=== PATIENT | male | born 1945 | race Caucasian/White ===

== ENCOUNTER → 2017-01-13 19:14 | Outpatient (CLI) | payer MEDICARE, OTHER ==
[2015-12-18 10:08] VITALS: BMI 43.0
[~2017-01-13 19:14] MED LIST: ASPIRIN81 MG PO; BACLOFEN10 MG PO; BIOTIN5 MG PO; BOTOX200 UNIT INTRADERM; CALAN120 MG PO; COUMADIN5 MG PO; DEPAKOTE500 MG PO; ELIQUIS2.5 MG PO; GABAPENTIN100 MG PO; HCTZ25 MG PO; HYDROCODONE-APA1 TAB PO; IMITREX6 MG/0.51 SQ; K-DUR20 MEQ PO; LASIX40 MG PO; LOVENOX120 MG/0.8 SC; MAGNESIUM OXID250 MG PO; OMEGA 3 FISH OI1 CAP PO; OMEPRAZOLE20 M1 PO; PLAVIX75 MG PO; SYNTHROID175 MCG PO; VITAMIN B COMPL1 TAB PO; VITAMIN D250000 UNIT PO; ZOLOFT100 MG PO
== END | disposition home or self-care (01) ==
LOC: D.LABREF 19:14
DX: M25.562 Pain in left knee (principal); Z11.8 Encounter for screening for other infectious and parasitic diseases

== ENCOUNTER 2017-01-22 10:51 | Emergency (ER) | payer MEDICARE, OTHER ==
[2015-12-18 10:08] VITALS: BMI 43.0
[~2017-01-22 10:51] MED LIST changes: -BACLOFEN10 MG PO; -BIOTIN5 MG PO; -COUMADIN5 MG PO; -ELIQUIS2.5 MG PO; -LASIX40 MG PO; -LOVENOX120 MG/0.8 SC; -OMEGA 3 FISH OI1 CAP PO; -OMEPRAZOLE20 M1 PO; -VITAMIN B COMPL1 TAB PO
[2017-01-22 12:12] LABS: BASOPHILS 0.3 % (0-2); EOSINOPHILS 2.8 % (0-7); HEMATOCRIT 40.5 % (42.0-54.0); HEMOGLOBIN 13.1 g/dL (13.5-17.5); IMMATURE GRANULOCYTES 0.8 % (0-5); LYMPHOCYTES 26.6 % (15-50); MCH 28.8 pg (26.0-34.0); MCHC 32.3 g/dL (31.0-37.0); MEAN PLATELET VOLUME 9.9 fL (7.4-10.4); MONOCYTES 10.1 % (2-11); NEUTROPHILS 59.4 % (40-80); PLATELET COUNT 151 10x3/uL (130-400); RBC 4.55 10x6/uL (4.20-6.10); RDW 13.5 % (11.5-14.5); WBC 7.5 10x3/uL (4.8-10.8)
[2017-01-22 12:26] LABS: ALBUMIN 3.5 g/dL (3.4-5.0); ALKALINE PHOSPHATASE 108 U/L (46-116); ALT (SGPT) 27 U/L (10-68); BILIRUBIN - TOTAL 0.31 mg/dL (0.2-1.3); CALC OSMOLALITY 279 mosm/kg (275-300); CHLORIDE - SERUM 100 mmol/L (98-107); CREATININE - SERUM 0.8 mg/dL (0.6-1.3); GLUCOSE 107 mg/dL (74-106); POTASSIUM - SERUM 4.1 mmol/L (3.5-5.1); PROTEIN - SERUM 7.3 g/dL (6.4-8.2); SODIUM 139 mmol/L (136-145); UREA NITROGEN 19 mg/dL (7-18); VALPROIC ACID (DEPAKOTE) 64.6 ug/mL (50.0-100.0); eGFR NON AFRICAN AMERICAN > 90 mL/min (90-120)
[2017-02-23] MEDS ORDERED: OMEGA 3 FISH OI1 CAP PO (09:02)
[2017-02-23] MEDS ORDERED: OMEPRAZOLE20 M1 PO (09:03)
[2017-02-23] MEDS ORDERED: BACLOFEN10 MG PO (09:03)
[2017-02-23] MEDS ORDERED: LASIX40 MG PO (09:04)
[2017-02-23] MEDS ORDERED: BIOTIN5 MG PO (09:06)
[2017-02-23] MEDS ORDERED: VITAMIN B COMPL1 TAB PO (09:07)
== END 2017-01-22 14:44 | disposition home or self-care (01) ==
LOC: D.ER 10:51
PROVIDERS: Emergency Medicine
DX: T65.91XA Toxic effect of unspecified substance, accidental (unintentional), initial encounter (principal); Y92.029 Unspecified place in mobile home as the place of occurrence of the external cause; G24.9 Dystonia, unspecified

== ENCOUNTER → 2017-02-16 19:38 | Outpatient (CLI) | payer MEDICARE, OTHER ==
[2015-12-18 10:08] VITALS: BMI 43.0
[~2017-02-16 19:38] MED LIST changes: +BACLOFEN10 MG PO; +BIOTIN5 MG PO; +COUMADIN5 MG PO; +ELIQUIS2.5 MG PO; +LASIX40 MG PO; +LOVENOX120 MG/0.8 SC; +OMEGA 3 FISH OI1 CAP PO; +OMEPRAZOLE20 M1 PO; +VITAMIN B COMPL1 TAB PO
== END | disposition home or self-care (01) ==
LOC: D.SLEEP 19:38
DX: G47.33 Obstructive sleep apnea (adult) (pediatric) (principal)

== ENCOUNTER 2017-02-24 10:00 | Inpatient (IN) | payer MEDICARE, OTHER ==
[~2017-02-24] VITALS: Ht 177.8 cm; Wt 135.9 kg
[~2017-02-24 10:00] MED LIST changes: -COUMADIN5 MG PO; -ELIQUIS2.5 MG PO; -LOVENOX120 MG/0.8 SC
[2017-02-24 11:41] LABS: BASOPHILS 0.3 % (0-2); EOSINOPHILS 5.9 % (0-7); HEMATOCRIT 40.9 % (42.0-54.0); HEMOGLOBIN 13.3 g/dL (13.5-17.5); IMMATURE GRANULOCYTES 0.4 % (0-5); LYMPHOCYTES 31.5 % (15-50); MCH 28.7 pg (26.0-34.0); MCHC 32.5 g/dL (31.0-37.0); MCV 88.3 fL (80.0-100.0); MEAN PLATELET VOLUME 9.7 fL (7.4-10.4); MONOCYTES 10.9 % (2-11); PLATELET COUNT 145 10x3/uL (130-400); RBC 4.63 10x6/uL (4.20-6.10); RDW 14.1 % (11.5-14.5)
[2017-02-24 11:42] LABS: APPEARANCE CLEAR (CLEAR); BILIRUBIN NEGATIVE (NEGATIVE); COLOR YELLOW (YELLOW); GLUCOSE NEGATIVE (NEGATIVE); KETONE NEGATIVE (NEGATIVE); NITRITE NEGATIVE (NEGATIVE); PROTEIN NEGATIVE (NEGATIVE); SPECIFIC GRAVITY 1.015 (1.005-1.020); UROBILINOGEN NORMAL (NORMAL)
[2017-02-24 11:52] LABS: CALC OSMOLALITY 288 mosm/kg (275-300); CALCIUM 9.2 mg/dL (8.5-10.1); CARBON DIOXIDE 33.2 mmol/L (21.0-32.0); CHLORIDE - SERUM 102 mmol/L (98-107); POTASSIUM - SERUM 4.1 mmol/L (3.5-5.1); SODIUM 142 mmol/L (136-145); UREA NITROGEN 21 mg/dL (7-18); eGFR NON AFRICAN AMERICAN 79 mL/min (90-120)
[2017-02-24 11:54] LABS: GLUCOSE 157 mg/dL (74-106)
[2017-02-24 12:05] LABS: APTT 28.3 SECONDS (22.8-39.4); INR 1.05 (0.85-1.17); PROTIME 13.6 SECONDS (11.6-15.0)
[2017-03-01 12:23] VITALS: BMI 42.4
--- NOTE | 2017-03-01 20:01 | NUR ---
CONSULTED ANETHESIA REGARDING DECREASED O2 SAT AND UNABLE TO MAINTAIN O2 SAT ABOVE 92% ON OXYMIZER. VERBAL ORDERS GIVEN TO ADMINISTER LEVALBUTEROL INHALATION 0.63 MG/3ML UPDRAFT X1 IN PACU.
[2017-03-01 20:40] VITALS: BP 158/73
--- NOTE | 2017-03-01 20:40 | NUR ---
PT ARRIVED ON UNIT VIA STRETCHER, HOOKED TO MONITORS, PT IS ALERT AND ORIENTED, FAMILY AT BEDSIDE, UPDATE GIVEN
[2017-03-01 20:50] VITALS: BP 158/73; Ht 177.8 cm; Wt 135.9 kg
[2017-03-01 21:00] VITALS: BP 153/79
--- NOTE | 2017-03-01 21:58 | NUR ---
CONSULTED ANETHESIA REGARDING UNABLE TO MAINTAIN OXYGEN SATURATION OVER 94% ON OXYMIZER. VERBAL ORDERS GIVEN BY DR THOMAS AND DR BUNN TO ADMIT PATIENT TO ICU.
[2017-03-01 22:00] VITALS: BP 175/70
[2017-03-01 23:00] VITALS: BP 161/78
--- NOTE | 2017-03-01 23:00 | NUR ---
REASSESSMENT COMPLETE, NO CHANGES NOTED, VSS, CALL LIGHT IN REACH
[2017-03-01 23:42] VITALS: BP 161/78
[2017-03-02] VITALS (13 sets, daily range): BP systolic 121–161; BP diastolic 9–97
--- NOTE | 2017-03-02 01:15 | NUR ---
PT RESTING COMFORTABLY AT THIS TIME, NO NEEDS NOTED, WILL CON'T TO MONITOR
--- NOTE | 2017-03-02 03:20 | NUR ---
PT AWAKE AT THIS TIME, DENIES ANY NEEDS, VSS, CALL LIGHT REACH, WILL CON'T TO MONITOR
[2017-03-02 03:57] LABS: HEMATOCRIT 37.4 % (42.0-54.0); HEMOGLOBIN 11.6 g/dL (13.5-17.5); MCH 28.2 pg (26.0-34.0); MCV 90.8 fL (80.0-100.0); MEAN PLATELET VOLUME 9.5 fL (7.4-10.4); RBC 4.12 10x6/uL (4.20-6.10); WBC 9.8 10x3/uL (4.8-10.8)
--- NOTE | 2017-03-02 05:15 | NUR ---
PT RESTING AT THIS TIME, WILL CON'T TO MONITOR
--- NOTE | 2017-03-02 10:49 | NUR ---
0800 AM ASSESMENT IS COMPLETE.. SEE FLOW SHEET FOR FINDINGGS.. PT IS C/O MIGRAIN HEADACHE,,, So CAO APN FOR WILLIAM CALLED AND INFORMED ORDER RECIEVED FOR IMTREX.. PT TAKES A HOME MED.. PT IS VOMITING BILE SECONDARY TO HEADACHE STATES THIS HAPPENS ALL THE TIME.. 0830 IMTREX GIVEN .. PER ORDER.. 0845 PT STATES HE FEELS ALOT BETTTER.. 0850 BREAKFAST SERVED AND PT ASSIST WITH REPOSITIONING .. FEEDING SELF... WITHOUT VISITORS..
--- NOTE | 2017-03-02 10:59 | NUR ---
1000 TRANSFER ORDER RECIEVVED 1045 ROOM OBTAINED ON FLOOR...
--- NOTE | 2017-03-02 12:37 | NUR ---
1130 PAIN MED GIVEN.. 1200 LUNCH SERVED.. REPORT CALLED TO FLOOR
--- NOTE | 2017-03-02 13:09 | OP ---
PATIENT NAME: DAVON MONGE MEDICAL RECORD: [id number] :49 LOCATION:[facility] D.[id number] ADMISSION DATE:03/01/17 SURGEON: BRYAN THOMAS MD DATE OF OPERATION: 03/01/2017 PREOPERATIVE DIAGNOSIS: Painful left total knee arthroplasty. POSTOPERATIVE DIAGNOSIS: Painful left total knee arthroplasty. PROCEDURE: Revision left total knee arthroplasty. SURGEON: Bryan Thomas MD ANESTHESIA: General. INTRAOPERATIVE COMPLICATIONS: None. SUMMARY OF PATHOLOGIC FINDINGS: There was absolutely no bonding of the cement to the posterior aspect of the tibial baseplate of this Biomet knee, Palacos cement was used. It was removed quite easily from the tibia. IMPLANTS USED: Vicki Triathlon total stabilizing revision total knee, size #6 tibial baseplate, universal size #7 femoral stem, universal 150 x 18 femoral fluted stem, 160 x 100 fluted tibial stem, 4 mm offset on the tibia, 5 mm medial and lateral wedges under the tibial baseplate, 5 mm distal augmentations on the femur, no offset on the femur, polyethylene total stabilizer tibial insert, size 19 x 6. OPERATIVE SUMMARY IN DETAIL: After obtaining the appropriate preoperative orthopedic surgery consent as well as anesthetic consultation, evaluation and clearance, the patient was brought to the operating room and placed on the operating table in the supine position. After general laryngeal mask was administered, tourniquet was placed about the proximal aspect of the left lower extremity. Left lower extremity was then prepped and draped in routine sterile fashion. The leg was elevated and exsanguinated, tourniquet inflated to 350 mmHg. Routine midline incision was taken down for paramedian arthrotomy. Patella was swept laterally. The femoral and tibial components were exposed. Attention was first turned to removal of the tibial component. The tibial component did seem to be well seated; however, as the patient needed total stabilizer insert, the femur had to be removed. Serial and sequential removal of the femur was done with very minimal bone loss. Having completed this, attention was turned to the tibia. The closed pin locking device of the Biomet total knee system was removed. Polyethylene was removed. At this point, an osteotome was placed between the tibial baseplate and the Palacos cement and a tibial baseplate was removed with very little difficulty and the Palacos cement was removed using a saw. At this point, attention was turned to the femoral component and serial and sequential reaming was done to a size 18. The distal cleanup cuts were made followed by measuring, followed by chamfer cuts using the Triathlon total stabilizing guide. In turn the notch was cut and the trial was put into place with a good fit. OPERATIVE REPORT [id number] DAVON MONGE Attention was then turned to the tibia. All cement was removed from the tibial canal. Serial and sequential reamings were done for a 100-mm stem size #16. The baseplate was then appropriately positioned and it was felt that 4 mm offset set at the 10 o'clock position was the most appropriate. Having completed this, final distal tibial preparations were made. Trials were undertaken with the polyethylene. At this point, all trials were taken out. The knee was irrigated in a pulsatile lavage fashion. The components were then assembled on the backtable. All components were cemented into place. All excess cement was removed. After the cement was allowed to harden, trial was undertaken and it was felt that the #19 polyethylene insert was more stable. #19 final polyethylene insert was put into place. The knee was again taken through range of motion and found to be stable in all planes. Copious irrigation was then followed by lateral release. This was then followed by closure of the paramedian arthrotomy with #2 Ethibond. This was then followed by #1 Vicryl, 2-0 Vicryl, and skin angie. Sterile dressings were applied. Tourniquet was deflated. The patient was awakened, taken to the recovery in stable condition. All final needle and sponge counts were correct. TRANSINT:[id number] Voice Confirmation ID: [id number] DOCUMENT ID: [id number] WILLIAM FOOTE, BRYAN KERN at 1309 CC: [id number] DICTATION DATE: 03/01/171903 DIVE MASTER: 03/02/17 0042 [facility] [address] [id number]
--- NOTE | 2017-03-02 13:20 | NUR ---
PT RECEIVED TO ROOM FROM ICU. RR EVEN AND UNLABORED, VSS. PT DENIES NEEDS AT THIS TIME. ORIENTED PT TO UNIT. WILL CTM.
--- NOTE | 2017-03-02 16:30 | NUR ---
PT C/O SEVERE PAIN 10/10 IN KNEE AREA. WILL GIVE PRN PAIN MEDS AND CTM.
--- NOTE | 2017-03-02 17:50 | NUR ---
PT STILL C/O PAIN AT 08/19. REQUESTED PERCOCET. WILL GIVE AND CTM.
--- NOTE | 2017-03-02 18:40 | NUR ---
PT RESTING QUIETLY, RR EVEN AND UNLABORED. PTS PAIN HAS DECREASED TO 3/10. PT DENIES FURTHER NEEDS AT THIS TIME, WILL GIVE REPORT ON PT CONDTION FOR THE DAY.
--- NOTE | 2017-03-02 19:15 | NUR ---
RECIEVED SHIFT REPORT. PT IS LYING IN BED. ALERT AND ORIENTED AND ABLE TO VERBALIZE NEEDS. IV IS PATENT AND SALINE LOC AT THIS TIME. SCD'S ON. PT IS AMBULATORY WITH ASSISTANCE. DRESSING TO RIGHT KNEE C/D/I. PT STATES PAIN IS 5/10. O2 @ 2 PER NASAL CANNULA. NO NEEDS ARE VERBALIZED AT THIS TIME. WILL CONTINUE TO MONITOR. SIDE RAILS ARE UP X 2. BED IS IN LOWEST POSITION. CALL LIGHT IS WITHIN REACH.
--- NOTE | 2017-03-02 20:22 | NUR ---
SHIFT ASSESSMENT COMPLETED. NIGHT MEDS GIVEN WITH NO PROBLEMS. PT C/O PAIN 09/19. ADMINISTERED PRESCRIBED PRN NORCO PER ORDER. DENIES FURTHER NEEDS. WILL MONITOR. SIDE RAILS X 2. BED LOW. CALL LIGHT IN REACH.
[2017-03-03 03:30] VITALS: BP 131/60
[2017-03-03 05:35] LABS: HEMATOCRIT 32.3 % (42.0-54.0); MCH 28.8 pg (26.0-34.0); MEAN PLATELET VOLUME 9.7 fL (7.4-10.4); RBC 3.47 10x6/uL (4.20-6.10); RDW 14.6 % (11.5-14.5); WBC 8.3 10x3/uL (4.8-10.8)
[2017-03-03 05:42] LABS: MCV 93.1 fL (80.0-100.0)
--- NOTE | 2017-03-03 07:40 | NUR ---
ASSESSMENT COMPLETE. SL TO L FA. DRESSING TO L KNEE C/D/I. O2 2L NC IN USE. DENIES ANY NEEDS AT THIS TIME.
[2017-03-03 07:52] VITALS: BP 145/55
--- NOTE | 2017-03-03 08:19 | NUR ---
Patient Name: DAVON MONGE Admission Status: Elective Accout number: [id number] Admission Date: 03-01-2017 : 1945 Admission Diagnosis: Attending: BRYAN THOMAS Current LOS: 2 Anticipated DC Date: Planned Disposition: Home with Home Health Primary Insurance: MEDICARE A & B Discharge Planning Comments: CM met with patient to assess discharge planning needs. Patient lives independently at home with his where he plans to return on discharge. He has 3 steps in his home. He has a walker, CPAP, Crutches & bedside commode at his home. Patient would like to do home health with PT, this is what he had before b/c of transportation issues to and from PT. CM will set this up prior to discharge. CM will continue to follow and assist with discharge planning needs. PCP: Maia Vasquez () Valve Repairer: Zelda Villarreal * Is the patient Alert and Oriented? Yes 0 * How many steps to enter\exit or inside your home? 3 0 * PCP Maia 0 * Pharmacy [facility] 0 * Preadmission Environment Home with Family 0 * ADLs Independent 0 * Equipment Bedside Commode CPAP Crutch Walker 0 * List name and contact numbers for known caregivers / representatives who currently or will assist patient after discharge: Christina () 0 * Additional services required to return to the preadmission environment? Yes 0 * Can the patient safely return to the preadmission environment? Yes 0 * Has this patient been hospitalized within the prior 30 days at any hospital? No 0 Grand Total: 0
--- NOTE | 2017-03-03 09:27 | NUR ---
Patient set up with OP PT at [facility] for WednesdayMar 08 at 9:15 CM verified with [facility] on the CPM machine and they will deliver today. CM will continue to follow and assist with discharge planning needs.
--- NOTE | 2017-03-03 10:43 | NUR ---
HOME PT SET UP FOR WEDNESDAY WITH [facility] ([facility]) SIGNED AND PLACED IN CHART. REFERRAL FAXED TO [phone] PHONE # FOR [facility] IN [place] [phone]
--- NOTE | 2017-03-03 12:00 | NUR ---
NO CHANGES NOTED AT THIS TIME.
[2017-03-03] MEDS ORDERED: ELIQUIS2.5 MG PO (12:22)
--- NOTE | 2017-03-03 15:25 | NUR ---
DISCHARGE TEACHING GIVEN TO PATIENT AND FAMILY. SL REMOVED.CATHETER TIP INTACT. DRESSING TO L KNEE CHANGED. SANTY INTACT TO INCISION. INCISION CLEANED AND COVERED WITH AQUA LYNDSAY DRESSING APPLIED. SCRIPT FOR ELIQUIS SENT WITH PATIENT.
--- NOTE | 2017-03-03 15:36 | NUR ---
DC'D HOME WITH FAMILY. ESCORTED TO VEHICLE BY VOLUNTEER VIA WC WITH BELONGINGS.
--- NOTE | 2017-03-16 16:49 | NUR ---
Patient Name: DAVON MONGE Admission Status: ER Accout number: [id number] Admission Date: 03-14-2017 : 1945 Admission Diagnosis:ACUTE EMBOLISM AND THROMBOSIS OF LEFT POPLITEAL VEIN Attending: SARAH Current LOS: 2 Anticipated DC Date: 03-20-2017 Planned Disposition: Home Primary Insurance: MEDICARE A & B Discharge Planning Comments: CM MET WITH PATIENT AND (HEATHER) REGARDING D/C NEEDS AND PLANS. PATIENT LIVES WITH HIS AND SHE WILL DRIVE HIM HOME AT DISCHARGE. PATIENT STATED THERE ARE 3 STEPS W/RAILS TO ENTER HOME AND 1 STAIRCASE W/RAILS TO BASEMENT. PATIENT STATED HE IS INDEPENDENT WITH HIS CARE AND HAS A SHOWER CHAIR, WALKER, WHEELCHAIR, WALKER, BS COMMODE, CANE, CRUTCHES, AND SCOOTER AT HOME. PATIENTS PCP IS DR. RODRIGUEZ AND PHARMACY IS [facility] IN [place]. PATIENT REFUSING HOME HEALTH AND WANTS TO CONTINUE OUTPATIENT PT AT [place]. CM WILL CONTINUE TO FOLLOW PATIENT WITH D/C NEEDS AND PLANS. PCP DR[phone] HEATHER () [phone] Rf Microwave Engineer: Wendy Silverman Is the patient Alert and Oriented? Yes 0 * How many steps to enter\exit or inside your home? 3 W/RAILS 0 * PCP DR. RODRIGUEZ 0 * Pharmacy [facility] 0 * Preadmission Environment Home with Family 0 * ADLs Partial Dependent 0 * Partial ADLs (Assistance needed) Medication Management 0 * Equipment Bedside Commode Cane Crutch Shower Chair Walker Wheelchair 0 * List name and contact numbers for known caregivers / representatives who currently or will assist patient after discharge: HEATHER () [phone] 0 * Community resources currently utilized None 0 * Additional services required to return to the preadmission environment? Yes 0 * Can the patient safely return to the preadmission environment? Yes 0 * Has this patient been hospitalized within the prior 30 days at any hospital? Yes 0 Grand Total: 0
== END 2017-03-03 15:36 | disposition home health service (06) | DRG 468 ==
LOC: D.SDCHOLD 10:00 → D.MS 03-01 10:45 → D.ICU 03-01 10:45 → D.SDCHOLD 03-01 10:45 → D.ICU 03-01 20:26 → D.MS 03-02 13:19
PROVIDERS: ADMIT Orthopaedic Surgery
PROC: 0SRD0JZ Replacement of Left Knee Joint with Synthetic Substitute, Open Approach (ICD-10-PCS; 2017-03-01)
PROC: 0SPD0JZ Removal of Synthetic Substitute from Left Knee Joint, Open Approach (ICD-10-PCS; principal; 2017-03-01 12:45)
DX: T84.84XA Pain due to internal orthopedic prosthetic devices, implants and grafts, initial encounter (principal); Y79.2 Prosthetic and other implants, materials and accessory orthopedic devices associated with adverse incidents; I25.10 Atherosclerotic heart disease of native coronary artery without angina pectoris; I10 Essential (primary) hypertension; K21.9 Gastro-esophageal reflux disease without esophagitis; E03.9 Hypothyroidism, unspecified; I48.91 Unspecified atrial fibrillation; G43.909 Migraine, unspecified, not intractable, without status migrainosus

== ENCOUNTER 2017-03-14 12:41 | Inpatient (IN) | payer MEDICARE, OTHER ==
[~2017-03-14] VITALS: Ht 177.8 cm; Wt 136.4 kg
[~2017-03-14 12:41] MED LIST changes: +ELIQUIS2.5 MG PO
[2017-03-14 13:14] LABS: BASOPHILS 0.1 % (0-2); EOSINOPHILS 0.3 % (0-7); HEMATOCRIT 33.4 % (42.0-54.0); HEMOGLOBIN 10.5 g/dL (13.5-17.5); IMMATURE GRANULOCYTES 0.6 % (0-5); LYMPHOCYTES 5.1 % (15-50); MCHC 31.4 g/dL (31.0-37.0); MCV 92.3 fL (80.0-100.0); MEAN PLATELET VOLUME 8.8 fL (7.4-10.4); MONOCYTES 7.2 % (2-11); NEUTROPHILS 86.7 % (40-80); RBC 3.62 10x6/uL (4.20-6.10); RDW 15.5 % (11.5-14.5); WBC 16.3 10x3/uL (4.8-10.8)
[2017-03-14 13:15] LABS: PLATELET COUNT 226 10x3/uL (130-400)
[2017-03-14 14:15] LABS: APTT 31.4 SECONDS (22.8-39.4); INR 1.21 (0.85-1.17); PROTIME 14.9 SECONDS (11.6-15.0)
[2017-03-14 14:16] LABS: ALBUMIN 3.3 g/dL (3.4-5.0); ALKALINE PHOSPHATASE 107 U/L (46-116); ALT (SGPT) 15 U/L (10-68); BILIRUBIN - TOTAL 1.02 mg/dL (0.2-1.3); CALC OSMOLALITY 275 mosm/kg (275-300); CALCIUM 8.7 mg/dL (8.5-10.1); CARBON DIOXIDE 30.2 mmol/L (21.0-32.0); CHLORIDE - SERUM 98 mmol/L (98-107); CREATININE - SERUM 0.8 mg/dL (0.6-1.3); GLUCOSE 153 mg/dL (74-106); POTASSIUM - SERUM 3.9 mmol/L (3.5-5.1); PROTEIN - SERUM 7.2 g/dL (6.4-8.2); SODIUM 136 mmol/L (136-145); UREA NITROGEN 14 mg/dL (7-18); eGFR NON AFRICAN AMERICAN > 90 mL/min (90-120)
[2017-03-14 15:19] LABS: APPEARANCE HAZY (CLEAR); BILIRUBIN NEGATIVE (NEGATIVE); COLOR DK YELLOW (YELLOW); GLUCOSE NEGATIVE (NEGATIVE); KETONE NEGATIVE (NEGATIVE); NITRITE POSITIVE (NEGATIVE); PROTEIN TRACE mg/dL (NEGATIVE)
[2017-03-14 15:27] LABS: RED CELLS - URINE 0-5 /hpf (0-5)
[2017-03-14 15:28] LABS: BACTERIA MANY /hpf (NONE SEEN); EPITHELIAL CELLS RARE /hpf (0-5)
--- NOTE | 2017-03-14 19:20 | NUR ---
PT ARRIVED ON UNIT VIA STRETCHER ESCORTED BY ER STAFF. TRANSFERRED TO BED AND ORIENTED TO ROOM AND CALL LIGHT. IV FLUIDS RE-STARTED.
[2017-03-14 20:00] VITALS: BP 163/99
--- NOTE | 2017-03-14 20:52 | NUR ---
GAVE MORPHINE 4 MG IVP PER PRN ORDER FOR PAIN AT LEVEL 8/10. WILL MONITOR FOR EFFECTIVENESS.
--- NOTE | 2017-03-14 21:30 | NUR ---
PT EATING FOOD BROUGHT BY SPOUSE.
[2017-03-14 21:47] VITALS: BP 163/99; BMI 43.1
--- NOTE | 2017-03-14 22:42 | NUR ---
ADMISSION ASSESSMENT AND HISTORY COMPLETE. HOME MEDICATION RECONCILIATION COMPLETE.
[2017-03-15 04:00] VITALS: BP 157/64
--- NOTE | 2017-03-15 07:50 | NUR ---
PT HERE FOR UTI AND DVT FOR THIS VISIT IV TO LEFT AC PATENT AND INTACT AT THIS TIME SRX2 BED AT LOWEST SETTING CALL LIGHT WITHIN REACH WILL CONTINUE TO MONITOR
--- NOTE | 2017-03-15 08:00 | NUR ---
PT ASSESSMENT COMPLETE NO DISTRESS NTOED VOICES ALL NEEDS OT STAFF CALL LIGHT IREACH SANTY NOTED TO LEFT KNEE DR WILLIAM TROTTER HERE WILL AWAIT ORDERS
[2017-03-15 08:02] VITALS: BP 157/69
[2017-03-15 08:33] VITALS: Ht 177.8 cm; Wt 136.4 kg
--- NOTE | 2017-03-15 09:30 | NUR ---
REMOVED 38 SANTY PER ORDER APPLIED 16 STERI STRIPS TO KNEE
[2017-03-15 09:33] LABS: BASOPHILS 0.1 % (0-2); EOSINOPHILS 1.1 % (0-7); HEMATOCRIT 30.3 % (42.0-54.0); HEMOGLOBIN 9.5 g/dL (13.5-17.5); IMMATURE GRANULOCYTES 0.6 % (0-5); LYMPHOCYTES 11.7 % (15-50); MCH 28.7 pg (26.0-34.0); MCHC 31.4 g/dL (31.0-37.0); MCV 91.5 fL (80.0-100.0); MEAN PLATELET VOLUME 8.7 fL (7.4-10.4); MONOCYTES 8.2 % (2-11); NEUTROPHILS 78.3 % (40-80); PLATELET COUNT 205 10x3/uL (130-400); RBC 3.31 10x6/uL (4.20-6.10); RDW 15.3 % (11.5-14.5)
[2017-03-15 10:01] LABS: WBC 11.7 10x3/uL (4.8-10.8)
[2017-03-15 10:09] LABS: ALBUMIN 2.8 g/dL (3.4-5.0); ALKALINE PHOSPHATASE 96 U/L (46-116); ALT (SGPT) 15 U/L (10-68); BILIRUBIN - TOTAL 0.78 mg/dL (0.2-1.3); CALC OSMOLALITY 276 mosm/kg (275-300); CALCIUM 8.5 mg/dL (8.5-10.1); CARBON DIOXIDE 34.3 mmol/L (21.0-32.0); CHLORIDE - SERUM 101 mmol/L (98-107); CREATININE - SERUM 0.7 mg/dL (0.6-1.3); GLUCOSE 121 mg/dL (74-106); POTASSIUM - SERUM 3.8 mmol/L (3.5-5.1); PROTEIN - SERUM 6.5 g/dL (6.4-8.2); SODIUM 138 mmol/L (136-145); UREA NITROGEN 13 mg/dL (7-18); eGFR NON AFRICAN AMERICAN > 90 mL/min (90-120)
[2017-03-15 12:20] VITALS: BP 149/61
--- NOTE | 2017-03-15 13:00 | NUR ---
PT RESTING IN BED NO DISTRESS NOTED VOICES ALL NEEDS OT STAFF
[2017-03-15 16:21] VITALS: BP 168/66
[2017-03-15 20:00] VITALS: BP 164/62
--- NOTE | 2017-03-15 20:07 | NUR ---
PT UP TO BATHROOM, AT BEDSIDE, STATES PT NEEDS HIS MORPHINE. NO OTHER NEEDS. CONTINUE TO MONITOR CLOSELY.
[2017-03-16 04:00] VITALS: BP 129/72
--- NOTE | 2017-03-16 04:22 | NUR ---
PT CALLING FOR PRN MORPHINE, STATES HIS LT LEG PAIN IS AN 8 OUT 10 ON NUMERIC PAIN SCALE, DENIES ANY OTHER NEEDS. CONTINUE TO MONITOR CLOSELY.
[2017-03-16 05:32] LABS: BASOPHILS 0.1 % (0-2); HEMATOCRIT 28.2 % (42.0-54.0); HEMOGLOBIN 8.9 g/dL (13.5-17.5); IMMATURE GRANULOCYTES 0.9 % (0-5); LYMPHOCYTES 16.3 % (15-50); MCH 28.8 pg (26.0-34.0); MCHC 31.6 g/dL (31.0-37.0); MCV 91.3 fL (80.0-100.0); MEAN PLATELET VOLUME 9.1 fL (7.4-10.4); MONOCYTES 10.2 % (2-11); NEUTROPHILS 70.5 % (40-80); PLATELET COUNT 213 10x3/uL (130-400); RBC 3.09 10x6/uL (4.20-6.10); RDW 15.1 % (11.5-14.5)
[2017-03-16 05:55] LABS: WBC 7.6 10x3/uL (4.8-10.8)
[2017-03-16 05:56] LABS: ALBUMIN 2.7 g/dL (3.4-5.0); ALKALINE PHOSPHATASE 90 U/L (46-116); ALT (SGPT) 12 U/L (10-68); BILIRUBIN - TOTAL 0.75 mg/dL (0.2-1.3); CALC OSMOLALITY 276 mosm/kg (275-300); CALCIUM 8.1 mg/dL (8.5-10.1); CARBON DIOXIDE 30.7 mmol/L (21.0-32.0); CHLORIDE - SERUM 102 mmol/L (98-107); CREATININE - SERUM 0.7 mg/dL (0.6-1.3); GLUCOSE 99 mg/dL (74-106); PROTEIN - SERUM 5.6 g/dL (6.4-8.2); SODIUM 138 mmol/L (136-145); UREA NITROGEN 14 mg/dL (7-18); eGFR NON AFRICAN AMERICAN > 90 mL/min (90-120)
[2017-03-16 08:41] VITALS: BP 123/44
--- NOTE | 2017-03-16 08:45 | NUR ---
PT IS SITTING ON SIDE OF BED WITH SPOUSE ASSISTING PT GET UP TO RESTROOM, STATED PAIN IS AT A 6, NO OTHER NEEDS AT THIS TIME. NO SIGNS OF DISTRESS, CONTINUE WITH PLAN OF CARE
--- NOTE | 2017-03-16 10:34 | NUR ---
REMIANS WITHOUT NEEDS.CALL LIGHT IN REACH
--- NOTE | 2017-03-16 11:03 | NUR ---
NUTRITION F/U CHART REVIEWED. SPOKE WITH PT, NURSING. NO HX OF DM, OR DM MEDS. PT DENIES HX OF DM. DIET CHANGED TO REG, PROVIDED PT WITH NEW MENU FOR REG DIET. RD FOLLOWING
[2017-03-16 11:55] VITALS: BP 137/59
[2017-03-16 15:34] VITALS: BP 133/52
--- NOTE | 2017-03-16 19:30 | NUR ---
PT UP IN BATHROOM WITH ASSIST OF NO DISTRESS NOTED VOICES ALL NEEDS OT STAFF CALL LIGHT INREACH.
[2017-03-16 20:00] VITALS: BP 126/62
--- NOTE | 2017-03-16 20:15 | NUR ---
PATIENT IS AWAKE, ALERT AND ORIENTED X'S 4. NO SIGNS OF DISTRESS NOTED. RESPIRATIONS ARE EVEN AND UNLABORED. PATIENT'S FAMILY IS AT BEDSIDE, ALL DENY NEEDS AT THIS TIME. BED IN LOWEST POSITION, CALL LIGHT IN REACH. BED RIALS UP X'S 2.
[2017-03-17] VITALS: BP 145/64
[2017-03-17 04:00] VITALS: BP 132/66
[2017-03-17 06:08] LABS: BASOPHILS 0.4 % (0-2); EOSINOPHILS 5.2 % (0-7); HEMATOCRIT 28.1 % (42.0-54.0); HEMOGLOBIN 8.7 g/dL (13.5-17.5); LYMPHOCYTES 25.4 % (15-50); MCH 28.5 pg (26.0-34.0); MCV 92.1 fL (80.0-100.0); MEAN PLATELET VOLUME 9.3 fL (7.4-10.4); MONOCYTES 15.4 % (2-11); NEUTROPHILS 52.6 % (40-80); PLATELET COUNT 218 10x3/uL (130-400); RBC 3.05 10x6/uL (4.20-6.10); RDW 15.1 % (11.5-14.5)
[2017-03-17 06:24] LABS: WBC 4.8 10x3/uL (4.8-10.8)
[2017-03-17 06:44] LABS: INR 1.19 (0.85-1.17); PROTIME 14.7 SECONDS (11.6-15.0)
[2017-03-17 06:47] LABS: ALBUMIN 2.6 g/dL (3.4-5.0); ALKALINE PHOSPHATASE 116 U/L (46-116); ALT (SGPT) 16 U/L (10-68); CALC OSMOLALITY 278 mosm/kg (275-300); CALCIUM 8.3 mg/dL (8.5-10.1); CARBON DIOXIDE 31.6 mmol/L (21.0-32.0); CHLORIDE - SERUM 103 mmol/L (98-107); CREATININE - SERUM 0.8 mg/dL (0.6-1.3); GLUCOSE 107 mg/dL (74-106); POTASSIUM - SERUM 4.6 mmol/L (3.5-5.1); PROTEIN - SERUM 5.6 g/dL (6.4-8.2); SODIUM 140 mmol/L (136-145); UREA NITROGEN 12 mg/dL (7-18); eGFR NON AFRICAN AMERICAN > 90 mL/min (90-120)
--- NOTE | 2017-03-17 07:02 | NUR ---
PT HAS BEEN TREATED FOR PAIN SEVERAL TIMES THIS SHIFT. STERI STRIPS NOTED TO LEFT KNEE
--- NOTE | 2017-03-17 07:57 | NUR ---
PT IS LYING FLAT IN BED ON BACK, STATED HEADACHE IS AT A 7 AND KNEE PAIN IS AT A 5. SPOUSE AT BEDSIDE ASLEEP, PT JUST HAD MORHINE AT 0645 WILL BRING IN MEDS AT 0830 TO RELIEVE FARIAS. BED IN LOW POSITION, CALL LIGHT IN REACH
--- NOTE | 2017-03-17 09:03 | NUR ---
PATIENT SITTING UP IN BED WITH IV INTACT. EATING BREAKFAST AT THIS TIME. FAMILY AT BEDSIDE. CALL LIGHT WITHIN REACH.
[2017-03-17 09:31] VITALS: BP 106/53
--- NOTE | 2017-03-17 10:15 | NUR ---
Patient Name: DAVON MONGE Admission Status: ER Accout number: [id number] Admission Date: 03-14-2017 : 1945 Admission Diagnosis:ACUTE EMBOLISM AND THROMBOSIS OF LEFT POPLITEAL VEIN Attending: SARAH Current LOS: 3 Anticipated DC Date: 03-20-2017 Planned Disposition: Home Primary Insurance: MEDICARE A & B Discharge Planning Comments: CM MET WITH PATIENT AND (HEATHER) REGARDING D/C NEEDS AND PLANS. PATIENT STATED HE LIVES WITH HIS AND SHE WILL DRIVE HIM HOME AT DISCHARGE. PATIENT IS INDEPENDENT WITH HIS CARE EXCEPT FOR MEDICATION AND HIS HELPS. PATIENT HAS A WHEELCHAIR, BS COMMODE, CRUTCH, AND SHOWER CHAIR. PATIENTS PCP IS DR. RODRIGUEZ AND USES [facility]. PATIENT IS REFUSING HH AT THIS TIME. BEFORE ADMIT HE HAD OUTPATIENT PHYSICAL THERAPY. CM WILL CONTINUE TO FOLLOW PATIENT WITH D/C NEEDS AND PLANS. PCP DR. RODRIGUEZ [facility]- [facility] () [phone] Director Translation: Wendy Silverman Is the patient Alert and Oriented? Yes 0 * How many steps to enter\exit or inside your home? 3 W/RAILS 0 * PCP DR. RODRIGUEZ 0 * Pharmacy [facility] 0 * Preadmission Environment Home with Family 0 * ADLs Partial Dependent 0 * Partial ADLs (Assistance needed) Medication Management 0 * Equipment Bedside Commode Cane Crutch Shower Chair Walker Wheelchair 0 * List name and contact numbers for known caregivers / representatives who currently or will assist patient after discharge: HEATHER () [phone] 0 * Community resources currently utilized None 0 * Additional services required to return to the preadmission environment? Yes 0 * Can the patient safely return to the preadmission environment? Yes 0 * Has this patient been hospitalized within the prior 30 days at any hospital? Yes 0 Grand Total: 0
[2017-03-17 11:33] VITALS: BP 142/61
--- NOTE | 2017-03-17 13:45 | NUR ---
IV RESITED TO LEFT FORQRM X1 STICK 22G ASEPTIC TECH USED
[2017-03-17 16:34] VITALS: BP 140/62
[2017-03-17 20:00] VITALS: BP 115/80
--- NOTE | 2017-03-17 20:00 | NUR ---
ASSESSMENT PER FLOWSHEET. IV PATENT LEFT FOREARM OF NS AT 50CC'S/HR SITE CLEAR AT BEDSIDE. LEFT KNEE INCISION C/D/I WITH SANTY IN PLACE.
--- NOTE | 2017-03-17 20:22 | NUR ---
C/O PAIN IN LEFT LEG AREA. RATES PAIN LEVEL #6. MORPHINE 4 MG IVP GIVEN FOR PAIN CONTROL.
--- NOTE | 2017-03-17 21:00 | NUR ---
ROUTINE HS MEDS GIVEN PER JUN.
--- NOTE | 2017-03-17 23:56 | NUR ---
EYES CLOSED RESPIRATIONS WITH EASE AND UNLABORED.
[2017-03-18] VITALS: BP 115/83
--- NOTE | 2017-03-18 03:00 | NUR ---
RESTING QUIETLY DENIES NEEDS. AT BEDSIDE. NEW IV FLUID BAG HUNG TO PRESENT IV SITE.
[2017-03-18 04:00] VITALS: BP 124/85
--- NOTE | 2017-03-18 04:45 | NUR ---
C/O PAIN LEFT LEG RATES PAIN LEVEL #8 MORPHINE 4 MG IVP GIVEN FOR PAIN CONTROL.
[2017-03-18 06:08] LABS: BASOPHILS 0.4 % (0-2); EOSINOPHILS 5.8 % (0-7); HEMATOCRIT 31.2 % (42.0-54.0); HEMOGLOBIN 9.6 g/dL (13.5-17.5); IMMATURE GRANULOCYTES 2.3 % (0-5); LYMPHOCYTES 32.7 % (15-50); MCH 28.3 pg (26.0-34.0); MCHC 30.8 g/dL (31.0-37.0); MEAN PLATELET VOLUME 9.2 fL (7.4-10.4); MONOCYTES 12.5 % (2-11); NEUTROPHILS 46.3 % (40-80); PLATELET COUNT 261 10x3/uL (130-400); RBC 3.39 10x6/uL (4.20-6.10); WBC 5.2 10x3/uL (4.8-10.8)
[2017-03-18 06:21] LABS: INR 1.09 (0.85-1.17); PROTIME 13.7 SECONDS (11.6-15.0)
[2017-03-18 07:04] LABS: ALBUMIN 2.9 g/dL (3.4-5.0); ALKALINE PHOSPHATASE 128 U/L (46-116); ALT (SGPT) 16 U/L (10-68); BILIRUBIN - TOTAL 0.46 mg/dL (0.2-1.3); CALC OSMOLALITY 283 mosm/kg (275-300); CALCIUM 8.5 mg/dL (8.5-10.1); CARBON DIOXIDE 29.7 mmol/L (21.0-32.0); CHLORIDE - SERUM 103 mmol/L (98-107); CREATININE - SERUM 0.7 mg/dL (0.6-1.3); GLUCOSE 89 mg/dL (74-106); POTASSIUM - SERUM 4.3 mmol/L (3.5-5.1); PROTEIN - SERUM 6.8 g/dL (6.4-8.2); SODIUM 143 mmol/L (136-145); UREA NITROGEN 12 mg/dL (7-18); eGFR NON AFRICAN AMERICAN > 90 mL/min (90-120)
[2017-03-18 07:58] VITALS: BP 158/57
[2017-03-18 12:11] VITALS: BP 139/51
--- NOTE | 2017-03-18 14:23 | NUR ---
PT RESTING WITH FAMILY AT BEDSIDE, EASILY AROUSED. NO NEEDS VOICED AT THIS TIME. BED IN LOWEST POSITION, SIDE RAILS UP X 2, CALL LIGHT WITHIN REACH.
[2017-03-18 15:42] VITALS: BP 153/63
--- NOTE | 2017-03-18 17:49 | NUR ---
PT REQUESTED ICE PACK, HAD WALKED AROUND NURSES STATION EARLIER TODAY AND KNEE IS NOW SLIGHTLY SWOLLEN, GAVE PT ICE PACK
--- NOTE | 2017-03-18 19:00 | NUR ---
REPORT RECEIVED AND CARE OF PT ASSUMED. PT LYING IN SEMI WHITTAKER'S POSITION WATCHING TV. IV IN LEFT FA PATENT WITH NS INFUSING AT 50 ML / HR. TELEMETRY IN PLACE AND READING 75 SR AT THIS ASSESSMENT. LEFT LOWER LEG AND KNEE EDEMATOUS, WITH HEALING INCISION ON LEFT KNEE, WITH STERI STRIPS IN PLACE. WILL MONITOR CLOSELY FOR NEEDS.
--- NOTE | 2017-03-18 21:20 | NUR ---
HS MEDICATIONS GIVEN TO INCLUDE MORPHINE 4 MG IVP PER REQUEST FOR PAIN AT LEVEL 8/10. WILL MONITOR FOR EFFECTIVENESS.
--- NOTE | 2017-03-18 21:25 | NUR ---
HS SNACK OF CHOCOLATE PUDDING X2 PROVIDED TO PT. WILL CONTINUE TO MONITOR FOR NEEDS. IS AT BEDSIDE.
[2017-03-18 21:49] VITALS: BP 143/69
[2017-03-19 01:03] VITALS: BP 169/70
[2017-03-19 05:24] VITALS: BP 133/73
[2017-03-19 05:43] LABS: BASOPHILS 0.4 % (0-2); EOSINOPHILS 7.1 % (0-7); HEMATOCRIT 29.2 % (42.0-54.0); IMMATURE GRANULOCYTES 1.9 % (0-5); MCH 28.2 pg (26.0-34.0); MCHC 30.8 g/dL (31.0-37.0); MCV 91.5 fL (80.0-100.0); MEAN PLATELET VOLUME 9.2 fL (7.4-10.4); MONOCYTES 13.3 % (2-11); NEUTROPHILS 43.3 % (40-80); PLATELET COUNT 222 10x3/uL (130-400); RBC 3.19 10x6/uL (4.20-6.10); RDW 15.2 % (11.5-14.5); WBC 4.8 10x3/uL (4.8-10.8)
[2017-03-19 05:47] LABS: PROTIME 16.1 SECONDS (11.6-15.0)
[2017-03-19 05:51] LABS: INR 1.33 (0.85-1.17)
[2017-03-19 06:08] LABS: ALBUMIN 2.7 g/dL (3.4-5.0); ALKALINE PHOSPHATASE 112 U/L (46-116); ALT (SGPT) 13 U/L (10-68); BILIRUBIN - TOTAL 0.35 mg/dL (0.2-1.3); CALC OSMOLALITY 282 mosm/kg (275-300); CALCIUM 8.3 mg/dL (8.5-10.1); CARBON DIOXIDE 33.9 mmol/L (21.0-32.0); CHLORIDE - SERUM 103 mmol/L (98-107); CREATININE - SERUM 0.8 mg/dL (0.6-1.3); GLUCOSE 89 mg/dL (74-106); POTASSIUM - SERUM 4.7 mmol/L (3.5-5.1); PROTEIN - SERUM 6.3 g/dL (6.4-8.2); SODIUM 143 mmol/L (136-145); UREA NITROGEN 10 mg/dL (7-18); eGFR NON AFRICAN AMERICAN > 90 mL/min (90-120)
--- NOTE | 2017-03-19 08:00 | NUR ---
ASSESSMENT PER FLOW SHEET.PT WITHOUT DISTRESS.DENIES NEEDS AT PRESENT.CALL LIGHT IN REACH.MONITOR FOR NEEDS
[2017-03-19 08:26] VITALS: BP 145/66
--- NOTE | 2017-03-19 11:58 | NUR ---
AT SIDE.MEDS PER MAR ORDERED FOR HEADACHE.
[2017-03-19 13:03] VITALS: BP 162/61
[2017-03-19] MEDS ORDERED: LOVENOX120 MG/0.8 SC (13:31)
[2017-03-19] MEDS ORDERED: COUMADIN5 MG PO (13:33)
--- NOTE | 2017-03-19 14:54 | NUR ---
AT SIDE.PT WITHOUT NEEDS
[2017-03-19 16:10] VITALS: BP 155/75
--- NOTE | 2017-03-19 16:39 | NUR ---
LOVENOX E-SCRIBED TO [facility] IN [place]. [facility] STATED THAT THEY ONLY HAVE 1 DOSE AND CANNOT GET THE REST UNTIL WEDNESDAY. PATIENT ASKED THAT SCRIPT BE TRANSFERRED TO [facility] ON [address]. SPOKE WITH PHARMACIST @ [facility] TO CONFIRM. PRESCRIPTION CALLED TO [facility] ON [facility].
--- NOTE | 2017-03-19 17:31 | NUR ---
DISCHARGE INSTRUCTIONS,STATES UNDERSTANDING.IV DCD WITH CATH INTACT.
--- NOTE | 2017-03-19 18:30 | NUR ---
LEFT UNIT VIA WHEELCHAIR FOR TRANSPORT HOME
[2017-03-23 18:09] LABS: FACTOR II DNA ANALYSIS Negative (())
--- NOTE | 2017-05-05 11:58 | DS ---
PATIENT:DAVON MONGE :[birth year] MEDICAL RECORD: [id number] DISCHARGE SUMMARY ADMISSION DATE: 03/14/17 DISCHARGE DATE: 03/19/17 ADMIT DATE: 03/14/2017. DATE OF DISCHARGE: 03/19/2017. DISCHARGE DIAGNOSES: 1. Urinary tract infection. 2. Deep venous thrombosis. 3. Leukocytosis. 4. Chronic atrial fibrillation. 5. Hypothyroid, chronic. 6. Coronary artery disease, stable. 7. Sleep apnea. CONSULTS: 1. Dr. Gaytan. 2. Dr. Mcginnis IMAGES AND STUDIES: 1. Left lower extremity venous Doppler, which shows near occlusive DVT of the left popliteal vein. 2. Left knee x-ray, which shows postoperative changes from a left knee arthroplasty and a small residual knee joint effusion. HOSPITAL COURSE: The full H&P is listed elsewhere in the chart for this 71-year-old male who was admitted with the UTI and a DVT. He had undergone a total knee revision on 03/01/2017 and had had an uneventful clinical course, was sent home on Eliquis for DVT prophylaxis. He reported pain behind the knee and in the calf 1 week prior to admit. The venous Doppler did confirm popliteal deep vein thrombosis. He was admitted to the inpatient setting, started on subq Lovenox and also had a noted UTI, for which he was treated with antibiotic therapy. His cultures did not show any growth. He was on levofloxacin for the UTI. Dr. Mcginnis was consulted due to his DVT. It was recommended that he continue the Lovenox bridge and be converted over to Coumadin since he did develop a DVT while on Eliquis. A hypercoagulable workup was initiated. The patient's INR became therapeutic. His antibiotic therapy was deescalated. He was thought to be stable to discharge to home to follow up in the outpatient setting to see Dr. Carvalho on 03/23/2017 at 11 a.m. See med rec. TRANSINT:[id number] Voice Confirmation ID: [id number] DOCUMENT ID: [id number] Dictated By: BLUE CONNOR I have interviewed/examined the above patient and agree with these documented findings. at 1114 at 1158 CC: [id number] DICTATION DATE: 04/30/17 0852 [employer]REATMENT PLANT OPERATOR: 05/01/17 0140 DIS IN 03/19/17 [id number] [place] [address]
== END 2017-03-19 18:30 | disposition home or self-care (01) | DRG 300 ==
LOC: D.ER 12:41 → D.MS 17:12 → D.SDCHOLD 03-15 13:06 → D.MS 03-19 18:30
PROVIDERS: Emergency Medicine; Family Medicine; Internal Medicine Hematology & Oncology; ADMIT Family Medicine
DX: I82.432 Acute embolism and thrombosis of left popliteal vein (principal); N39.0 Urinary tract infection, site not specified; I10 Essential (primary) hypertension; E03.9 Hypothyroidism, unspecified; I48.91 Unspecified atrial fibrillation; G47.33 Obstructive sleep apnea (adult) (pediatric); F32.9 Major depressive disorder, single episode, unspecified; I25.10 Atherosclerotic heart disease of native coronary artery without angina pectoris

== ENCOUNTER 2017-04-20 19:43 | Emergency (ER) | payer MEDICARE, OTHER ==
[2017-03-15 08:33] VITALS: BMI 43.1
[~2017-04-20 19:43] MED LIST changes: +COUMADIN5 MG PO; +LOVENOX120 MG/0.8 SC
== END 2017-04-20 23:45 | disposition home or self-care (01) ==
LOC: D.ER 19:43
DX: S16.1XXA Strain of muscle, fascia and tendon at neck level, initial encounter (principal); V43.52XA Car driver injured in collision with other type car in traffic accident, initial encounter; Y93.89 Activity, other specified; Y92.410 Unspecified street and highway as the place of occurrence of the external cause; S29.012A Strain of muscle and tendon of back wall of thorax, initial encounter; S22.32XA Fracture of one rib, left side, initial encounter for closed fracture

== ENCOUNTER → 2017-05-19 19:32 | Outpatient (CLI) | payer MEDICARE, OTHER ==
[2017-03-15 08:33] VITALS: BMI 43.1
== END | disposition home or self-care (01) ==
LOC: D.SLEEP 04-20 08:00
DX: G47.33 Obstructive sleep apnea (adult) (pediatric) (principal)

== ENCOUNTER 2017-05-28 16:49 | Inpatient (IN) | payer MEDICARE, OTHER ==
[~2017-05-28] VITALS: Ht 177.8 cm; Wt 136.4 kg
--- NOTE | ~2017-05-28 | HEMODYNAMI ---
PATIENT:DAVON MONGE MEDICAL RECORD: [id number] : [birth year] LOCATION:[place] [address] ADMISSION DATE: 05/29/17 Generatedon:05/31/20178:32 Patient name: DAVON MONGE Patient #: [id number] SN: : 1945 Date of study: 05/31/2017 Page: Of Hemodynamic Procedure Report Patient Data Patient Demographics Procedure consent was obtained First Name: DAVON Gender: Male Last Name: SALEEM : 1945 Patient #: [id number] Age: 71 year(s) Race: Additional ID: [id number] Contact details [address]: [address] [place] [address] State: [place] City: [place] Zip code: [address] Past Medical History History of disease Date Diagnosis Comments Sleep apnea Hypertension Allergies: No known allergies Admission Admission Data Admission Date: 05/29/2017 Admission Time: 10:21 Room #: [facility] Lab Results Lab Result Date: 05/31/2017 Lab Result Time: 0:00 Biochemistry Name Units Result Min Max BUN mg/dl 14 --(--*-)-- 7 18 Creatinine mg/dl 0.9 --(-*--)-- 0.6 1.3 CBC Name Units Result Min Max Hemoglobin g/dl 11.5 *-(----)-- 13.5 17.5 Procedure Procedure Types Cath Procedure Diagnostic Procedure C [facility] w/Coronaries Miscellaneous Procedures Moderate Sedation up to 15 minutes Procedure Description Procedure Date Procedure Date: 05/31/2017 Procedure Start Time: 8:13 Procedure End Time: 8:31 Procedure Staff Name Function Avni Trejo MD Performing Physician Kathie Prieto RT Monitor Lucy Escobar RT Scrub Jaylen Jauregui RN Nurse Procedure Data Cath Procedure Fluoroscopy Diagnostic fluoroscopy Total fluoroscopy Time: 3.1 time: 3.1 min min Diagnostic fluoroscopy Total fluoroscopy dose: 831 dose: 831 mGy mGy Contrast Material Contrast Material Type Amount (ml) Isovue 300 60 Entry Location Entry Primary Successful Side Size Upsize Upsize Entry Closure Clark ccessful Closure Location (Fr) 1 (Fr) 2 (Fr) Remarks Device Remarks Radial Right 6 Fr Mechanical artery Short Compression Estimated blood loss: 5 ml Diagnostic catheters Device Type Used For End Catheter Placement DIAGNOSTIC David 110cm LV Angiography 5Fr catheter ([id number]) DIAGNOSTIC David 110cm Left Coronary 5Fr catheter ([id number]) Angiography DIAGNOSTIC David 110cm Right Coronary 5Fr catheter (295683) Angiography Procedure Complications No complications Procedure Medications Medication Administration Route Dosage Oxygen NC 2 l/min Lidocaine 2% added to field 20 Heparin Flush Bag added to field 2 bags (1000units/500ml NS) 0.9% NaCl I.V. 100 ml/hr Versed I.V. 1 mg Fentanyl I.V. 50 mcg Versed I.V. 1 mg Fentanyl I.V. 50 mcg Radial Cocktail I.A. 1 syringe (Verapomil 2mg/Nitro 400mcg/Heparin 1500units) Hemodynamics Rest Heart Rate: 62 (bpm) Pressure Samples Time Site Value (mmHg) Purpose Heart Use Rate(bpm) 8:17 LV 126/6,20 EDP 63 8:18 AO 105/60(75) Pullback 69 8:18 LV 123/5,17 Pullback 69 Gradients Valve Time Site 1 Site 2 Mean SEP/DFP Peak To Heart Use (mmHg) (sec/min) Peak Rate (mmHg) (bpm) Aortic 8:18 LV AO 14 14 18 69 123/5,17 105/60(75) Calculations Valve P-P Mean Valve Index Valve Source Name Gradient Area Flow (cm2) Aortic 18 14 18 14 Snapshots Pre Cath Intra NCS Post Cath Vital Signs Time Heart Resp SPO2 etCO2 NIBP (mmHg) Rhythm Pain Sedation Rate (ipm) (%) (mmHg) Status Level (bpm) 8:04:08 57 14 95 29.2 Measuring NSR 0 (11) 10(A) , No pain 8:04:16 58 14 98 29.2 116/45(100) NSR 0 (11) 10(A) , No pain 8:09:07 58 16 94 24.7 96/48(68) NSR 0 (11) 10(A) , No pain 8:14:47 59 17 95 15 127/34(69) NSR 0 (11) 9(A) , No pain 8:19:31 62 14 100 27.7 119/52(79) NSR 0 (11) 9(A) , No pain 8:24:27 66 15 95 11.2 119/38(78) NSR 0 (11) 9(A) , No pain 8:30:10 68 15 94 27 143/32(85) NSR 0 (11) 10(A) , No pain Medications Time Medication Route Dose Verified Delivered Reason Notes E ffectiveness by by 8:02:30 Oxygen NC 2 l/min Avni Buffie used for Neil Jauregui RN procedure 8:02:37 Lidocaine 2% added 20ml Avni Avni for local to vial Neil Trejo MD anesthetic field 8:02:44 Heparin Flush added 2 bags Avni Avni used for Bag to Neil Trejo MD procedure (1000units/500ml field NS) 8:02:54 0.9% NaCl I.V. 100 Avni Buffie Per ml/hr Neil Jauregui RN physician 8:07:52 Versed I.V. 1 mg Avni Buffie for sedation Neil Jauregui RN 8:07:57 Fentanyl I.V. 50 mcg Avni Buffie for sedation Neil Jauregui RN 8:15:02 Versed I.V. 1 mg Avni Buffie for sedation Neil Jauregui RN 8:15:06 Fentanyl I.V. 50 mcg Avni Buffie for sedation Neil Jauregui RN 8:16:08 Radial Cocktail I.A. 1 Avni Avni for (Verapomil syringe Neil Trejo MD vasodilation 2mg/Nitro 400mcg/Heparin 1500units) Procedure Log Time Note 7:27:53 Time tracking: Regular hours 7:27:58 Plan of Care:Hemodynamics will remain stable., Cardiac rhythm will remain stable., Comfort level will be maintained., Respiratory function will remain adequate., Patient/ family verbilizes understanding of procedure., Procedure tolerated without complication., Recovers from procedure without complications.. 7:29:12 Lab Result : BUN 14 mg/dl 7:29:12 Lab Result : Hemoglobin 11.5 g/dl 7:29:12 Lab Result : Creatinine 0.9 mg/dl 7:36:20 Signed procedure consent form obtained from patient. 7:36:50 Buffie Jauregui RN sent for patient. Start room use. 7:48:33 Patient received from Med II to CCL 1 Alert and oriented. Tansferred to table in Supine position. 7:48:34 Warm blankets applied, and jamla hugger turned on for patient comfort. 7:48:35 Correct patient and procedure confirmed by team. 7:48:36 ECG and BP/O2 sat monitors applied to patient. 8:02:30 Oxygen 2 l/min NC was administered by Jaylen Jauregui RN; used for procedure; 8:02:37 Lidocaine 2% 20ml vial added to field was administered by Avni Trejo MD; for local anesthetic; 8:02:44 Heparin Flush Bag (1000units/500ml NS) 2 bags added to field was administered by Avni Trejo MD; used for procedure; 8:02:54 0.9% NaCl 100 ml/hr I.V. was administered by Jaylen Jauregui RN; Per physician; 8:02:57 Vital chart was started 8:04:02 Rhythm: sinus bradycardia 8:06:12 Full Disclosure recording started 8:06:29 H&P Date Dictated: 05/29/2017 Within 30 days and on chart.. 8:06:30 Pre-procedure instructions explained to patient. 8:06:30 Pre-op teaching completed and patient verbalized understanding. 8:06:31 Family in patients room. 8:06:38 Patient NPO since Midnight. 8:06:45 Patient allergic to No known allergies 8:06:47 Is the patient allergic to Iodine/contrast media? No. 8:06:51 Is patient on blood thinner?No 8:06:52 Patient diabetic? No. 8:06:55 Previous problem with sedation/anesthesia? No ? 8:06:56 Snore? Yes 8:06:57 Sleep apnea? No 8:06:58 Deviated septum? No 8:06:59 Opens mouth fully? Yes 8:07:00 Sticks out tongue? Yes 8:07:07 Dentures? No ? 8:07:08 Airway obstruction? No ? 8:07:12 Pre procedure: right dorsailis pedis pulse 1+ Palpable, but thready & weak; easily obliterated 8:07:14 Modified Jae's test Ulnar < 7 seconds 8:07:16 Patient pain scale 0/10 ?. 8:07:22 IV patent on arrival in right forearm with 0.9% NaCl at O. 8:07:25 Lab results completed and on chart. 8:07:28 Right Radial & Right Groin area was prepped with chlora-prep and draped in sterile fashion 8:07:29 Alarms reviewed by R. N. 8:07:29 Sharps counted by scrub and verified by R.N. 8:07:32 Final Timeout: patient, procedure, and site verified with staff and physician. All members of the team are in agreement. 8:07:34 Right Radial site verified by team. 8:07:36 Physical assessment completed. ASA score P 2 - A patient with mild systemic disease as per Avni Trejo MD. 8:07:39 Sedation plan: IV Moderate Sedation Medication:Versed, Fentanyl 8:07:44 Use device set Radial Dx or PCI 8:07:45 ACIST Syringe (84692) opened to sterile field. 8:07:45 Medline Cath Pack ([id number]) opened to sterile field. 8:07:46 Bag Decanter (2002S) opened to sterile field. 8:07:46 SHEATH 6FR Slender ([id number]) opened to sterile field. 8:07:47 DIAGNOSTIC WIRE .035 260cm J wire (994475) opened to sterile field. 8:07:47 ACIST Hand Control (99997) opened to sterile field. 8:07:48 ACIST Manifold (14082) opened to sterile field. 8:07:48 Tegaderm 4 x 4 (1626W) opened to sterile field. 8:07:49 MBrace Wrist Support ([id number]) opened to sterile field. 8:07:50 NEEDLE Cook 21G 4cm Radial (C21670) opened to sterile field. 8:07:52 Versed 1 mg I.V. was administered by Jaylen Jauregui RN; for sedation; 8:07:57 Fentanyl 50 mcg I.V. was administered by Jaylen Jauregui RN; for sedation; 8:10:46 Zero performed for pressure channel P1 8:13:27 Procedure started. 8:13:32 Local anesthetic to right radial artery with Lidocaine 2% by Avni Trejo MD.INITIAL ACCESS ONLY 8:15:02 Versed 1 mg I.V. was administered by Jaylen Jauregui RN; for sedation; 8:15:05 A 6 Fr Short sheath was inserted into the Right Radial artery 8:15:06 Fentanyl 50 mcg I.V. was administered by Jaylen Jauregui RN; for sedation; 8:16:08 Radial Cocktail (Verapomil 2mg/Nitro 400mcg/Heparin 1500units) 1 syringe I.A. was administered by Avni Trejo MD; for vasodilation; 8:16:10 A DIAGNOSTIC David 110cm 5Fr catheter (986225) was advanced over the wire and used for LV Angiography. 8:16:25 Baseline sample Acquired. 8:16:39 Zero performed for pressure channel P1 8:17:36 LV gram done using DIAZ 8:17:45 Injector settings: Ml/sec: 5, Volume: 15, 8:17:46 LV hemodynamics recorded. 8:17:52 EF : 50 % 8:19:59 A DIAGNOSTIC David 110cm 5Fr catheter ([id number]) was advanced over the wire and used for Left Coronary Angiography. 8:21:01 A DIAGNOSTIC David 110cm 5Fr catheter (960347) was advanced over the wire and used for Right Coronary Angiography. 8:26:38 Catheter removed. 8:26:54 Sheath removed intact; hemostasis achieved with Mechanical Compression to the Right Radial artery. 8:26:57 Procedure ended.(Physican Out) 8:27:33 Fluoroscopy time 03.10 minutes. 8:27:36 Flurop Dose total: 831 8:27:36 Fluoroscopy dose: 831 mGy 8:27:46 Contrast amount:Isovue 300 60ml. 8:27:47 Sharps counted by scrub and verified by R.N. 8:27:49 TR band inflated with 7cc of air. 8:27:50 Insertion/operative site no bleeding no hematoma. 8:27:57 Post right radial artery:stable, clean and dry 8:28:02 Post Procedure Pulses reassessed and unchanged 8:28:07 Post-procedure physical assessment completed. ASA score P 2 - A patient with mild systemic disease as per Avni Trejo MD. 8:28:09 Post procedure rhythm: unchanged. 8:28:13 Estimated blood loss: 5 ml 8:28:15 Post procedure instruction explained to patient.Patient verbalizes understanding. 8:28:16 Patient needs reinforcement of post procedure teaching. 8:29:24 Procedure type changed to Cath procedure, Diagnostic procedure, LHC, LHC w/Coronaries, Miscellaneous Procedures, Moderate Sedation up to 15 minutes 8:29:29 Procedure Complication : No complications 8:29:32 See physician's report for complete and final results. 8:29:37 Report given to PCU. 8:29:51 TR BAND Large ([id number]) opened to sterile field. 8:30:25 Procedure and supply charges have been captured, reviewed, submitted and are correct. 8:31:27 Vital chart was stopped 8:31:31 Patient transfered to PCU with Bed. 8:31:43 Procedure ended. 8:31:43 Full Disclosure recording stopped 8:31:50 End room use (Document Last) Device Usage Item Name Manufacture Quantity Catalog Hospital Part Current Minima l Lot# / Number Charge Number Stock Stock Serial# Code ACIST Acist 1 57324 867998 230686 816839 20 Syringe Medical (98572) Systems Inc Medline Cath Cardinal 1 [id number] 483665 97518 058598 5 Pack Half Off Depot ([id number]) Bag Decanter Microtek 1 2001S 440465 95317 762469 5 (2001S) Medical Inc. SHEATH 6FR Terumo 1 [id number] 577175 552195 854922 40 Slender ([id number]) DIAGNOSTIC St Stefano 1 809932 666685 547529 550934 30 WIRE .035 260cm J wire (467477) ACIST Hand Acist 1 02438 625806 141091 321761 5 Control Medical (33873) Systems Inc ACIST Acist 1 63313 678301 303022 528485 5 Manifold Medical (10639) Systems Inc Tegaderm 4 x 3M 1 1626W 388650 238833 935051 5 4 (1626W) MBrace Wrist Advanced 1 140-0250-00 863023 72676 274836 5 Support Vascular ([id number]) Dynamics NEEDLE Cook Caro Nut Medical 1 V74544 220494 385970 288076 5 21G 4cm Radial (M20224) DIAGNOSTIC Terumo 1 405023 285643 568060 925084 5 David 110cm 5Fr catheter (975057) TR BAND Terumo 1 ODE17-LST 077267 371124 422341 40 Large ([id number]) Signature Audit [place] Stage Time Signature Unsigned Intra-Procedure 05/31/2017 Kathie 8:32:00 AM Counts RT(R) Signatures Monitor : Kathie Signature : Counts RT Date : Time : [address] [place] [address]
[2017-05-28 17:58] LABS: BASOPHILS 0.4 % (0-2); EOSINOPHILS 4.9 % (0-7); HEMOGLOBIN 11.5 g/dL (13.5-17.5); IMMATURE GRANULOCYTES 0.4 % (0-5); LYMPHOCYTES 30.7 % (15-50); MCH 25.7 pg (26.0-34.0); MCHC 31.1 g/dL (31.0-37.0); MCV 82.8 fL (80.0-100.0); MEAN PLATELET VOLUME 9.5 fL (7.4-10.4); MONOCYTES 9.5 % (2-11); NEUTROPHILS 54.1 % (40-80); PLATELET COUNT 181 10x3/uL (130-400); RBC 4.47 10x6/uL (4.20-6.10); RDW 14.3 % (11.5-14.5)
[2017-05-28 18:21] LABS: APTT 33.2 SECONDS (22.8-39.4); INR 1.83 (0.85-1.17); PROTIME 20.6 SECONDS (11.6-15.0)
[2017-05-28 18:22] LABS: D-DIMER-QUANTITATIVE 1.28 ug/mLFEU (0.20-0.54)
[2017-05-28 18:36] LABS: ALKALINE PHOSPHATASE 100 U/L (46-116); ALT (SGPT) 15 U/L (10-68); CHLORIDE - SERUM 102 mmol/L (98-107); CHOL - HDL RATIO 4.9 ratio (2.3-4.9); CHOLESTEROL, TOTAL 175 mg/dL (0-200); CKMB 0.5 U/L (0.0-3.6); CREATINE KINASE 53 UL (21-232); HDL CHOLESTEROL 36 mg/dL (32-96); LDL CHOLESTEROL 76 mg/dL (0-100); LDL-HDL RATIO 2.1 ratio (1.5-3.5); POTASSIUM - SERUM 3.7 mmol/L (3.5-5.1); TRIGLYCERIDE 319 mg/dL (30-200); UREA NITROGEN 15 mg/dL (7-18)
[2017-05-28 18:56] LABS: ALBUMIN 3.7 g/dL (3.4-5.0); BILIRUBIN - TOTAL 0.32 mg/dL (0.2-1.3); CALC OSMOLALITY 283 mosm/kg (275-300); CALCIUM 8.5 mg/dL (8.5-10.1); CREATININE - SERUM 0.9 mg/dL (0.6-1.3); GLUCOSE 107 mg/dL (74-106); PROTEIN - SERUM 7.4 g/dL (6.4-8.2); SODIUM 142 mmol/L (136-145); eGFR NON AFRICAN AMERICAN 89 mL/min (90-120)
[2017-05-28 18:57] LABS: TROPONIN-I < 0.017 ng/mL (0.000-0.060)
[2017-05-28 19:55] LABS: APPEARANCE CLEAR (CLEAR); BILIRUBIN NEGATIVE (NEGATIVE); COLOR YELLOW (YELLOW); GLUCOSE NEGATIVE (NEGATIVE); KETONE NEGATIVE (NEGATIVE); NITRITE NEGATIVE (NEGATIVE); PROTEIN NEGATIVE (NEGATIVE); UROBILINOGEN NORMAL (NORMAL)
[2017-05-29 05:39] VITALS: BP 174/77; Ht 177.8 cm; Wt 136.4 kg
[2017-05-29 08:34] LABS: BASOPHILS 0.4 % (0-2); EOSINOPHILS 6.2 % (0-7); HEMATOCRIT 36.6 % (42.0-54.0); HEMOGLOBIN 11.4 g/dL (13.5-17.5); IMMATURE GRANULOCYTES 0.2 % (0-5); LYMPHOCYTES 38.1 % (15-50); MCH 25.6 pg (26.0-34.0); MCHC 31.1 g/dL (31.0-37.0); MCV 82.1 fL (80.0-100.0); MEAN PLATELET VOLUME 8.9 fL (7.4-10.4); MONOCYTES 8.9 % (2-11); NEUTROPHILS 46.2 % (40-80); PLATELET COUNT 153 10x3/uL (130-400); RBC 4.46 10x6/uL (4.20-6.10); RDW 14.3 % (11.5-14.5); WBC 5.6 10x3/uL (4.8-10.8)
[2017-05-29 08:42] LABS: CALC OSMOLALITY 280 mosm/kg (275-300); CALCIUM 8.5 mg/dL (8.5-10.1); CARBON DIOXIDE 29.4 mmol/L (21.0-32.0); CHLORIDE - SERUM 103 mmol/L (98-107); CREATININE - SERUM 0.9 mg/dL (0.6-1.3); GLUCOSE 84 mg/dL (74-106); SODIUM 141 mmol/L (136-145); UREA NITROGEN 14 mg/dL (7-18); eGFR NON AFRICAN AMERICAN 89 mL/min (90-120)
[2017-05-29 09:50] VITALS: BP 142/53
[2017-05-29 12:15] VITALS: BP 166/72
[2017-05-29 15:58] VITALS: BP 149/72
[2017-05-29 20:40] VITALS: BP 153/64
[2017-05-30 00:15] VITALS: BP 178/82
[2017-05-30 05:09] VITALS: BP 139/65
[2017-05-30 07:41] VITALS: BP 146/69
[2017-05-30 08:03] LABS: APTT 29.9 SECONDS (22.8-39.4)
[2017-05-30 08:09] LABS: INR 1.27 (0.85-1.17); PROTIME 15.4 SECONDS (11.6-15.0)
[2017-05-30 11:37] VITALS: BP 149/70
[2017-05-30 15:49] VITALS: BP 145/61
[2017-05-30 20:58] VITALS: BP 129/67
[2017-05-31 01:12] VITALS: BP 163/65
[2017-05-31 05:58] VITALS: BP 136/72
[2017-05-31 08:01] VITALS: BP 133/63
== END 2017-05-31 14:08 | disposition home or self-care (01) | DRG 287 ==
LOC: D.ER 16:49 → OBSVTIME 23:21 → D.EDHOLD 23:21 → D.M2 05-29 01:43
PROVIDERS: Family Medicine; Internal Medicine Cardiovascular Disease
PROC: 4A023N7 Measurement of Cardiac Sampling and Pressure, Left Heart, Percutaneous Approach (ICD-10-PCS; 2017-05-31)
PROC: B2151ZZ Fluoroscopy of Left Heart using Low Osmolar Contrast (ICD-10-PCS; principal; 2017-05-31 08:00)
DX: I25.110 Atherosclerotic heart disease of native coronary artery with unstable angina pectoris (principal); I82.509 Chronic embolism and thrombosis of unspecified deep veins of unspecified lower extremity; I48.0 Paroxysmal atrial fibrillation; Z79.01 Long term (current) use of anticoagulants

== ENCOUNTER 2018-02-03 15:25 | Inpatient (IN) | payer MEDICARE, OTHER ==
[~2018-02-03] VITALS: Ht 177.8 cm; Wt 142.9 kg
--- NOTE | ~2018-02-03 | MORECARE ---
CASE MANAGEMENT DISCHARGE SUMMARY PATIENT: DAVON MONGE UNIT: [id number] ADM DATE: 02/03/18 AGE: 72 : [birth year] SEX: M ROOM/BED: D.2215 AUTHOR: KAUSHALDOC PHYSICIAN: REFERRING PHYSICIAN: CHAPITO FRENCH MD DATE OF SERVICE: 02/08/18 Discharge Plan Patient Name: DAVON MONGE Facility: [facility]:[place] : 1945 Planned Disposition: Home Anticipated Discharge Date: Discharge Date: Expected LOS: Initial Reviewer: [email or web address] Initial Review Date: 02/03/2018 Generated: 02/08/18 2:04 pm Comments DCP- Discharge Planning Updated by [email or web address]: Zelda Villarreal on 02/08/18 11:[address] Patient Name: DAVON MONGE Encounter No: [id number] : 1945 Primary Insurance: MEDICARE A & B Anticipated DC Date: Planned Disposition: Home External Planned Provider: : DCP follow-up note: Patient and family in agreement with discharge plan. IMM SERVED AND EXPLAINED No changes to plan. Case management will follow and assist as needed. Zelda Villarreal DCP- Discharge Planning Updated by [email or web address]: Zelda Villarreal on 02/07/18 12:[address] Patient Name: DAVON MONGE Admission Status: ER Accout number: [id number] Admission Date: 02-03-2018 : 1945 Admission Diagnosis: Attending: CHAPITO FRENCH Current LOS: 4 Anticipated DC Date: Planned Disposition: Home Primary Insurance: MEDICARE A & B Discharge Planning Comments: CM MET WITH PATIENT TO ASSESS DISCHARGE PLANNING NEEDS. PATIENT STATED THAT HE LIVES IN [place] INDEPENDENTLY WITH HIS AND PLANS TO RETURN THERE AT DISCHARGE. HE HAS A CANE, WALKER, CPAP, AND SHOWER CHAIR AT HOME. HE DENIES ANY HOME HEALTH OR COMMUNITY RESOURCES. HEATHER WILL BE THE ONE TO DRIVE HIM HOME. CM WILL CONTINUE TO FOLLOW AND ASSIST WITH DC PLANNING NEEDED Oil Burner Servicer And Installer: Zelda Villarreal DCPIA - Discharge Planning Initial Assessment Updated by [email or web address]: Zelda Villarreal on 02/07/18 1:33 pm * Is the patient Alert and Oriented? Yes * How many steps to enter\exit or inside your home? * PCP MICHAEL * Pharmacy [facility] * Preadmission Environment Home with Family * ADLs Independent * Equipment Cane CPAP Rolling Walker Shower Chair * List name and contact numbers for known caregivers / representatives who currently or will assist patient after discharge: HEATHER () [phone] * Verbal permission to speak to the caregivers and representatives has been obtained from the patient. N/A * Community resources currently utilized None * Additional services required to return to the preadmission environment? No * Can the patient safely return to the preadmission environment? Yes * Has this patient been hospitalized within the prior 30 days at any hospital? No Coverage Notice Reviewer: [email or web address] Isha Villarreal Notice Issued Date-Time: 02/08/2018 12:58 Notice Type: IM Discharge Notice Notice Delivered To: Patient Relationship to Patient: Billing Control Clerk Name: Delivery Method: HAND - Hand Delivered Jessica Days: Prior Verbal Notification: Recipient Understood Notice: Yes Recipient Signature: Yes Med Rec Note Co-signed by Attending: Coverage Notice Comment: Last DP export: 02/07/18 12:41 Patient Name: DAVON MONGE Page 69896 at 1304 All edits/amendments must be made on the electronic document DICTATION DATE: 02/08/18 1304 SCRIPT WORKER: CECILIA 02/08/18 1304 RPT#: [id number] DC DATE: STATUS: ADM IN [facility] [address] [place] [address] END OF REPORT
--- NOTE | ~2018-02-03 | MORECARE ---
CASE MANAGEMENT DISCHARGE SUMMARY PATIENT: DAVON MONGE UNIT: [id number] ADM DATE: 02/03/18 AGE: 72 : [birth year] SEX: M ROOM/BED: D.2215 AUTHOR: KAUSHALDOC PHYSICIAN: REFERRING PHYSICIAN: CHAPITO FRENCH MD DATE OF SERVICE: 02/07/18 Discharge Plan Patient Name: DAVON MONGE Facility: [facility]:[place] : 1945 Planned Disposition: Home Anticipated Discharge Date: Discharge Date: Expected LOS: Initial Reviewer: [email or web address] Initial Review Date: 02/03/2018 Generated: 02/07/18 2:40 pm Comments DCP- Discharge Planning Updated by [email or web address]: Zelda Villarreal on 02/07/18 12:[address] Patient Name: DAVON MONGE Admission Status: ER Accout number: [id number] Admission Date: 02-03-2018 : 1945 Admission Diagnosis: Attending: CHAPITO FRENCH Current LOS: 4 Anticipated DC Date: Planned Disposition: Home Primary Insurance: MEDICARE A & B Discharge Planning Comments: CM MET WITH PATIENT TO ASSESS DISCHARGE PLANNING NEEDS. PATIENT STATED THAT HE LIVES IN [place] INDEPENDENTLY WITH HIS AND PLANS TO RETURN THERE AT DISCHARGE. HE HAS A CANE, WALKER, CPAP, AND SHOWER CHAIR AT HOME. HE DENIES ANY HOME HEALTH OR COMMUNITY RESOURCES. HEATHER WILL BE THE ONE TO DRIVE HIM HOME. CM WILL CONTINUE TO FOLLOW AND ASSIST WITH DC PLANNING NEEDED Wardrobe Stylist: Zelda Villarreal DCPIA - Discharge Planning Initial Assessment Updated by [email or web address]: Zelda Villarreal on 02/07/18 1:33 pm * Is the patient Alert and Oriented? Yes * How many steps to enter\exit or inside your home? * PCP MICHAEL * Pharmacy [facility] * Preadmission Environment Home with Family * ADLs Independent * Equipment Cane CPAP Rolling Walker Shower Chair * List name and contact numbers for known caregivers / representatives who currently or will assist patient after discharge: HEATHER () [phone] * Verbal permission to speak to the caregivers and representatives has been obtained from the patient. N/A * Community resources currently utilized None * Additional services required to return to the preadmission environment? No * Can the patient safely return to the preadmission environment? Yes * Has this patient been hospitalized within the prior 30 days at any hospital? No Patient Name: DAVON MONGE Page 38213 at 1341 All edits/amendments must be made on the electronic document DICTATION DATE: 02/07/18 1340 DISCOTHEQUE DANCER: CECILIA 02/07/18 1340 RPT#: [id number] DC DATE: STATUS: ADM IN [facility] [address] [place] [address] END OF REPORT
--- NOTE | ~2018-02-03 | MORECARE ---
CASE MANAGEMENT DISCHARGE SUMMARY PATIENT: DAVON MONGE UNIT: [id number] ADM DATE: 02/03/18 AGE: 72 : [birth year] SEX: M ROOM/BED: D.2215 AUTHOR: EMMA EASLEY PHYSICIAN: REFERRING PHYSICIAN: CHAPITO FRENCH MD DATE OF SERVICE: 02/11/18 Discharge Plan Patient Name: DAVON MONGE Facility: [facility]:[place] : 1945 Planned Disposition: Home Anticipated Discharge Date: Discharge Date: 02/08/2018 Expected LOS: 0 Initial Reviewer: [email or web address] Initial Review Date: 02/03/2018 Generated: 02/11/18 12:17 pm Comments DCP- Discharge Planning Updated by [email or web address]: Zelda Villarreal on 02/08/18 11:[address] Patient Name: DAVON MONGE Encounter No: [id number] : 1945 Primary Insurance: MEDICARE A & B Anticipated DC Date: Planned Disposition: Home External Planned Provider: : DCP follow-up note: Patient and family in agreement with discharge plan. IMM SERVED AND EXPLAINED No changes to plan. Case management will follow and assist as needed. Zelda Villarreal DCP- Discharge Planning Updated by [email or web address]: Zelda Villarreal on 02/07/18 12:[address] Patient Name: DAVON MONGE Admission Status: ER Accout number: [id number] Admission Date: 02-03-2018 : 1945 Admission Diagnosis: Attending: CHAPITO FRENCH Current LOS: 4 Anticipated DC Date: Planned Disposition: Home Primary Insurance: MEDICARE A & B Discharge Planning Comments: CM MET WITH PATIENT TO ASSESS DISCHARGE PLANNING NEEDS. PATIENT STATED THAT HE LIVES IN [place] INDEPENDENTLY WITH HIS AND PLANS TO RETURN THERE AT DISCHARGE. HE HAS A CANE, WALKER, CPAP, AND SHOWER CHAIR AT HOME. HE DENIES ANY HOME HEALTH OR COMMUNITY RESOURCES. HEATHER WILL BE THE ONE TO DRIVE HIM HOME. CM WILL CONTINUE TO FOLLOW AND ASSIST WITH DC PLANNING NEEDED Primary Care Coordinator: Zelda Villarreal DCPIA - Discharge Planning Initial Assessment Updated by [email or web address]: Zelda Villarreal on 02/07/18 1:33 pm * Is the patient Alert and Oriented? Yes * How many steps to enter\exit or inside your home? * PCP MICHAEL * Pharmacy [facility] * Preadmission Environment Home with Family * ADLs Independent * Equipment Cane CPAP Rolling Walker Shower Chair * List name and contact numbers for known caregivers / representatives who currently or will assist patient after discharge: HEATHER () [phone] * Verbal permission to speak to the caregivers and representatives has been obtained from the patient. N/A * Community resources currently utilized None * Additional services required to return to the preadmission environment? No * Can the patient safely return to the preadmission environment? Yes * Has this patient been hospitalized within the prior 30 days at any hospital? No Coverage Notice Reviewer: [email or web address] Isha Villarreal Notice Issued Date-Time: 02/08/2018 12:58 Notice Type: IM Discharge Notice Notice Delivered To: Patient Relationship to Patient: Cold Meat Chef Name: Delivery Method: HAND - Hand Delivered Jessica Days: Prior Verbal Notification: Recipient Understood Notice: Yes Recipient Signature: Yes Med Rec Note Co-signed by Attending: Coverage Notice Comment: Last DP export: 02/08/18 12:04 Patient Name: DAVON MONGE Page 52477 at 1117 All edits/amendments must be made on the electronic document DICTATION DATE: 02/11/181116 SEED AND FERTILIZER SPECIALIST: CECILIA 02/11/181116 RPT#: [id number] DC DATE:02/08/18 STATUS: DIS IN [facility] [address] [place] [address] END OF REPORT
[2018-02-03] MEDS ORDERED: BAYER CHEWABLE81 MG PO (15:48)
[2018-02-03] MEDS ORDERED: CARBIDOPA-LEVO1 EAC2 PO (15:49)
[2018-02-03] MEDS ORDERED: CLEOCIN HCL300 MG PO (15:49)
[2018-02-03 16:33] LABS: BASOPHILS 0.1 % (0-2); EOSINOPHILS 0.3 % (0-7); HEMATOCRIT 40.7 % (42.0-54.0); HEMOGLOBIN 13.5 g/dL (13.5-17.5); IMMATURE GRANULOCYTES 0.6 % (0-5); LYMPHOCYTES 8.3 % (15-50); MCH 28.9 pg (26.0-34.0); MCHC 33.2 g/dL (31.0-37.0); MCV 87.2 fL (80.0-100.0); MONOCYTES 7.9 % (2-11); NEUTROPHILS 82.8 % (40-80); RBC 4.67 10x6/uL (4.20-6.10); WBC 16.2 10x3/uL (4.8-10.8)
[2018-02-03 16:34] LABS: PLATELET COUNT 184 10x3/uL (130-400)
[2018-02-03 16:47] LABS: ALBUMIN 3.7 g/dL (3.4-5.0); ALKALINE PHOSPHATASE 93 U/L (46-116); ALT (SGPT) 28 U/L (10-68); BILIRUBIN - TOTAL 0.79 mg/dL (0.2-1.3); CALC OSMOLALITY 277 mosm/kg (275-300); CALCIUM 8.9 mg/dL (8.5-10.1); CHLORIDE - SERUM 100 mmol/L (98-107); CREATININE - SERUM 0.9 mg/dL (0.6-1.3); GLUCOSE 115 mg/dL (74-106); POTASSIUM - SERUM 3.6 mmol/L (3.5-5.1); PROTEIN - SERUM 7.9 g/dL (6.4-8.2); SODIUM 139 mmol/L (136-145); UREA NITROGEN 10 mg/dL (7-18); eGFR NON AFRICAN AMERICAN 89 mL/min (90-120)
[2018-02-03 18:41] LABS: APPEARANCE CLEAR (CLEAR); COLOR YELLOW (YELLOW); SPECIFIC GRAVITY 1.015 (1.005-1.020)
[2018-02-03 18:42] LABS: BILIRUBIN NEGATIVE (NEGATIVE); GLUCOSE NEGATIVE (NEGATIVE); KETONE NEGATIVE (NEGATIVE); NITRITE NEGATIVE (NEGATIVE); PROTEIN NEGATIVE (NEGATIVE); UROBILINOGEN NORMAL (NORMAL)
[2018-02-03 21:05] VITALS: BP 105/57
[2018-02-03 22:43] VITALS: BP 105/57
[2018-02-04 04:35] VITALS: BP 141/70
[2018-02-04 08:54] VITALS: BP 169/80
[2018-02-04 10:00] LABS: CALC OSMOLALITY 275 mosm/kg (275-300); CALCIUM 8.5 mg/dL (8.5-10.1); CHLORIDE - SERUM 101 mmol/L (98-107); CREATININE - SERUM 0.8 mg/dL (0.6-1.3); POTASSIUM - SERUM 3.9 mmol/L (3.5-5.1); SODIUM 137 mmol/L (136-145); UREA NITROGEN 8 mg/dL (7-18); eGFR NON AFRICAN AMERICAN > 90 mL/min (90-120)
[2018-02-04 10:02] LABS: GLUCOSE 178 mg/dL (74-106)
[2018-02-04 10:20] LABS: HEMATOCRIT 37.2 % (42.0-54.0); HEMOGLOBIN 12.2 g/dL (13.5-17.5); LYMPHOCYTES 6.1 % (15-50); MCH 28.1 pg (26.0-34.0); MCHC 32.8 g/dL (31.0-37.0); MCV 85.7 fL (80.0-100.0); MEAN PLATELET VOLUME 8.8 fL (7.4-10.4); NEUTROPHILS 86.2 % (40-80); PLATELET COUNT 170 10x3/uL (130-400); RBC 4.34 10x6/uL (4.20-6.10); RDW 12.9 % (11.5-14.5); WBC 15.7 10x3/uL (4.8-10.8)
[2018-02-04 12:37] VITALS: BP 198/99
[2018-02-04 13:03] VITALS: BMI 45.1
[2018-02-04 17:22] VITALS: BP 166/64
[2018-02-04 20:00] VITALS: BP 147/72
[2018-02-05 04:00] VITALS: BP 151/78
[2018-02-05 05:40] LABS: BASOPHILS 0.1 % (0-2); EOSINOPHILS 0.5 % (0-7); HEMATOCRIT 36.5 % (42.0-54.0); HEMOGLOBIN 11.7 g/dL (13.5-17.5); IMMATURE GRANULOCYTES 0.8 % (0-5); MCH 28.2 pg (26.0-34.0); MCHC 32.1 g/dL (31.0-37.0); MEAN PLATELET VOLUME 9.9 fL (7.4-10.4); MONOCYTES 9.2 % (2-11); NEUTROPHILS 77.4 % (40-80); PLATELET COUNT 175 10x3/uL (130-400); RBC 4.15 10x6/uL (4.20-6.10); RDW 13.8 % (11.5-14.5); WBC 13.1 10x3/uL (4.8-10.8)
[2018-02-05 06:10] LABS: CALC OSMOLALITY 278 mosm/kg (275-300); CALCIUM 8.5 mg/dL (8.5-10.1); CARBON DIOXIDE 31.6 mmol/L (21.0-32.0); CHLORIDE - SERUM 102 mmol/L (98-107); CREATININE - SERUM 0.9 mg/dL (0.6-1.3); POTASSIUM - SERUM 3.7 mmol/L (3.5-5.1); SODIUM 139 mmol/L (136-145); UREA NITROGEN 9 mg/dL (7-18); eGFR NON AFRICAN AMERICAN 89 mL/min (90-120)
[2018-02-05 06:19] LABS: GLUCOSE 128 mg/dL (74-106)
[2018-02-05 10:03] VITALS: BP 165/73
[2018-02-05 12:53] VITALS: BP 135/60
[2018-02-05 17:17] VITALS: BP 117/87
[2018-02-06 05:16] VITALS: BP 185/87
[2018-02-06 06:08] LABS: BASOPHILS 0.1 % (0-2); EOSINOPHILS 1.1 % (0-7); HEMATOCRIT 36.2 % (42.0-54.0); HEMOGLOBIN 11.8 g/dL (13.5-17.5); IMMATURE GRANULOCYTES 1.2 % (0-5); LYMPHOCYTES 13.3 % (15-50); MCH 28.4 pg (26.0-34.0); MCHC 32.6 g/dL (31.0-37.0); MCV 87.2 fL (80.0-100.0); MEAN PLATELET VOLUME 9.6 fL (7.4-10.4); MONOCYTES 9.2 % (2-11); NEUTROPHILS 75.1 % (40-80); RBC 4.15 10x6/uL (4.20-6.10); RDW 13.6 % (11.5-14.5); WBC 11.9 10x3/uL (4.8-10.8)
[2018-02-06 06:14] LABS: PLATELET COUNT 215 10x3/uL (130-400)
[2018-02-06 06:26] LABS: CALC OSMOLALITY 271 mosm/kg (275-300); CARBON DIOXIDE 30.4 mmol/L (21.0-32.0); CHLORIDE - SERUM 100 mmol/L (98-107); CREATININE - SERUM 0.8 mg/dL (0.6-1.3); GLUCOSE 136 mg/dL (74-106); SODIUM 136 mmol/L (136-145); UREA NITROGEN 8 mg/dL (7-18); eGFR NON AFRICAN AMERICAN > 90 mL/min (90-120)
[2018-02-06 09:38] VITALS: BP 144/67
[2018-02-06 13:20] VITALS: BP 123/75
[2018-02-06 17:39] VITALS: BP 179/74
[2018-02-06 20:00] VITALS: BP 127/73
[2018-02-07] VITALS: BP 126/66
[2018-02-07 04:00] VITALS: BP 158/74
[2018-02-07 05:49] LABS: BASOPHILS 0.4 % (0-2); EOSINOPHILS 1.6 % (0-7); HEMATOCRIT 35.2 % (42.0-54.0); HEMOGLOBIN 11.4 g/dL (13.5-17.5); IMMATURE GRANULOCYTES 1.3 % (0-5); LYMPHOCYTES 14.5 % (15-50); MCH 28.1 pg (26.0-34.0); MCHC 32.4 g/dL (31.0-37.0); MCV 86.7 fL (80.0-100.0); MEAN PLATELET VOLUME 9.6 fL (7.4-10.4); MONOCYTES 12.4 % (2-11); NEUTROPHILS 69.8 % (40-80); PLATELET COUNT 238 10x3/uL (130-400); RBC 4.06 10x6/uL (4.20-6.10); RDW 13.5 % (11.5-14.5); WBC 10.3 10x3/uL (4.8-10.8)
[2018-02-07 06:08] LABS: CALC OSMOLALITY 274 mosm/kg (275-300); CALCIUM 8.6 mg/dL (8.5-10.1); CARBON DIOXIDE 30.4 mmol/L (21.0-32.0); CHLORIDE - SERUM 99 mmol/L (98-107); CREATININE - SERUM 0.8 mg/dL (0.6-1.3); GLUCOSE 146 mg/dL (74-106); POTASSIUM - SERUM 3.8 mmol/L (3.5-5.1); SODIUM 137 mmol/L (136-145); UREA NITROGEN 8 mg/dL (7-18); eGFR NON AFRICAN AMERICAN > 90 mL/min (90-120)
[2018-02-07 08:50] VITALS: BP 137/60
[2018-02-07 12:00] VITALS: BP 149/63
[2018-02-07 16:17] VITALS: BP 132/68
[2018-02-07 21:47] VITALS: BP 169/76
[2018-02-08 05:43] VITALS: BP 135/68
[2018-02-08 06:03] LABS: BASOPHILS 0.3 % (0-2); EOSINOPHILS 2.4 % (0-7); HEMATOCRIT 36.1 % (42.0-54.0); HEMOGLOBIN 11.8 g/dL (13.5-17.5); IMMATURE GRANULOCYTES 1.5 % (0-5); LYMPHOCYTES 16.9 % (15-50); MCH 28.3 pg (26.0-34.0); MCHC 32.7 g/dL (31.0-37.0); MCV 86.6 fL (80.0-100.0); MEAN PLATELET VOLUME 9.4 fL (7.4-10.4); MONOCYTES 11.3 % (2-11); NEUTROPHILS 67.6 % (40-80); PLATELET COUNT 274 10x3/uL (130-400); RBC 4.17 10x6/uL (4.20-6.10); RDW 13.5 % (11.5-14.5); WBC 10.4 10x3/uL (4.8-10.8)
[2018-02-08 06:06] LABS: CALC OSMOLALITY 275 mosm/kg (275-300); CALCIUM 8.9 mg/dL (8.5-10.1); CARBON DIOXIDE 30.6 mmol/L (21.0-32.0); CHLORIDE - SERUM 99 mmol/L (98-107); CREATININE - SERUM 0.9 mg/dL (0.6-1.3); GLUCOSE 144 mg/dL (74-106); POTASSIUM - SERUM 3.7 mmol/L (3.5-5.1); SODIUM 137 mmol/L (136-145); eGFR NON AFRICAN AMERICAN 89 mL/min (90-120)
[2018-02-08 06:07] LABS: UREA NITROGEN 11 mg/dL (7-18)
[2018-02-08 09:57] VITALS: BP 150/65
[2018-02-08] MEDS ORDERED: BACTRIM DS1 TAB PO (12:20)
[2018-02-08 12:21] VITALS: Ht 177.8 cm; Wt 142.9 kg
[2018-02-08 13:58] VITALS: BP 164/64
== END 2018-02-08 17:51 | disposition home or self-care (01) | DRG 603 ==
LOC: D.ER 15:25 → D.EDHOLD 18:30 → D.MS 18:30
PROVIDERS: Emergency Medicine; Internal Medicine Nephrology
PROC: 05HC33Z Insertion of Infusion Device into Left Basilic Vein, Percutaneous Approach (ICD-10-PCS; principal; 2018-02-08)
PROC: B54NZZA Ultrasonography of Left Upper Extremity Veins, Guidance (ICD-10-PCS; 2018-02-08)
DX: L03.116 Cellulitis of left lower limb (principal); Z68.42 Body mass index [BMI] 45.0-49.9, adult; E66.9 Obesity, unspecified; I10 Essential (primary) hypertension; R51 Headache; G47.30 Sleep apnea, unspecified; I48.91 Unspecified atrial fibrillation; E03.9 Hypothyroidism, unspecified; K21.9 Gastro-esophageal reflux disease without esophagitis; I25.10 Atherosclerotic heart disease of native coronary artery without angina pectoris

== ENCOUNTER 2018-03-17 11:22 | Inpatient (IN) | payer MEDICARE, OTHER ==
[~2018-03-17] VITALS: Ht 180.3 cm; Wt 135.2 kg
--- NOTE | ~2018-03-17 | OP ---
PATIENT NAME: DAVON MONGE MEDICAL RECORD: [id number] :[birth year] LOCATION:D.MS [facility]2239 ADMISSION DATE:03/17/18 SURGEON: BRYAN THOMAS MD DATE OF OPERATION: 03/21/2018 PREOPERATIVE DIAGNOSIS: Infected left total knee arthroplasty revision. POSTOPERATIVE DIAGNOSIS: Infected left total knee arthroplasty revision. PROCEDURES: 1. Removal of infected left total knee arthroplasty. 2. Excisional debridement of all infected material to include skin; subcutaneous tissue; portions of fat, fascia, muscle, and bone; approximately 300 square centimeters in aggregate. 3. Placement of antibiotic cement spacer. SURGEON: Bryan Thomas MD LOSS MITIGATION SPECIALIST: ANSELMO Duron INTRAOPERATIVE COMPLICATIONS: None. SUMMARY OF PATHOLOGIC FINDINGS: Based on previous aspirate, the patient had grown out multiple organisms, likely coming from cellulitis of his lower extremity which he was hospitalized earlier in the year. Interestingly, he improved dramatically and then presented approximately 6 weeks later with acute pain and swelling in his knee. 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 OPERATIVE SUMMARY IN DETAIL: After obtaining the appropriate preoperative orthopedic surgery consent as well as anesthetic consultation, evaluation, and clearance, the patient was brought to the operating room and placed on the operating table in the supine position. After adequate general laryngeal mask airway was administered, tourniquet was placed about the proximal aspect of the left lower extremity. The left lower extremity was then prepped and draped in routine sterile fashion. The leg was elevated, exsanguinated, and tourniquet was inflated to 350 mmHg. Routine midline incision was taken over the previous incision and taken down for paramedian arthrotomy. Paramedian arthrotomy was performed and again cloudy synovial fluid was encountered. Careful dissection was carried out and releases were carried out for exposure of the proximal tibia. Proximal tibial polyethylene was then removed with little degree of difficulty. Attention was then turned to the proximal femur. Proximal femur was then slowly released using small flexible osteotomes and eventually the femur was removed with absolutely zero bone loss. The patient did have what appeared to be a glycocalyx slime layer into the intramedullary canal of the femur. At this point, copious irrigation as well as curettage was utilized to debride the slime layer as well as any membranous tissue and all cement tissue. Next, attention was turned to the tibia. Small saw was then used to gently break up the cement barrier. The tibia did not appear to be loose; however, upon removing the tibia, there did appear to be early slime layer into the canal. Curettage was then utilized here as well. After all foreign material was removed, attention was turned to the patella. The patella was then removed along with all the pegs as well as the previously placed blue bone cement. After all foreign material had been removed, pulsatile lavage irrigation was OPERATIVE REPORT [id number] DAVON MONGE carried out for a total of 12 liters. This was also coordinated with both curettage, rongeur, and scalpel removal of any nonviable or infectious-appearing tissue. Cement spacer was then mixed with 2 grams of vancomycin, and as it was allowed to harden in a doughy state, it was placed into the interspace. Care was taken to be sure that it did not adhere to bone but it was there to maintain the space. Having completed this, further irrigation was then followed by closure of the paramedian arthrotomy with #2 Ethibond followed by #1 Vicryl, 2-0 Vicryl, and skin angie. Please note the closure was achieved by Jake Mora first front ventilator. Sterile dressings were applied. The patient was placed in a knee immobilizer after the tourniquet was deflated. The patient was then awakened and taken to the recovery room in stable condition. All final needle and sponge counts were correct. TRANSINT:[id number] Voice Confirmation ID: [id number] DOCUMENT ID: [id number] WILLIAM FOOTE, BRYAN KERN at 1116 CC: [id number] DICTATION DATE: 03/24/18 0649 CINEMA OR THEATRE MANAGER: 03/24/18 1707 DIS IN 03/24/18 [facility] [address] [id number]
--- NOTE | ~2018-03-17 | MORECARE ---
CASE MANAGEMENT DISCHARGE SUMMARY PATIENT: DAVON MONGE UNIT: [id number] ADM DATE: 03/17/18 AGE: 72 : [birth year] SEX: M ROOM/BED: D.2239 AUTHOR: KAUSHAL,DOC PHYSICIAN: REFERRING PHYSICIAN: BRYAN THOMAS MD DATE OF SERVICE: 03/22/18 Discharge Plan Patient Name: DAVON MONGE Facility: [facility]:[place] : 1945 Planned Disposition: Home Anticipated Discharge Date: Discharge Date: Expected LOS: Initial Reviewer: [email or web address] Initial Review Date: 03/18/2018 Generated: 03/22/18 3:58 pm Comments DCP- Discharge Planning Updated by [email or web address]: Melanie Deleon on 03/22/18 1:[address] Christina called me and states they are not going to accept patient to inpatient rehab because of limited mobility at this time. I spoke to patient and and informed and they would like a referral to [facility]. I spoke with Qing at [facility] and clinical faxed. CM will continue to follow and assist with discharge planning/needs. DCP- Discharge Planning Updated by [email or web address]: Melanie Pancho on 03/22/18 10:[address] Met with patient and his concerning discharge planning. He would like to see if he can go to inpatient rehab here and if he does not qualify, would like to go to [facility] prior to going home. I spoke with Christina in rehab and sent referral order. CM will continue to follow and assist with discharge planning/needs. DCP- Discharge Planning Updated by [email or web address]: Melanie Pancho on 03/18/18 1:[address] Patient Name: DAVON MONGE Admission Status: Elective Accout number: [id number] Admission Date: 03-17-2018 : 1945 Admission Diagnosis: Attending: BRYAN THOMAS Current LOS: 1 Anticipated DC Date: Planned Disposition: Home Primary Insurance: MEDICARE A & B Discharge Planning Comments: CM met with patient to discuss discharge planning, he is alone in the room. States he lives with his . States he is independent with his care. States they do have a basement, but he can go outside and enter the basement without steps if needed. States he has all the DME needed at home. States he is unsure what his discharge plan is at this time. States "it depends on the cultures, guess I will find out Wednesday." I discussed the option of inpatient rehab, skilled facilities and home health services. He is unsure and would like me to come back Wednesday for the options when he knows if he will need surgery again. [facility] not [facility]. He does have Medicare A&B and for Life. CM will continue to follow and assist with discharge planning/needs. Geological Manager: Melanie Deleon DCPIA - Discharge Planning Initial Assessment Updated by [email or web address]: Melanie Deleon on 03/18/18 1:54 pm * Is the patient Alert and Oriented? Yes * How many steps to enter\\exit or inside your home? 3/0 * PCP Dr. Carvalho * Pharmacy [facility] pharmacy * Preadmission Environment Home with Family * ADLs Independent * Equipment Bedside Commode Cane CPAP Power Chair or Electric Scooter Rolling Walker Shower Chair Walker Wheelchair * List name and contact numbers for known caregivers / representatives who currently or will assist patient after discharge: Christina - - house phone [phone] Cell - [phone] * Verbal permission to speak to the caregivers and representatives has been obtained from the patient. Yes * Community resources currently utilized [facility] * Additional services required to return to the preadmission environment? Yes * Can the patient safely return to the preadmission environment? Yes * Has this patient been hospitalized within the prior 30 days at any hospital? No External Providers External Provider: [facility] Next Contact Date: Service Request Date: Service Type: Resolution: Reviewer: Comments: Last DP export: 03/22/18 10:06 Patient Name: DAVON MONGE Page [id number] at 4878 All edits/amendments must be made on the electronic document DICTATION DATE: 03/22/181456 SOLE EDGE INKER MACHINE: CECILIA 03/22/181456 RPT#: [id number] CO DATE: STATUS: ADM IN [facility] [address] [place] [address] END OF REPORT
--- NOTE | ~2018-03-17 | MORECARE ---
CASE MANAGEMENT DISCHARGE SUMMARY PATIENT: DAVON MONGE UNIT: [id number] ADM DATE: 03/17/18 AGE: 72 : [birth year] SEX: M ROOM/BED: D.2239 AUTHOR: KAUSHAL,DOC PHYSICIAN: REFERRING PHYSICIAN: BRYAN THOMAS MD DATE OF SERVICE: 03/24/18 Discharge Plan Patient Name: DAVON MONGE Facility: [facility]:[place] : 1945 Planned Disposition: Home Anticipated Discharge Date: Discharge Date: Expected LOS: Initial Reviewer: [email or web address] Initial Review Date: 03/18/2018 Generated: 03/24/18 12:38 pm Comments DCP- Discharge Planning Updated by [email or web address]: Melanie Deleon on 03/24/18 10:[address] [facility] states they will pick him up at 1300. I informed flower cheniller and primary nurse. CM will continue to follow and assist with discharge planning/needs. DCP- Discharge Planning Updated by [email or web address]: Melanie Pancho on 03/23/18 11:[address] Received a call from Qing at [facility] that states they cannot take him with Imitrex on his med list. Patient states he can do without it if necessary. He would like a private room, all of their rooms are semi-private. [facility], I have sent clinical to them and spoke with Kellie. I informed Qing that they are looking at going to [facility] at this time. DCP- Discharge Planning Updated by [email or web address]: Melanie Deleon on 03/22/18 1:[address] Christina called me and states they are not going to accept patient to inpatient rehab because of limited mobility at this time. I spoke to patient and and informed and they would like a referral to [facility]. I spoke with Qing at [facility] and clinical faxed. CM will continue to follow and assist with discharge planning/needs. DCP- Discharge Planning Updated by [email or web address]: Melanie Deleon on 03/22/18 10:[address] Met with patient and his concerning discharge planning. He would like to see if he can go to inpatient rehab here and if he does not qualify, would like to go to [facility] prior to going home. I spoke with Christina in rehab and sent referral order. CM will continue to follow and assist with discharge planning/needs. DCP- Discharge Planning Updated by [email or web address]: Melanie Deleon on 03/18/18 1:[address] Patient Name: DAVON MONGE Admission Status: Elective Accout number: [id number] Admission Date: 03-17-2018 : 1945 Admission Diagnosis: Attending: BRYAN THOMAS Current LOS: 1 Anticipated DC Date: Planned Disposition: Home Primary Insurance: MEDICARE A & B Discharge Planning Comments: CM met with patient to discuss discharge planning, he is alone in the room. States he lives with his . States he is independent with his care. States they do have a basement, but he can go outside and enter the basement without steps if needed. States he has all the DME needed at home. States he is unsure what his discharge plan is at this time. States "it depends on the cultures, guess I will find out Wednesday." I discussed the option of inpatient rehab, skilled facilities and home health services. He is unsure and would like me to come back Wednesday for the options when he knows if he will need surgery again. He does not [facility]. He does have Medicare A&B and for Life. CM will continue to follow and assist with discharge planning/needs. Field Crop I Farmworker: Melanie Deleon DCPIA - Discharge Planning Initial Assessment Updated by [email or web address]: Melanie Deleon on 03/18/18 1:54 pm * Is the patient Alert and Oriented? Yes * How many steps to enter\\exit or inside your home? 3/0 * PCP Dr. Carvalho * Pharmacy [facility] pharmacy * Preadmission Environment Home with Family * ADLs Independent * Equipment Bedside Commode Cane CPAP Power Chair or Electric Scooter Rolling Walker Shower Chair Walker Wheelchair * List name and contact numbers for known caregivers / representatives who currently or will assist patient after discharge: Christina - - house phone [phone] Cell - [phone] * Verbal permission to speak to the caregivers and representatives has been obtained from the patient. Yes * Community resources currently utilized [facility] * Additional services required to return to the preadmission environment? Yes * Can the patient safely return to the preadmission environment? Yes * Has this patient been hospitalized within the prior 30 days at any hospital? No Last DP export: 03/23/18 11:37 Patient Name: DAVON MONGE Page [id number] at 1138 All edits/amendments must be made on the electronic document DICTATION DATE: 03/24/181136 BLOOD TYPER: CECILIA 03/24/181136 RPT#: [id number] DC DATE: STATUS: ADM IN [facility] [address] [place] [address] END OF REPORT
--- NOTE | ~2018-03-17 | OP ---
PATIENT NAME: DAVON MONGE MEDICAL RECORD: [id number] :[birth year] LOCATION:D.MS [facility]2239 ADMISSION DATE:03/17/18 SURGEON: BRYAN THOMAS MD DATE OF OPERATION: 03/17/2018 PREOPERATIVE DIAGNOSIS: Possibly infected left total knee arthroplasty. POSTOPERATIVE DIAGNOSIS: Possibly infected left total knee arthroplasty. PROCEDURE: 1. Aspiration of left total knee under anesthesia. 2. Attempted aspiration of the prepatellar bursa. SURGEON: Bryan Thomas MD ANESTHESIA: Laryngeal mask airway. INTRAOPERATIVE COMPLICATIONS: None. SUMMARY OF PATHOLOGIC FINDINGS: Aspiration of the knee itself liberated approximately 60 cc of turbid-appearing synovial fluid. However, attempts at aspiration of the prepatellar bursa were completely unsuccessful at any fluid whatsoever concerning for total knee arthroplasty infection. OPERATIVE SUMMARY IN DETAIL: After obtaining the appropriate preoperative orthopedic surgery consent as well as anesthetic consultation, evaluation, and clearance the patient was brought to the operating room and placed on the operating table in supine position. After adequate general laryngeal mask airway was administered, the patient's left lower extremity was prepared with a tourniquet and was prepped and draped in routine sterile fashion. Please note tourniquet was not deployed at this time. An 18-gauge spinal needle was then initially placed into the knee joint in a lateral subpatellar fashion. Aspiration of approximately 15 cc was then sent for synovial fluid analysis. Next, after a second prep, a second spinal needle and syringe set up was utilized to attempt aspiration of the suprapatellar bursa with no results. Bandages were applied. The patient was awakened and was taken to recovery room in stable condition. He will be placed in the hospital for IV antibiotics, pending the outcomes of the synovial fluid analysis and culture results. TRANSINT:[id number] Voice Confirmation ID: [id number] DOCUMENT ID: [id number] BRYAN THOMAS MD at 1130 CC: [id number] DICTATION DATE: 03/17/18 1728 PROPOSAL LEAD WRITER: 03/18/18 0034 ADM IN [place] [place] [address]
--- NOTE | ~2018-03-17 | MORECARE ---
CASE MANAGEMENT DISCHARGE SUMMARY PATIENT: DAVON MONGE UNIT: [id number] ADM DATE: 03/17/18 AGE: 72 : [birth year] SEX: M ROOM/BED: D.2239 AUTHOR: EMMA EASLEY PHYSICIAN: REFERRING PHYSICIAN: BRYAN THOMAS MD DATE OF SERVICE: 03/18/18 Discharge Plan Patient Name: DAVON MONGE Facility: [facility]:[place] : 1945 Planned Disposition: Home Anticipated Discharge Date: Discharge Date: Expected LOS: Initial Reviewer: [email or web address] Initial Review Date: 03/18/2018 Generated: 03/18/18 3:14 pm Comments DCP- Discharge Planning Updated by [email or web address]: Melanie Deleon on 03/18/18 1:[address] Patient Name: DAVON MONGE Admission Status: Elective Accout number: [id number] Admission Date: 03-17-2018 : 1945 Admission Diagnosis: Attending: BRYAN THOMAS Current LOS: 1 Anticipated DC Date: Planned Disposition: Home Primary Insurance: MEDICARE A & B Discharge Planning Comments: CM met with patient to discuss discharge planning, he is alone in the room. States he lives with his . States he is independent with his care. States they do have a basement, but he can go outside and enter the basement without steps if needed. States he has all the DME needed at home. States he is unsure what his discharge plan is at this time. States "it depends on the cultures, guess I will find out Wednesday." I discussed the option of inpatient rehab, skilled facilities and home health services. He is unsure and would like me to come back Wednesday for the options when he knows if he will need surgery again. He does not want to [facility] the [facility]. He does have Medicare A&B and for Life. CM will continue to follow and assist with discharge planning/needs. Acetylene Torch Solderer: Melanie Deleon DCPIA - Discharge Planning Initial Assessment Updated by [email or web address]: Melanie Deleon on 03/18/18 1:54 pm * Is the patient Alert and Oriented? Yes * How many steps to enter\\exit or inside your home? 3/0 * PCP Dr. Carvalho * Pharmacy [facility] pharmacy * Preadmission Environment Home with Family * ADLs Independent * Equipment Bedside Commode Cane CPAP Power Chair or Electric Scooter Rolling Walker Shower Chair Walker Wheelchair * List name and contact numbers for known caregivers / representatives who currently or will assist patient after discharge: Christina cobb phone [phone] Cell - [phone] * Verbal permission to speak to the caregivers and representatives has been obtained from the patient. Yes * Community resources currently utilized [facility] * Additional services required to return to the preadmission environment? Yes * Can the patient safely return to the preadmission environment? Yes * Has this patient been hospitalized within the prior 30 days at any hospital? No Last DP export: 03/18/18 12:59 p Patient Name: DAVON MONGE Page 29165 at 1415 All edits/amendments must be made on the electronic document DICTATION DATE: 03/18/181413 COMMUNICATIONS WRITER: CECILIA 03/18/181413 RPT#: [id number] DC DATE: STATUS: ADM IN [facility] [address] [place] [address] END OF REPORT
--- NOTE | ~2018-03-17 | MORECARE ---
CASE MANAGEMENT DISCHARGE SUMMARY PATIENT: DAVON MONGE UNIT: [id number] ADM DATE: 03/17/18 AGE: 72 : [birth year] SEX: M ROOM/BED: D.2239 AUTHOR: KAUSHAL,DOC PHYSICIAN: REFERRING PHYSICIAN: BRYAN THOMAS MD DATE OF SERVICE: 03/23/18 Discharge Plan Patient Name: DAVON MONGE Facility: [facility]:[place] : 1945 Planned Disposition: Home Anticipated Discharge Date: Discharge Date: Expected LOS: Initial Reviewer: [email or web address] Initial Review Date: 03/18/2018 Generated: 03/23/18 1:25 pm Comments DCP- Discharge Planning Updated by [email or web address]: Melanie Deleon on 03/22/18 1:[address] Christina called me and states they are not going to accept patient to inpatient rehab because of limited mobility at this time. I spoke to patient and and informed and they would like a referral to [facility]. I spoke with Qing at [place] and clinical faxed. CM will continue to follow and assist with discharge planning/needs. DCP- Discharge Planning Updated by [email or web address]: Melanie Pancho on 03/22/18 10:[address] Met with patient and his concerning discharge planning. He would like to see if he can go to inpatient rehab here and if he does not qualify, would like to go to [facility] prior to going home. I spoke with Christina in rehab and sent referral order. CM will continue to follow and assist with discharge planning/needs. DCP- Discharge Planning Updated by [email or web address]: Melanie Deleon on 03/18/18 1:[address] Patient Name: DAVON MONGE Admission Status: Elective Accout number: [id number] Admission Date: 03-17-2018 : 1945 Admission Diagnosis: Attending: BRYAN THOMAS Current LOS: 1 Anticipated DC Date: Planned Disposition: Home Primary Insurance: MEDICARE A & B Discharge Planning Comments: CM met with patient to discuss discharge planning, he is alone in the room. States he lives with his . States he is independent with his care. States they do have a basement, but he can go outside and enter the basement without steps if needed. States he has all the DME needed at home. States he is unsure what his discharge plan is at this time. States "it depends on the cultures, guess I will find out Wednesday." I discussed the option of inpatient rehab, skilled facilities and home health services. He is unsure and would like me to come back Wednesday for the options when he knows if he will need surgery again. He [place] not [place] go [place]. He does have Medicare A&B and for Life. CM will continue to follow and assist with discharge planning/needs. Boiler Coverer Helper: Melanie Deleon DCPIA - Discharge Planning Initial Assessment Updated by [email or web address]: Melanie Deleon on 03/18/18 1:54 pm * Is the patient Alert and Oriented? Yes * How many steps to enter\\exit or inside your home? 3/0 * PCP Dr. Carvalho * Pharmacy [facility] pharmacy * Preadmission Environment Home with Family * ADLs Independent * Equipment Bedside Commode Cane CPAP Power Chair or Electric Scooter Rolling Walker Shower Chair Walker Wheelchair * List name and contact numbers for known caregivers / representatives who currently or will assist patient after discharge: Christina - - house phone [phone] Cell - [phone] * Verbal permission to speak to the caregivers and representatives has been obtained from the patient. Yes * Community resources currently utilized [facility] * Additional services required to return to the preadmission environment? Yes * Can the patient safely return to the preadmission environment? Yes * Has this patient been hospitalized within the prior 30 days at any hospital? No External Providers [facility] Next Contact Date: Service Request Date: Service Type: Resolution: Reviewer: Comments: Last DP export: 03/22/18 1:58 Patient Name: DVAON MONGE Page [id number] at 1225 All edits/amendments must be made on the electronic document DICTATION DATE: 03/23/18 1225 SPANISH LECTURER: CECILIA 03/23/18 1225 RPT#: [id number] DC DATE: STATUS: ADM IN [facility] [address] [place] [address] END OF REPORT
--- NOTE | ~2018-03-17 | MORECARE ---
CASE MANAGEMENT DISCHARGE SUMMARY PATIENT: DAVON MONGE UNIT: [id number] ADM DATE: 03/17/18 AGE: 72 : 47 SEX: M ROOM/BED: D.2239 AUTHOR: EMMA EASLEY PHYSICIAN: REFERRING PHYSICIAN: BRYAN THOMAS MD DATE OF SERVICE: 03/18/18 Discharge Plan Patient Name: DAVON MONGE Facility: [facility]:[place] : 1945 Planned Disposition: Home Anticipated Discharge Date: Discharge Date: Expected LOS: Initial Reviewer: [email or web address] Initial Review Date: 03/18/2018 Generated: 03/18/18 4:29 pm Comments DCP- Discharge Planning Updated by [email or web address]: Melanie Deleon on 03/18/18 1:[address] Patient Name: DAVON MONGE Admission Status: Elective Accout number: [id number] Admission Date: 03-17-2018 : 1945 Admission Diagnosis: Attending: BRYAN THOMAS Current LOS: 1 Anticipated DC Date: Planned Disposition: Home Primary Insurance: MEDICARE A & B Discharge Planning Comments: CM met with patient to discuss discharge planning, he is alone in the room. States he lives with his . States he is independent with his care. States they do have a basement, but he can go outside and enter the basement without steps if needed. States he has all the DME needed at home. States he is unsure what his discharge plan is at this time. States "it depends on the cultures, guess I will find out Wednesday." I discussed the option of inpatient rehab, skilled facilities and home health services. He is unsure and would like me to come back Wednesday for the options when he knows if he will need surgery again. [facility] not [facility]. He does have Medicare A&B and for Life. CM will continue to follow and assist with discharge planning/needs. Manager Documentation: Melanie Deleon DCPIA - Discharge Planning Initial Assessment Updated by [email or web address]: Melanie Deleon on 03/18/18 1:54 pm * Is the patient Alert and Oriented? Yes * How many steps to enter\\exit or inside your home? 3/0 * PCP Dr. Carvalho * Pharmacy [facility] pharmacy * Preadmission Environment Home with Family * ADLs Independent * Equipment Bedside Commode Cane CPAP Power Chair or Electric Scooter Rolling Walker Shower Chair Walker Wheelchair * List name and contact numbers for known caregivers / representatives who currently or will assist patient after discharge: Christina cobb phone [phone] Cell - [phone] * Verbal permission to speak to the caregivers and representatives has been obtained from the patient. Yes * Community resources currently utilized [facility] Services * Additional services required to return to the preadmission environment? Yes * Can the patient safely return to the preadmission environment? Yes * Has this patient been hospitalized within the prior 30 days at any hospital? No Last DP export: 03/18/18 1:14 p Patient Name: DAVON MONGE Page 58072 at 1530 All edits/amendments must be made on the electronic document DICTATION DATE: 03/18/18 152 ASSURANCE SENIOR: CECILIA 03/18/18 152 RPT#: [id number] DC DATE: STATUS: ADM IN [facility] [address] [place] [address] END OF REPORT
--- NOTE | ~2018-03-17 | MORECARE ---
CASE MANAGEMENT DISCHARGE SUMMARY PATIENT: DAVON MONGE UNIT: [id number] ADM DATE: 03/17/18 AGE: 72 : 47 SEX: M ROOM/BED: D.2239 AUTHOR: EMMA EASLEY PHYSICIAN: REFERRING PHYSICIAN: BRYAN THOMAS MD DATE OF SERVICE: 03/18/18 Discharge Plan Patient Name: DAVON MONGE [facility] [facility] 1945 Planned Disposition: Home Anticipated Discharge Date: Discharge Date: Expected LOS: Initial Reviewer: [email or web address] Initial Review Date: 03/18/2018 Generated: 03/18/18 2:59 pm DCPIA - Discharge Planning Initial Assessment Updated by [email or web address]: Melanie Deleon on 03/18/18 1:54 pm * Is the patient Alert and Oriented? Yes * How many steps to enter\exit or inside your home? 3/0 * PCP Dr. Carvalho * Pharmacy [facility] pharmacy * Preadmission Environment Home with Family * ADLs Independent * Equipment Bedside Commode Cane CPAP Power Chair or Electric Scooter Rolling Walker Shower Chair Walker Wheelchair * List name and contact numbers for known caregivers / representatives who currently or will assist patient after discharge: Christina Vieira - cross anchor phone [phone] [facility] - [phone] * Verbal permission to speak to the caregivers and representatives has been obtained from the patient. Yes * Community resources currently utilized [facility] Services * Additional services required to return to the preadmission environment? Yes * Can the patient safely return to the preadmission environment? Yes * Has this patient been hospitalized within the prior 30 days at any hospital? No Patient Name: DAVON MONGE Page 13351 at 1359 All edits/amendments must be made on the electronic document DICTATION DATE: 03/18/18 1358 CORONARY CLINICAL SPECIALIST: CECILIA 03/18/18 1358 RPT#: [id number] DC DATE: STATUS: ADM IN [facility] [address] [place] [address] END OF REPORT
--- NOTE | ~2018-03-17 | MORECARE ---
CASE MANAGEMENT DISCHARGE SUMMARY PATIENT: DAVON MONGE UNIT: [id number] ADM DATE: 03/17/18 AGE: 72 : 47 SEX: M ROOM/BED: D.2239 AUTHOR: KAUSHAL,DOC PHYSICIAN: REFERRING PHYSICIAN: BRYAN THOMAS MD DATE OF SERVICE: 03/24/18 Discharge Plan Patient Name: DAVON MONGE Facility: [facility]:[place] : 1945 Planned Disposition: Home Anticipated Discharge Date: Discharge Date: Expected LOS: Initial Reviewer: [email or web address] Initial Review Date: 03/18/2018 Generated: 03/24/18 12:59 pm Comments DCP- Discharge Planning Updated by [email or web address]: Melanie Deleon on 03/24/18 10:[address] Discharging today to [facility] skilled (Medicare) bed via their WC van with leg extension on WC. DCP- Discharge Planning Updated by [email or web address]: Melanie Deleon on 03/24/18 10:[address] DC orders/summary/MAR faxed to [facility]. Beena states they will pick him up at 1300. I informed donor relations coordinator and primary nurse. CM will continue to follow and assist with discharge planning/needs. DCP- Discharge Planning Updated by [id number]: Melanie Deleon on 03/23/18 11:[address] Received a call from Qing at [facility] that states they cannot take him with Imitrex on his med list. Patient states he can do without it if necessary. He would like a private room, all of their rooms are semi-private. He would like a referral to [facility], I have sent clinical to them and spoke with Kellie. I informed Qing that they are looking at going to [facility] at this time. DCP- Discharge Planning Updated by [email or web address]: Melanie Deleon on 03/22/18 1:[address] Christina called me and states they are not going to accept patient to inpatient rehab because of limited mobility at this time. I spoke to patient and and informed and they would like a referral to [facility]. I spoke with Qing at [facility] and clinical faxed. CM will continue to follow and assist with discharge planning/needs. DCP- Discharge Planning Updated by [email or web address]: Melanie Deleon on 03/22/18 10:[address] Met with patient and his concerning discharge planning. He would like to see if he can go to inpatient rehab here and if he does not qualify, would like to go to [facility] prior to going home. I spoke with Christina in rehab and sent referral order. CM will continue to follow and assist with discharge planning/needs. DCP- Discharge Planning Updated by [id number]: Melanie Oropezamike on 03/18/18 1:[address] Patient Name: DAVON MONGE Admission Status: Elective Accout number: [id number] Admission Date: 03-17-2018 : 1945 Admission Diagnosis: Attending: BRYAN THOMAS Current LOS: 1 Anticipated DC Date: Planned Disposition: Home Primary Insurance: MEDICARE A & B Discharge Planning Comments: CM met with patient to discuss discharge planning, he is alone in the room. States he lives with his . States he is independent with his care. States they do have a basement, but he can go outside and enter the basement without steps if needed. States he has all the DME needed at home. States he is unsure what his discharge plan is at this time. States "it depends on the cultures, guess I will find out Wednesday." I discussed the option of inpatient rehab, skilled facilities and home health services. He is unsure and would like me to come back Wednesday for the options when he knows if he will need surgery again. He does not want to go to the [facility]. He does have Medicare A&B and for Life. CM will continue to follow and assist with discharge planning/needs. Pharmacy Technician Per Diem: Melanie Pancho DCPIA - Discharge Planning Initial Assessment Updated by [email or web address]: Melanie Deleon on 03/18/18 1:54 pm * Is the patient Alert and Oriented? Yes * How many steps to enter\\exit or inside your home? 3/0 * PCP Dr. Carvalho * Pharmacy [facility] pharmacy * Preadmission Environment Home with Family * ADLs Independent * Equipment Bedside Commode Cane CPAP Power Chair or Electric Scooter Rolling Walker Shower Chair Walker Wheelchair * List name and contact numbers for known caregivers / representatives who currently or will assist patient after discharge: Christina cobb phone [phone] Cell - [phone] * Verbal permission to speak to the caregivers and representatives has been obtained from the patient. Yes * Community resources currently utilized [facility] * Additional services required to return to the preadmission environment? Yes * Can the patient safely return to the preadmission environment? Yes * Has this patient been hospitalized within the prior 30 days at any hospital? No Coverage Notice Reviewer: [email or web address] Isha Deleon Notice Issued Date-Time: 03/24/2018 11:49 Notice Type: IM Discharge Notice Notice Delivered To: Patient Relationship to Patient: Self Gear Design Engineer Name: Delivery Method: HAND - Hand Delivered Jessica Days: Prior Verbal Notification: Recipient Understood Notice: Yes Recipient Signature: Yes Med Rec Note Co-signed by Attending: Coverage Notice Comment: IMM explained, signed, copy given, original placed in MR Last DP export: 03/24/18 10:38 Patient Name: DAVON MONGE Page 60694 at 1159 All edits/amendments must be made on the electronic document DICTATION DATE: 03/24/18 1159 WELFARE CENTRE MANAGER: CECILIA 03/24/18 1159 RPT#: [id number] DC DATE: STATUS: ADM IN [facility] [address] [place] [address] END OF REPORT
--- NOTE | ~2018-03-17 | MORECARE ---
CASE MANAGEMENT DISCHARGE SUMMARY PATIENT: DAVON MONGE UNIT: [id number] ADM DATE: 03/17/18 AGE: 72 : [birth year] SEX: M ROOM/BED: D.2239 AUTHOR: KAUSHAL,DOC PHYSICIAN: REFERRING PHYSICIAN: BRYAN THOMAS MD DATE OF SERVICE: 03/22/18 Discharge Plan Patient Name: DAVON MONGE Facility: [facility]:[place] : 1945 Planned Disposition: Home Anticipated Discharge Date: Discharge Date: Expected LOS: Initial Reviewer: [email or web address] Initial Review Date: 03/18/2018 Generated: 03/22/18 12:06 pm Comments DCP- Discharge Planning Updated by [email or web address]: Melanie Deleon on 03/22/18 10:[address] Met with patient and his concerning discharge planning. He would like to see if he can go to inpatient rehab here and if he does not qualify, would like to go to [facility] prior to going home. I spoke with Christina in rehab and sent referral order. CM will continue to follow and assist with discharge planning/needs. DCP- Discharge Planning Updated by [email or web address]: Melanie Deleon on 03/18/18 1:[address] Patient Name: DAVON MONGE Admission Status: Elective Accout number: [id number] Admission Date: 03-17-2018 : 1945 Admission Diagnosis: Attending: BRYAN THOMAS Current LOS: 1 Anticipated DC Date: Planned Disposition: Home Primary Insurance: MEDICARE A & B Discharge Planning Comments: CM met with patient to discuss discharge planning, he is alone in the room. States he lives with his . States he is independent with his care. States they do have a basement, but he can go outside and enter the basement without steps if needed. States he has all the DME needed at home. States he is unsure what his discharge plan is at this time. States "it depends on the cultures, guess I will find out Wednesday." I discussed the option of inpatient rehab, skilled facilities and home health services. He is unsure and would like me to come back Wednesday for the options when he knows if he will need surgery again. He does not want to go to the [facility]. He does have Medicare A&B and for Life. CM will continue to follow and assist with discharge planning/needs. Boom Truck Driver: Melanie Oropezamike DCPIA - Discharge Planning Initial Assessment Updated by [email or web address]: Melanie Deleon on 03/18/18 1:54 pm * Is the patient Alert and Oriented? Yes * How many steps to enter\\exit or inside your home? 3/0 * PCP Dr. Carvalho * Pharmacy [facility] pharmacy * Preadmission Environment Home with Family * ADLs Independent * Equipment Bedside Commode Cane CPAP Power Chair or Electric Scooter Rolling Walker Shower Chair Walker Wheelchair * List name and contact numbers for known caregivers / representatives who currently or will assist patient after discharge: Christina - - house phone [phone] Cell - [phone] * Verbal permission to speak to the caregivers and representatives has been obtained from the patient. Yes * Community resources currently utilized [facility] Services * Additional services required to return to the preadmission environment? Yes * Can the patient safely return to the preadmission environment? Yes * Has this patient been hospitalized within the prior 30 days at any hospital? No Last DP export: 03/18/18 2:29 p Patient Name: DAVON MONGE Page 86241 at 1106 All edits/amendments must be made on the electronic document DICTATION DATE: 03/22/181105 TRANSPORTATION DISPATCHER: CECILIA 03/22/181105 RPT#: [id number] GA DATE: STATUS: ADM IN [facility] [address] [place] [address] END OF REPORT
--- NOTE | ~2018-03-17 | MORECARE ---
CASE MANAGEMENT DISCHARGE SUMMARY PATIENT: DAVON MONGE UNIT: [id number] ADM DATE: 03/17/18 AGE: 72 : [birth year] SEX: M ROOM/BED: D.2239 AUTHOR: KAUSHAL,DOC PHYSICIAN: REFERRING PHYSICIAN: BRYAN THOMAS MD DATE OF SERVICE: 03/23/18 Discharge Plan Patient Name: DAVON MONGE Facility: [facility]:[place] : 1945 Planned Disposition: Home Anticipated Discharge Date: Discharge Date: Expected LOS: Initial Reviewer: [email or web address] Initial Review Date: 03/18/2018 Generated: 03/23/18 1:37 pm Comments DCP- Discharge Planning Updated by [email or web address]: Mealnie Deleon on 03/23/18 11:[address] Received a call from Qing at [facility] that states they cannot take him with Imitrex on his med list. Patient states he can do without it if necessary. He would like a private room, all of their rooms are semi-private. He would like a referral to [facility], I have sent clinical to them and spoke with Kellie. I informed Qing that they are looking at going to [facility] at this time. DCP- Discharge Planning Updated by [email or web address]: Melanie Deleon on 03/22/18 1:[address] Christina called me and states they are not going to accept patient to inpatient rehab because of limited mobility at this time. I spoke to patient and and informed and they would like a referral to [facility]. I spoke with Qing at [facility] and clinical faxed. CM will continue to follow and assist with discharge planning/needs. DCP- Discharge Planning Updated by [email or web address]: Melanie Deleon on 03/22/18 10:[address] Met with patient and his concerning discharge planning. He would like to see if he can go to inpatient rehab here and if he does not qualify, would like to go to [facility] prior to going home. I spoke with Christina in rehab and sent referral order. CM will continue to follow and assist with discharge planning/needs. DCP- Discharge Planning Updated by [email or web address]: Melanie Deleon on 03/18/18 1:[address] Patient Name: DAVON MONGE Admission Status: Elective Accout number: [id number] Admission Date: 03-17-2018 : 1945 Admission Diagnosis: Attending: BRYAN THOMAS Current LOS: 1 Anticipated DC Date: Planned Disposition: Home Primary Insurance: MEDICARE A & B Discharge Planning Comments: CM met with patient to discuss discharge planning, he is alone in the room. States he lives with his . States he is independent with his care. States they do have a basement, but he can go outside and enter the basement without steps if needed. States he has all the DME needed at home. States he is unsure what his discharge plan is at this time. States "it depends on the cultures, guess I will find out Wednesday." I discussed the option of inpatient rehab, skilled facilities and home health services. He is unsure and would like me to come back Wednesday for the options when he knows if he will need surgery again. He does not want to go to the [facility]. He does have Medicare A&B and for Life. CM will continue to follow and assist with discharge planning/needs. Route Manager: Melanie Pancho DCPIA - Discharge Planning Initial Assessment Updated by [id number]: Melanie Pancho on 03/18/18 1:54 pm * Is the patient Alert and Oriented? Yes * How many steps to enter\\exit or inside your home? 3/0 * PCP Dr. Carvalho * Pharmacy [facility] pharmacy * Preadmission Environment Home with Family * ADLs Independent * Equipment Bedside Commode Cane CPAP Power Chair or Electric Scooter Rolling Walker Shower Chair Walker Wheelchair * List name and contact numbers for known caregivers / representatives who currently or will assist patient after discharge: Christina - - house phone [phone] Cell - [phone] * Verbal permission to speak to the caregivers and representatives has been obtained from the patient. Yes * Community resources currently utilized [facility] Services * Additional services required to return to the preadmission environment? Yes * Can the patient safely return to the preadmission environment? Yes * Has this patient been hospitalized within the prior 30 days at any hospital? No Last DP export: 03/23/18 11:25 Patient Name: DAVON MONGE Page 29412 at 1237 All edits/amendments must be made on the electronic document DICTATION DATE: 03/23/18 123 COUNTY ADVISER: CECILIA 03/23/18 1237 RPT#: [id number] DC DATE: STATUS: ADM IN [facility] [address] [place] [address] END OF REPORT
[~2018-03-17 11:22] MED LIST changes: +BACTRIM DS1 TAB PO; +BAYER CHEWABLE81 MG PO; +CARBIDOPA-LEVO1 EAC2 PO; +CLEOCIN HCL300 MG PO
[2018-03-17 13:11] LABS: HEMATOCRIT 36.3 % (42.0-54.0); HEMOGLOBIN 11.5 g/dL (13.5-17.5); MCH 27.2 pg (26.0-34.0); MCHC 31.7 g/dL (31.0-37.0); MCV 85.8 fL (80.0-100.0); MEAN PLATELET VOLUME 8.9 fL (7.4-10.4); PLATELET COUNT 293 10x3/uL (130-400); RBC 4.23 10x6/uL (4.20-6.10); RDW 13.9 % (11.5-14.5); WBC 8.2 10x3/uL (4.8-10.8)
[2018-03-17 13:25] VITALS: BP 158/83; BMI 41.6
[2018-03-17 13:47] LABS: C-REACTIVE PROTEIN 9.5 mg/dL (0.0-0.9); CALC OSMOLALITY 279 mosm/kg (275-300); CALCIUM 9.1 mg/dL (8.5-10.1); CARBON DIOXIDE 30.1 mmol/L (21.0-32.0); CHLORIDE - SERUM 101 mmol/L (98-107); CREATININE - SERUM 0.7 mg/dL (0.6-1.3); POTASSIUM - SERUM 4.2 mmol/L (3.5-5.1); SODIUM 140 mmol/L (136-145); UREA NITROGEN 14 mg/dL (7-18); eGFR NON AFRICAN AMERICAN > 90 mL/min (90-120)
[2018-03-17 13:48] LABS: GLUCOSE 95 mg/dL (74-106)
[2018-03-17 14:37] LABS: ERYTHROCYTE SEDIMENTATION RATE 62 mm/hr (0-20)
[2018-03-17 18:12] VITALS: BP 131/64
[2018-03-17 20:31] VITALS: BP 138/65
[2018-03-17 21:06] LABS: NEUT - BF 89 %
[2018-03-17 21:08] LABS: PROTEIN - BODY FLUID 5.6 G/DL
[2018-03-17 23:31] VITALS: BP 134/72; BMI 41.6
[2018-03-18 05:03] VITALS: BP 143/76
[2018-03-18 08:57] VITALS: BP 137/58
[2018-03-18 12:48] VITALS: BP 139/89
[2018-03-18 17:28] VITALS: BP 138/71
[2018-03-18 21:13] VITALS: BP 105/84
[2018-03-19 00:27] VITALS: BP 110/79
[2018-03-19 04:50] VITALS: BP 141/82
[2018-03-19 08:45] VITALS: BP 145/69
[2018-03-19 12:30] VITALS: BP 100/68
[2018-03-19 16:25] VITALS: BP 105/69
[2018-03-19 19:59] VITALS: BP 139/63
[2018-03-20 05:35] VITALS: BP 130/66
[2018-03-20 06:20] LABS: BASOPHILS 0.4 % (0-2); EOSINOPHILS 4.7 % (0-7); HEMATOCRIT 33.5 % (42.0-54.0); HEMOGLOBIN 10.6 g/dL (13.5-17.5); LYMPHOCYTES 22.7 % (15-50); MCH 26.8 pg (26.0-34.0); MCHC 31.6 g/dL (31.0-37.0); MCV 84.8 fL (80.0-100.0); MEAN PLATELET VOLUME 8.9 fL (7.4-10.4); MONOCYTES 11.2 % (2-11); PLATELET COUNT 269 10x3/uL (130-400); RBC 3.95 10x6/uL (4.20-6.10); RDW 13.6 % (11.5-14.5); WBC 7.2 10x3/uL (4.8-10.8)
[2018-03-20 06:44] LABS: CALC OSMOLALITY 273 mosm/kg (275-300); CALCIUM 8.6 mg/dL (8.5-10.1); CHLORIDE - SERUM 100 mmol/L (98-107); CREATININE - SERUM 0.7 mg/dL (0.6-1.3); GLUCOSE 120 mg/dL (74-106); POTASSIUM - SERUM 4.1 mmol/L (3.5-5.1); SODIUM 137 mmol/L (136-145); UREA NITROGEN 11 mg/dL (7-18); eGFR NON AFRICAN AMERICAN > 90 mL/min (90-120)
[2018-03-20 07:45] VITALS: BP 105/63
[2018-03-20 08:11] VITALS: BP 151/65
[2018-03-20 12:30] VITALS: BP 135/60
[2018-03-20 15:38] VITALS: BP 149/59
[2018-03-20 23:06] VITALS: BP 148/67
[2018-03-21] VITALS (11 sets, daily range): BP systolic 110–167; BP diastolic 46–78
[2018-03-22] VITALS (7 sets, daily range): BP systolic 128–185; BP diastolic 50–85
[2018-03-22 08:36] LABS: HEMATOCRIT 31.3 % (42.0-54.0); HEMOGLOBIN 9.9 g/dL (13.5-17.5); MCHC 31.6 g/dL (31.0-37.0); MCV 85.3 fL (80.0-100.0); MEAN PLATELET VOLUME 8.3 fL (7.4-10.4); RBC 3.67 10x6/uL (4.20-6.10); RDW 13.9 % (11.5-14.5); WBC 9.4 10x3/uL (4.8-10.8)
[2018-03-22 08:46] LABS: CALC OSMOLALITY 275 mosm/kg (275-300); CARBON DIOXIDE 31.3 mmol/L (21.0-32.0); CHLORIDE - SERUM 99 mmol/L (98-107); CREATININE - SERUM 0.7 mg/dL (0.6-1.3); GLUCOSE 161 mg/dL (74-106); POTASSIUM - SERUM 4.1 mmol/L (3.5-5.1); SODIUM 137 mmol/L (136-145); UREA NITROGEN 9 mg/dL (7-18); eGFR NON AFRICAN AMERICAN > 90 mL/min (90-120)
[2018-03-23] VITALS (7 sets, daily range): BP systolic 133–154; BP diastolic 53–65; Ht 180.3 cm; Wt 135.2 kg
[2018-03-24 04:23] VITALS: BP 141/62
[2018-03-24] MEDS ORDERED: ROCEPHIN 2 GM/D52 G1 IV (07:39)
[2018-03-24] MEDS ORDERED: LOVENOX40 MG/0.4 SC (07:39)
[2018-03-24] MEDS ORDERED: NORCO 10-325 TA1 TAB PO (07:40)
[2018-03-24 08:30] VITALS: BP 145/58
[2018-03-24 12:15] VITALS: BP 145/58
== END 2018-03-24 14:32 | disposition short-term general hospital, planned readmission (82) | DRG 464 ==
LOC: D.OPS 11:22 → D.MS 17:57 → D.OPS 17:58 → D.MS 17:59
PROVIDERS: Anesthesiology; Orthopaedic Surgery; Student in an Organized Health Care Education/Training Program
PROC: 0S9D3ZX Drainage of Left Knee Joint, Percutaneous Approach, Diagnostic (ICD-10-PCS; 2018-03-17)
PROC: 0SPD0JZ Removal of Synthetic Substitute from Left Knee Joint, Open Approach (ICD-10-PCS; principal; 2018-03-22)
PROC: 0SHD08Z Insertion of Spacer into Left Knee Joint, Open Approach (ICD-10-PCS; 2018-03-22)
DX: T84.9XXA Unspecified complication of internal orthopedic prosthetic device, implant and graft, initial encounter (principal); L03.116 Cellulitis of left lower limb; Z68.42 Body mass index [BMI] 45.0-49.9, adult; I10 Essential (primary) hypertension; I25.10 Atherosclerotic heart disease of native coronary artery without angina pectoris; I48.91 Unspecified atrial fibrillation

== ENCOUNTER 2018-05-16 09:31 | Inpatient (IN) | payer MEDICARE, OTHER ==
[~2018-05-16] VITALS: Ht 180.3 cm; Wt 136.8 kg
[~2018-05-16 09:31] MED LIST changes: +LOVENOX40 MG/0.4 SC; +NORCO 10-325 TA1 TAB PO; +ROCEPHIN 2 GM/D52 G1 IV
[2018-05-30 12:42] LABS: BASOPHILS 0.3 % (0-2); EOSINOPHILS 2.5 % (0-7); HEMATOCRIT 41.8 % (42.0-54.0); HEMOGLOBIN 13.5 g/dL (13.5-17.5); IMMATURE GRANULOCYTES 0.5 % (0-5); LYMPHOCYTES 17.9 % (15-50); MCH 27.2 pg (26.0-34.0); MCHC 32.3 g/dL (31.0-37.0); MCV 84.1 fL (80.0-100.0); MEAN PLATELET VOLUME 9.4 fL (7.4-10.4); MONOCYTES 7.4 % (2-11); NEUTROPHILS 71.4 % (40-80); PLATELET COUNT 203 10x3/uL (130-400); RBC 4.97 10x6/uL (4.20-6.10); WBC 11.1 10x3/uL (4.8-10.8)
[2018-05-30 12:49] LABS: APPEARANCE CLEAR (CLEAR); BILIRUBIN NEGATIVE (NEGATIVE); COLOR YELLOW (YELLOW); GLUCOSE NEGATIVE (NEGATIVE); KETONE NEGATIVE (NEGATIVE); NITRITE NEGATIVE (NEGATIVE); PROTEIN NEGATIVE (NEGATIVE); UROBILINOGEN NORMAL (NORMAL)
[2018-05-30 12:54] LABS: CALC OSMOLALITY 280 mosm/kg (275-300); CALCIUM 9.2 mg/dL (8.5-10.1); CARBON DIOXIDE 30.1 mmol/L (21.0-32.0); CHLORIDE - SERUM 100 mmol/L (98-107); CREATININE - SERUM 0.8 mg/dL (0.6-1.3); SODIUM 139 mmol/L (136-145); UREA NITROGEN 20 mg/dL (7-18); eGFR NON AFRICAN AMERICAN > 90 mL/min (90-120)
[2018-05-30 12:56] LABS: APTT 29.6 SECONDS (22.8-39.4); INR 1.1 (0.85-1.17); PROTIME 13.7 SECONDS (11.6-15.0)
[2018-05-30 12:57] LABS: GLUCOSE 101 mg/dL (74-106)
[2018-05-30 14:10] VITALS: BP 157/86; BMI 42.0
--- NOTE | 2018-05-30 18:55 | NUR ---
ANES AT BEDSIDE. ORDERS TO D/C PACU AT 6L OXIMIZER. D/C CRITERIA MET PER ANES
[2018-05-30 20:41] VITALS: BP 142/64
[2018-05-31 00:59] VITALS: BP 142/64; BMI 42.0
[2018-05-31 03:29] VITALS: BP 128/64
[2018-05-31 05:01] LABS: HEMATOCRIT 37.1 % (42.0-54.0); HEMOGLOBIN 11.6 g/dL (13.5-17.5); MCH 26.9 pg (26.0-34.0); MCHC 31.3 g/dL (31.0-37.0); MCV 85.9 fL (80.0-100.0); MEAN PLATELET VOLUME 9.2 fL (7.4-10.4); RBC 4.32 10x6/uL (4.20-6.10); RDW 15.8 % (11.5-14.5); WBC 12.4 10x3/uL (4.8-10.8)
--- NOTE | 2018-05-31 07:15 | NUR ---
MORNING ASSESSMENT COMPLETE. SEE ASSESSMENT FLOWSHEET FOR FURTHER DERTAILS. PT LYING IN BED AAO X4 TO PEROSN, PLACE, TIME, AND SITUATION. DENIES NEEDS PAIN AT THIS TIME. CL IN REACH. SIDE RAILS UP X3 FOR PATIENT FELICIANO
[2018-05-31 08:39] VITALS: BP 141/69
[2018-05-31 12:13] VITALS: BP 131/56
[2018-05-31] MEDS ORDERED: IMITREX6 MG/0.51 SQ (12:18)
[2018-05-31 15:55] VITALS: BP 140/57
[2018-05-31 16:41] VITALS: Ht 180.3 cm; Wt 136.8 kg
--- NOTE | 2018-05-31 22:37 | NUR ---
PATIENT REPORTED HE HAD A TEMP OF 100.1 TYLENOL 650MG GIVEN PO. IV OUT AT START OF THIS SHIFT RESTARTED WITH ATEMPT X1 WITH 20G. TO LEFT FA. IV MED RESTARTED. RECHECK OF TEMP 98.7
[2018-06-01 04:00] VITALS: BP 135/68
[2018-06-01 06:04] LABS: HEMATOCRIT 32.8 % (42.0-54.0); HEMOGLOBIN 10.3 g/dL (13.5-17.5); MCHC 31.4 g/dL (31.0-37.0); MCV 85.9 fL (80.0-100.0); MEAN PLATELET VOLUME 9.5 fL (7.4-10.4); RBC 3.82 10x6/uL (4.20-6.10); RDW 16.1 % (11.5-14.5)
[2018-06-01 06:24] LABS: WBC 9.1 10x3/uL (4.8-10.8)
--- NOTE | 2018-06-01 08:02 | NUR ---
PT RESTING IN BED. AROUSED BY VERBAL STIMULI. NO S/S OF ACUTE DISTRESS. CL IN PLACE.
[2018-06-01 08:27] VITALS: BP 140/65
--- NOTE | 2018-06-01 12:41 | NUR ---
LEFT KNEE INCISION COVERED WITH PREVENA DRESSING AND ATTACHED TO ULTA ([facility]) VAC. INCISION IS INTACT WITHOUT REDNESS, EDEMA OR ODOR. WHEN PT IS D/C'D TO REHAB THE PREVENA PUMP IS ALREADY IN HIS ROOM. HE WILL NEED TO BE DISCONNECTED FROM THE ULTA AND ATTACHED TO THE PREVENA PUMP.
[2018-06-01 12:53] VITALS: BP 140/56
--- NOTE | 2018-06-01 15:06 | MORECARE ---
CASE MANAGEMENT DISCHARGE SUMMARY PATIENT: DAVON MONGE UNIT: [id number] ADM DATE: 05/30/18 AGE: 72 : [birth year] SEX: M ROOM/BED: D.2224 AUTHOR: EMMA EASLEY PHYSICIAN: REFERRING PHYSICIAN: BRYAN THOMAS MD DATE OF SERVICE: 06/01/18 Discharge Plan Patient Name: DAVON MONGE [facility] [facility] 1945 Planned Disposition: Group Home Facility Anticipated Discharge Date: 06/02/18 Discharge Date: Expected LOS: 3 Initial Reviewer: [email or web address] Initial Review Date: 06/01/2018 Generated: 06/01/18 4:06 pm External Providers External Provider: [facility] Next Contact Date: Service Request Date: Service Type: Resolution: Reviewer: Comments: Patient Name: DAVON MONGE Page 74781 at 1506 All edits/amendments must be made on the electronic document DICTATION DATE: 06/01/18 1506 UNIVERSITY LECTURER: CECILIA 06/01/18 1506 RPT#: [id number] NE DATE: STATUS: ADM IN [facility] [address] [place] [address] END OF REPORT
--- NOTE | 2018-06-01 15:19 | MORECARE ---
CASE MANAGEMENT DISCHARGE SUMMARY PATIENT: DAVON MONGE UNIT: [id number] ADM DATE: 05/30/18 AGE: 72 : [birth year] SEX: M ROOM/BED: D.2224 AUTHOR: EMMA EASLEY PHYSICIAN: REFERRING PHYSICIAN: BRYAN THOMAS MD DATE OF SERVICE: 06/01/18 Discharge Plan Patient Name: DAVON MONGE [facility] [facility] 1945 Planned Disposition: Jail Facility Anticipated Discharge Date: 06/02/18 Discharge Date: Expected LOS: 3 Initial Reviewer: [email or web address] Initial Review Date: 06/01/2018 Generated: 06/01/18 4:19 pm Comments DCP- Discharge Planning Updated by [email or web address]: Melanie Deleon on 06/01/18 2:[address] Patient Name: DAVON MONGE Admission Status: Elective Accout number: [id number] Admission Date: 05-30-2018 : 1945 Admission Diagnosis: Attending: BRYAN THOMAS Current LOS: 2 Anticipated DC Date: 06-02-2018 Planned Disposition: Jail Facility Primary Insurance: MEDICARE A & B Discharge Planning Comments: CM met with patient to discuss discharge planning, he is alone in the room. He lives with his . States he ambulates with a Rollator Walker and his manages his medication management, otherwise he is independent. He would like a referral to [facility] for skilled therapy, he has been there in the past. I spoke with Beena and sent clinical and she states they will accept him back when ready for discharge. CM will continue to follow and assist with discharge planning/needs. Wood Lather: Melanie Deleon Last DP export: 06/01/18 2:06 p Patient Name: DAVON MONGE Page 65193 at 1517 All edits/amendments must be made on the electronic document DICTATION DATE: 06/01/181517 AUTO AIR CONDITIONING INSTALLER: CECILIA 06/01/18 1518 RPT#: [id number] DC DATE: STATUS: ADM IN [place] [address] [place] [address] END OF REPORT
[2018-06-01 15:47] VITALS: BP 115/46
[2018-06-01 17:44] VITALS: BP 113/54
--- NOTE | 2018-06-01 18:23 | NUR ---
PT RESTING IN BED WATCHING TV NO S/S OF ACUTE DISTRESS. CL IN PLACE.
[2018-06-01 20:00] VITALS: BP 136/59
--- NOTE | 2018-06-01 20:00 | NUR ---
ALERT RESTING IN BED IMOBLIZER IN PLACE TO LEFT KNEE, WOUND VAC IN USE TO INCISION TO LEFT KNEE, DENIES PAIN CALL LIGHT IN REACH
[2018-06-02] VITALS: BP 110/59
[2018-06-02 04:00] VITALS: BP 145/56
--- NOTE | 2018-06-02 08:00 | NUR ---
PATIENT SITTING UP IN BED WITH NO COMPLAINTS OR SIGNS OF DISTRESS. CALL LIGHT WITHIN REACH.
[2018-06-02] MEDS ORDERED: PERCOCET 10-321 EAC1 PO (08:21)
[2018-06-02] MEDS ORDERED: LOVENOX40 MG/0.4 SC (08:21)
[2018-06-02 08:55] VITALS: BP 133/71
--- NOTE | 2018-06-02 09:23 | MORECARE ---
CASE MANAGEMENT DISCHARGE SUMMARY PATIENT: DAVON MONGE UNIT: [id number] ADM DATE: 05/30/18 AGE: 72 : [birth year] SEX: M ROOM/BED: D.2224 AUTHOR: EMMA EASLEY PHYSICIAN: REFERRING PHYSICIAN: BRYAN THOMAS MD DATE OF SERVICE: 06/02/18 Discharge Plan Patient Name: DAVON MONGE Facility: [facility]:[place] : 1945 Planned Disposition: Mcfp Facility Anticipated Discharge Date: 06/02/18 Discharge Date: Expected LOS: 3 Initial Reviewer: [email or web address] Initial Review Date: 06/01/2018 Generated: 06/02/18 10:22 am Comments DCP- Discharge Planning Updated by [email or web address]: Melanie Deleon on 06/02/18 8:[address] Received orders for discharge. I called [facility]. Beena is unavailable and will return call. He will be going to a Skilled (Medicare) bed. CM will continue to follow and assist with discharge planning/needs. DCP- Discharge Planning Updated by [email or web address]: Melanie Deleon on 06/01/18 2:[address] Patient Name: DAVON MONGE Admission Status: Elective Accout number: [id number] Admission Date: 05-30-2018 : 1945 Admission Diagnosis: Attending: BRYAN THOMAS Current LOS: 2 Anticipated DC Date: 06-02-2018 Planned Disposition: Mcfp Facility Primary Insurance: MEDICARE A & B Discharge Planning Comments: CM met with patient to discuss discharge planning, he is alone in the room. He lives with his . States he ambulates with a Rollator Walker and his manages his medication management, otherwise he is independent. He would like a referral to [facility] for skilled therapy, he has been there in the past. I spoke with Beena and sent clinical and she states they will accept him back when ready for discharge. CM will continue to follow and assist with discharge planning/needs. Skip Miner Blasting: Melanie Deleon Coverage Notice Reviewer: [id number] - Melanie Deleon Notice Issued Date-Time: 06/02/2018 9:03 Notice Type: IM Discharge Notice Notice Delivered To: Patient Relationship to Patient: Self Vegetable Harvest Machine Operator Name: Delivery Method: HAND - Hand Delivered Jessica Days: Prior Verbal Notification: Recipient Understood Notice: Yes Recipient Signature: Yes Med Rec Note Co-signed by Attending: Coverage Notice Comment: IMM explained, signed, given, copy placed in MR Last DP export: 06/01/18 2:19 p Patient Name: DAVON MONGE Page [id number] at 0923 All edits/amendments must be made on the electronic document DICTATION DATE: 06/02/18921 THROUGH FREIGHT ENGINEER: CECILIA 06/02/18921 RPT#: [id number] DC DATE: STATUS: ADM IN [facility] [address] [place] [address] END OF REPORT
--- NOTE | 2018-06-02 11:23 | NUR ---
PATIENT RECIEVED DC INSTRUCTIONS. VERBALIZED UNDERSTANDING. NO QUESTIONS AT THIS TIME. MIDLINE LEFT IN DUE TO PATIENT STATING HE WILL RECIEVE IV ANTIBIOTICS. NOTIFIED NURSE AT [facility] IN REPORT. EXPLAINED IT DIDNT LOOK LIKE THERE WAS ANY IV ANTIBIOTICS ORDERED. REPORT GIVEN. PATIENT IN WC ESCORTED OUT OF HOSPITAL TO TRANSPORT VAN WITH PERSONAL BELONGINGS.
--- NOTE | 2018-06-03 13:49 | MORECARE ---
CASE MANAGEMENT DISCHARGE SUMMARY PATIENT: DAVON MONGE UNIT: [id number] ADM DATE: 05/30/18 AGE: 72 : [birth year] SEX: M ROOM/BED: D.2224 AUTHOR: EMMA EASLEY PHYSICIAN: REFERRING PHYSICIAN: BRYAN THOMAS MD DATE OF SERVICE: 06/03/18 Discharge Plan Patient Name: DAVON MONGE Facility: [facility]:[place] : 1945 Planned Disposition: Long-Term Facility Anticipated Discharge Date: 06/02/18 Discharge Date: 06/02/2018 Expected LOS: 3 Initial Reviewer: [email or web address] Initial Review Date: 06/01/2018 Generated: 06/03/18 2:49 pm Comments DCP- Discharge Planning Updated by [email or web address]: Melanie Deleon on 06/02/18 8:[address] Received orders for discharge. I called [facility]. Beena is unavailable and will return call. He will be going to a Skilled (Medicare) bed. CM will continue to follow and assist with discharge planning/needs. DCP- Discharge Planning Updated by [email or web address]: Melanie Deleon on 06/01/18 2:[address] Patient Name: DAVON MOGNE Admission Status: Elective Accout number: [id number] Admission Date: 05-30-2018 : 1945 Admission Diagnosis: Attending: BRYAN THOMAS Current LOS: 2 Anticipated DC Date: 06-02-2018 Planned Disposition: Long-Term Facility Primary Insurance: MEDICARE A & B Discharge Planning Comments: CM met with patient to discuss discharge planning, he is alone in the room. He lives with his . States he ambulates with a Rollator Walker and his manages his medication management, otherwise he is independent. He would like a referral to [facility] for skilled therapy, he has been there in the past. I spoke with Beena and sent clinical and she states they will accept him back when ready for discharge. CM will continue to follow and assist with discharge planning/needs. Gas Torch Brazier: Melanie Deleon Coverage Notice Reviewer: [id number] - Melanie Deleon Notice Issued Date-Time: 06/02/2018 9:03 Notice Type: IM Discharge Notice Notice Delivered To: Patient Relationship to Patient: Self Bilingual Speech Language Pathologist Name: Delivery Method: HAND - Hand Delivered Jessica Days: Prior Verbal Notification: Recipient Understood Notice: Yes Recipient Signature: Yes Med Rec Note Co-signed by Attending: Coverage Notice Comment: IMM explained, signed, given, copy placed in MR Last DP export: 06/02/18 8:23 a Patient Name: DAVON MONGE Page [phone] at 1349 All edits/amendments must be made on the electronic document DICTATION DATE: 06/03/18 1349 NAPHTHALENE OPERATOR: CECILIA 06/03/18 1349 RPT#: [id number] DC DATE:06/02/18 STATUS: DIS IN [facility] [address] [place] [address] END OF REPORT
--- NOTE | 2018-06-06 10:47 | OP ---
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 PROCEDURE: 1. Revision left total knee arthroplasty. 2. Removal of previously placed cement spacer. SURGEON: Bryan Thomas MD ANESTHESIA: General. AUCTION BLOCK CLERK: Jake Mora. INTRAOPERATIVE COMPLICATIONS: None. IMPLANTS USED: Apptentive Triathlon total stabilizing system, please see the chart for details. Essentially, an 18 x 150 mm press-fit stem cemented distally and a 17 x 100 mm press-fit stem on the tibia cemented proximally. The adapter set offsets and augments were needed. OPERATIVE SUMMARY IN DETAIL: After obtaining the appropriate preoperative orthopedic surgery consent as well as anesthetic consultation, evaluation and clearance, the patient was brought to the operating room and placed on the operating table in supine position. After general laryngeal mask airway was administered, tourniquet was placed at the proximal aspect of the left lower extremity. Left lower extremity was then prepped and draped in routine sterile fashion. The leg was elevated and exsanguinated, tourniquet was inflated to 350 mmHg. Midline incision was taken down. Small elliptical incisions were made over the very small open areas of skin. They were not deep at all. Upon opening the patient's knee with a paramedian arthrotomy, there was no evidence for infection or infectious appearing material was noted. Cultures were taken. The cement spacer was removed quite easily and copious curettage and I&D was followed by revision total knee that is the femur was approached first. Serial and sequential reaming was done for a size 18. Very good bone was left. The cleanup cuts were made on the distal femur. The distal femur required medial augmentation and femoral augmentation of 10. Chamfer cleanup cuts were also made. There was no offset on the femoral component. The trial was put into place and kept in place while attention was turned to the femur and that to the tibia. Serial and sequential reaming and broaching were done for a size 17. Cleanup cut was then made. The appropriate trial size tibia that is a 6 tibial universal baseplate was trialed with 5 mm augmentations. A size 13 trial insert was thought to be the most appropriate for stabilization and full range of motion. Once it was felt that the appropriate size augments and offsets had been deciphered, trials were removed. The knee was copiously irrigated again with pulsatile lavage fashion. Final components were assembled on the back table. Bone ends were dried and the final components were cemented into place. All excess cement was removed and after the cement was allowed to harden, the OPERATIVE REPORT [id number] DAVON MONGE knee was taken through range of motion and found to be stable in all planes. At this point, the knee was then instilled with a gram of vancomycin and a gram of tobramycin. The capsule was closed with #2 Ethibond in aqzhuj-md-fnjsm fashion followed by #1 Vicryl, 2-0 Vicryl and skin angie. Sterile dressings were applied. Tourniquet was deflated and a knee immobilizer was applied. The patient was awakened, taken to recovery room in stable condition. All final needle and sponge counts were correct. TRANSINT:[id number] Voice Confirmation ID: [id number] DOCUMENT ID: [id number] BRYAN THOMAS MD at 1047 CC: [id number] DICTATION DATE: 06/03/18927 RETURN TO FACTORY CLERK: 06/03/18956 DIS IN 06/02/[address] [facility] [address] [place] [address]
== END 2018-06-02 11:37 | DRG 468 ==
LOC: D.SDCHOLD 05-30 11:49 → D.MS 05-30 11:49 → D.SDCHOLD 05-30 13:30 → D.MS 05-30 18:24
PROVIDERS: ADMIT Orthopaedic Surgery
PROC: 0SRD0JZ Replacement of Left Knee Joint with Synthetic Substitute, Open Approach (ICD-10-PCS; 2018-05-30)
PROC: 0SPD08Z Removal of Spacer from Left Knee Joint, Open Approach (ICD-10-PCS; principal; 2018-05-30 13:30)
DX: Z47.32 Aftercare following explantation of hip joint prosthesis (principal); I10 Essential (primary) hypertension; K21.9 Gastro-esophageal reflux disease without esophagitis; I48.91 Unspecified atrial fibrillation

== ENCOUNTER 2018-07-31 15:14 | Inpatient (IN) | payer MEDICARE, OTHER ==
[~2018-07-31] VITALS: Ht 180.3 cm; Wt 142.3 kg
[~2018-07-31 15:14] MED LIST changes: +PERCOCET 10-321 EAC1 PO
[2018-07-31] MEDS ORDERED: BAYER CHEWABLE81 MG PO (15:35)
[2018-07-31] MEDS ORDERED: SYNTHROID200 MC1 PO (15:35)
[2018-07-31] MEDS ORDERED: FERROUS SULFAT325 MG PO (15:36)
[2018-07-31 15:53] LABS: BASOPHILS 0.3 % (0-2); EOSINOPHILS 3.2 % (0-7); HEMATOCRIT 40.7 % (42.0-54.0); HEMOGLOBIN 13.1 g/dL (13.5-17.5); IMMATURE GRANULOCYTES 0.6 % (0-5); LYMPHOCYTES 17.5 % (15-50); MCH 27.3 pg (26.0-34.0); MCHC 32.2 g/dL (31.0-37.0); MEAN PLATELET VOLUME 9.2 fL (7.4-10.4); MONOCYTES 8.3 % (2-11); NEUTROPHILS 70.1 % (40-80); PLATELET COUNT 213 10x3/uL (130-400); RBC 4.79 10x6/uL (4.20-6.10); RDW 15.5 % (11.5-14.5); WBC 9.6 10x3/uL (4.8-10.8)
[2018-07-31 16:01] LABS: APTT 34.1 SECONDS (22.8-39.4); INR 1.17 (0.85-1.17); PROTIME 14.4 SECONDS (11.6-15.0)
[2018-07-31 16:09] LABS: ALBUMIN 3.8 g/dL (3.4-5.0); ALKALINE PHOSPHATASE 149 U/L (46-116); ALT (SGPT) 22 U/L (10-68); BILIRUBIN - TOTAL 0.57 mg/dL (0.2-1.3); CALC OSMOLALITY 279 mosm/kg (275-300); CARBON DIOXIDE 33.2 mmol/L (21.0-32.0); CHLORIDE - SERUM 102 mmol/L (98-107); CREATININE - SERUM 0.9 mg/dL (0.6-1.3); GLUCOSE 116 mg/dL (74-106); PROTEIN - SERUM 7.9 g/dL (6.4-8.2); SODIUM 139 mmol/L (136-145); UREA NITROGEN 15 mg/dL (7-18); eGFR NON AFRICAN AMERICAN 89 mL/min (90-120)
[2018-07-31 16:23] LABS: CKMB 0.7 U/L (0.0-3.6); CREATINE KINASE 50 UL (21-232)
[2018-07-31 16:27] LABS: TROPONIN-I < 0.017 ng/mL (0.000-0.060)
[2018-07-31 17:54] LABS: APPEARANCE CLEAR (CLEAR); BILIRUBIN NEGATIVE (NEGATIVE); COLOR YELLOW (YELLOW); GLUCOSE NEGATIVE (NEGATIVE); KETONE NEGATIVE (NEGATIVE); NITRITE NEGATIVE (NEGATIVE); PROTEIN NEGATIVE (NEGATIVE); UROBILINOGEN NORMAL (NORMAL)
--- NOTE | 2018-07-31 20:12 | NUR ---
PT RECEIVED TO 2128 @190 VIA WHEELCHAIR, A&O X4, AT BEDSIDE, DENIES ANY NEEDS AT THIS TIME, BED IS LOW, SRX1, CALL LIGHT IN REACH, WILL CONTINUE PLAN OF CARE
[2018-07-31 20:33] VITALS: BP 151/78
[2018-08-01] VITALS (7 sets, daily range): BP systolic 119–162; BP diastolic 61–78; Ht 180.3 cm; Wt 142.3 kg
--- NOTE | 2018-08-01 04:26 | NUR ---
PANTS PRESSER AUTOMATIC ASSESSMENT COMPLETED.
[2018-08-01 06:28] LABS: CALC OSMOLALITY 284 mosm/kg (275-300); CALCIUM 8.8 mg/dL (8.5-10.1); CARBON DIOXIDE 31.7 mmol/L (21.0-32.0); CHLORIDE - SERUM 106 mmol/L (98-107); CREATININE - SERUM 0.8 mg/dL (0.6-1.3); GLUCOSE 113 mg/dL (74-106); POTASSIUM - SERUM 3.8 mmol/L (3.5-5.1); SODIUM 142 mmol/L (136-145); UREA NITROGEN 16 mg/dL (7-18); eGFR NON AFRICAN AMERICAN > 90 mL/min (90-120)
[2018-08-01 06:59] LABS: BASOPHILS 0.5 % (0-2); HEMATOCRIT 38.2 % (42.0-54.0); IMMATURE GRANULOCYTES 0.8 % (0-5); LYMPHOCYTES 22.6 % (15-50); MCH 26.6 pg (26.0-34.0); MCHC 31.4 g/dL (31.0-37.0); MCV 84.7 fL (80.0-100.0); MEAN PLATELET VOLUME 9.5 fL (7.4-10.4); MONOCYTES 10.5 % (2-11); NEUTROPHILS 61.6 % (40-80); PLATELET COUNT 211 10x3/uL (130-400); RBC 4.51 10x6/uL (4.20-6.10); RDW 15.7 % (11.5-14.5); WBC 8.6 10x3/uL (4.8-10.8)
--- NOTE | 2018-08-01 07:26 | NUR ---
REPORT RECEIVED. WILL CONTINUE WITH POC. PT CURRENTLY LYING SEMI FOWLERS. CALL LIGHT W/I REACH. PT IS AAO AND UP AD IAM. RR EVEN AND UNLABORED ON RA. NS INFUSING @100ML/HR VIA R.WRIST PIV. NO S/S OF DISTRESS NOTED. PT DENIES ANY NEEDS AT THIS TIME. WILL CTM.
[2018-08-01 10:21] LABS: ERYTHROCYTE SEDIMENTATION RATE 18 mm/hr (0-20)
--- NOTE | 2018-08-01 11:05 | NUR ---
I have reviewed this patient and I concur with the Shift Assessment completed by the Licensed Practical Nurse today this shift.
--- NOTE | 2018-08-01 20:00 | NUR ---
PT ARRIVED TO THE FLOOR. ALERT AND ORIENTED. NO SIGNS OF DISTRESS. BREATHING EVEN AND UNLABORED. PT STATES NO PROBLEMS AT THIS TIME. IV SITE LT UPPER ARM DRESSING CLEAN DRY AND INTACT. NO SIGNS OF INFECTION. BOWEL SOUNDS ACTIVE. SOME LOWER LEG SWELLING LT LOWER LEG. WILL CONTINUE PLAN OF CARE. CALL LIGHT IN REACH. BED LOWERED AND LOCKED.
[2018-08-02 00:26] VITALS: BP 148/74
[2018-08-02 04:38] VITALS: BP 134/62
[2018-08-02 06:09] LABS: BASOPHILS 0.4 % (0-2); EOSINOPHILS 4.4 % (0-7); HEMATOCRIT 38.1 % (42.0-54.0); HEMOGLOBIN 12.1 g/dL (13.5-17.5); IMMATURE GRANULOCYTES 0.7 % (0-5); LYMPHOCYTES 23.6 % (15-50); MCH 26.8 pg (26.0-34.0); MCHC 31.8 g/dL (31.0-37.0); MCV 84.3 fL (80.0-100.0); MEAN PLATELET VOLUME 9.5 fL (7.4-10.4); NEUTROPHILS 60.9 % (40-80); PLATELET COUNT 189 10x3/uL (130-400); RBC 4.52 10x6/uL (4.20-6.10); RDW 15.7 % (11.5-14.5); WBC 7.3 10x3/uL (4.8-10.8)
[2018-08-02 07:05] LABS: CALC OSMOLALITY 287 mosm/kg (275-300); CALCIUM 8.7 mg/dL (8.5-10.1); CARBON DIOXIDE 29.2 mmol/L (21.0-32.0); CHLORIDE - SERUM 106 mmol/L (98-107); CREATININE - SERUM 0.8 mg/dL (0.6-1.3); GLUCOSE 102 mg/dL (74-106); POTASSIUM - SERUM 4.4 mmol/L (3.5-5.1); SODIUM 144 mmol/L (136-145); UREA NITROGEN 14 mg/dL (7-18); eGFR NON AFRICAN AMERICAN > 90 mL/min (90-120)
[2018-08-02 08:44] VITALS: BP 126/68
[2018-08-02 12:30] VITALS: BP 157/66
--- NOTE | 2018-08-02 13:49 | NUR ---
PT SITTING UP AT SIDE OF BEED, NO NEEDS VOICED, NO S/S OF DISTRESS, CONTINUE WITH PLAN OF CARE
[2018-08-02 15:38] VITALS: BP 121/53
--- NOTE | 2018-08-02 19:30 | NUR ---
RECEIVED REPORT, ASSUMED CARE, A&O, DENIES NEEDS, NO S/S OF DISTRESS NOTED, CALL LIGHT IN REACH, BED LOWEST POSITION, WILL CONTINUE POC
[2018-08-02 22:16] VITALS: BP 127/37
[2018-08-03 04:51] VITALS: BP 119/92
[2018-08-03 07:14] LABS: CALC OSMOLALITY 284 mosm/kg (275-300); CALCIUM 9.2 mg/dL (8.5-10.1); CARBON DIOXIDE 30.3 mmol/L (21.0-32.0); CHLORIDE - SERUM 103 mmol/L (98-107); CREATININE - SERUM 0.8 mg/dL (0.6-1.3); GLUCOSE 109 mg/dL (74-106); POTASSIUM - SERUM 4.1 mmol/L (3.5-5.1); SODIUM 142 mmol/L (136-145); UREA NITROGEN 14 mg/dL (7-18); eGFR NON AFRICAN AMERICAN > 90 mL/min (90-120)
[2018-08-03 07:22] LABS: BASOPHILS 0.2 % (0-2); EOSINOPHILS 4.7 % (0-7); HEMATOCRIT 42.3 % (42.0-54.0); HEMOGLOBIN 13.4 g/dL (13.5-17.5); IMMATURE GRANULOCYTES 0.7 % (0-5); LYMPHOCYTES 21.6 % (15-50); MCH 26.9 pg (26.0-34.0); MCHC 31.7 g/dL (31.0-37.0); MCV 84.9 fL (80.0-100.0); MEAN PLATELET VOLUME 9.6 fL (7.4-10.4); MONOCYTES 7.2 % (2-11); NEUTROPHILS 65.6 % (40-80); RBC 4.98 10x6/uL (4.20-6.10); RDW 15.8 % (11.5-14.5); WBC 8.6 10x3/uL (4.8-10.8)
[2018-08-03 07:24] LABS: PLATELET COUNT 252 10x3/uL (130-400)
--- NOTE | 2018-08-03 07:45 | NUR ---
MORNING ASSESSMENT COMPLETE. SEE ASSESSMENT FLOWSHEET FOR FURTHER DETAILS. PT LYING IN BED AAO X4 TO PERSON, PLACE, TIME, AND SITUATION. DENIES NEEDS AT THIS TIME. CL IN REACH. SIDE RAILS UP X3 FOR PT SAEFTY. BED IN LOWEST POSITION.
[2018-08-03 08:30] VITALS: BP 123/64
[2018-08-03 11:56] VITALS: BP 146/52
[2018-08-03] MEDS ORDERED: KEFLEX500 MG PO (12:08)
--- NOTE | 2018-08-03 13:12 | MORECARE ---
CASE MANAGEMENT DISCHARGE SUMMARY PATIENT: DAVON MONGE UNIT: [id number] ADM DATE: 07/31/18 AGE: 72 : [birth year] SEX: M ROOM/BED: D.2220 AUTHOR: EMMA EASLEY PHYSICIAN: REFERRING PHYSICIAN: BRYAN THOMAS MD DATE OF SERVICE: 08/03/18 Discharge Plan Patient Name: DAVON MONGE Facility: [facility]:[place] : 1945 Planned Disposition: Home Anticipated Discharge Date: Discharge Date: Expected LOS: Initial Reviewer: [email or web address] Initial Review Date: 07/31/2018 Generated: 08/03/18 2:12 pm DCPIA - Discharge Planning Initial Assessment Updated by PRADEEP: Zelda Villarreal on 08/03/18 1:11 pm * Is the patient Alert and Oriented? Yes * How many steps to enter\exit or inside your home? * PCP MICHAEL * Preadmission Environment Home with Family * ADLs Independent * Equipment Crutch Power Chair or Electric Scooter Rolling Walker Walker Wheelchair * List name and contact numbers for known caregivers / representatives who currently or will assist patient after discharge: HEATHER MONGE () [phone] * Verbal permission to speak to the caregivers and representatives has been obtained from the patient. N/A * Community resources currently utilized None * Additional services required to return to the preadmission environment? No * Can the patient safely return to the preadmission environment? Yes * Has this patient been hospitalized within the prior 30 days at any hospital? No Coverage Notice Reviewer: [id number] - Zelda Villarreal Notice Issued Date-Time: 08/03/2018 13:00 Notice Type: IM Discharge Notice Notice Delivered To: Patient Relationship to Patient: Sanitation Engineer Name: Delivery Method: HAND - Hand Delivered Jessica Days: Prior Verbal Notification: Recipient Understood Notice: Yes Recipient Signature: Yes Med Rec Note Co-signed by Attending: Coverage Notice Comment: Patient Name: DAVON MONGE Page [phone] at 1312 All edits/amendments must be made on the electronic document DICTATION DATE: 08/03/18 1312 INTENSIVE CARE AMBULANCE PARAMEDIC: CECILIA 08/03/18 1312 RPT#: [id number] DC DATE: STATUS: ADM IN [facility] [address] [place] [address] END OF REPORT
--- NOTE | 2018-08-03 13:19 | MORECARE ---
CASE MANAGEMENT DISCHARGE SUMMARY PATIENT: DAVON MONGE UNIT: [id number] ADM DATE: 07/31/18 AGE: 72 : [birth year] SEX: M ROOM/BED: D.2220 AUTHOR: KAUSHAL,DOC PHYSICIAN: REFERRING PHYSICIAN: BRYAN THOMAS MD DATE OF SERVICE: 08/03/18 Discharge Plan Patient Name: DAVON MONGE Facility: [facility]:[place] : 1945 Planned Disposition: Home Anticipated Discharge Date: Discharge Date: Expected LOS: Initial Reviewer: [email or web address] Initial Review Date: 07/31/2018 Generated: 08/03/18 2:19 pm Comments DCP- Discharge Planning Updated by [email or web address]: Zelda Villarreal on 08/03/18 12:[address] Patient Name: DAVON MONGE Admission Status: ER Accout number: [id number] Admission Date: 07-31-2018 : 1945 Admission Diagnosis:CELLULITIS OF LEFT LOWER LIMB Attending: BRYAN THOMAS Current LOS: 3 Anticipated DC Date: Planned Disposition: Home Primary Insurance: MEDICARE A & B Discharge Planning Comments: CM met with patient to assess discharge planning needs. Patient lives independently at home where he is plans to return today. His will be his tow motor driver home. IMM served. He has a walker, wheelchair, electric wheelchair, cane, crutches. He denies any needs at this time. IMM served and explained. CM will continue to follow and assist with dc planning as needed Em Physician: Zelda Villarreal DCPIA - Discharge Planning Initial Assessment Updated by [email or web address]: Zelda Villarreal on 08/03/18 1:11 pm * Is the patient Alert and Oriented? Yes * How many steps to enter\exit or inside your home? * PCP MICHAEL * Preadmission Environment Home with Family * ADLs Independent * Equipment Crutch Power Chair or Electric Scooter Rolling Walker Walker Wheelchair * List name and contact numbers for known caregivers / representatives who currently or will assist patient after discharge: HEATHER MONGE () [phone] * Verbal permission to speak to the caregivers and representatives has been obtained from the patient. N/A * Community resources currently utilized None * Additional services required to return to the preadmission environment? No * Can the patient safely return to the preadmission environment? Yes * Has this patient been hospitalized within the prior 30 days at any hospital? No Coverage Notice Reviewer: [email or web address] Isha Villarreal Notice Issued Date-Time: 08/03/2018 13:00 Notice Type: IM Discharge Notice Notice Delivered To: Patient Relationship to Patient: Medical Lead Name: Delivery Method: HAND - Hand Delivered Jessica Days: Prior Verbal Notification: Recipient Understood Notice: Yes Recipient Signature: Yes Med Rec Note Co-signed by Attending: Coverage Notice Comment: Last DP export: 08/03/18 12:12 p Patient Name: DAVON MONGE Page [phone] at 1319 All edits/amendments must be made on the electronic document DICTATION DATE: 08/03/181317 MEDICAL SUPPLY TECHNICIAN: CECILIA 08/03/188 RPT#: [id number] DC DATE: STATUS: ADM IN [facility] [address] [place] [address] END OF REPORT
== END 2018-08-03 14:16 | disposition home or self-care (01) | DRG 603 ==
LOC: D.ER 15:14 → D.EDHOLD 17:38 → D.M2 17:38 → D.MS 17:38 → D.M2 17:44 → D.MS 08-01 20:02
PROVIDERS: Family Medicine; Internal Medicine Nephrology; ADMIT Orthopaedic Surgery; ATTEND Orthopaedic Surgery
PROC: 05HY33Z Insertion of Infusion Device into Upper Vein, Percutaneous Approach (ICD-10-PCS; principal; 2018-08-01)
DX: L03.116 Cellulitis of left lower limb (principal); D64.9 Anemia, unspecified; I10 Essential (primary) hypertension; E78.5 Hyperlipidemia, unspecified; I25.10 Atherosclerotic heart disease of native coronary artery without angina pectoris; Z95.5 Presence of coronary angioplasty implant and graft; I48.91 Unspecified atrial fibrillation; G47.33 Obstructive sleep apnea (adult) (pediatric); K21.9 Gastro-esophageal reflux disease without esophagitis; Z86.19 Personal history of other infectious and parasitic diseases

== ENCOUNTER → 2018-09-13 10:51 | Outpatient (CLI) | payer MEDICARE, OTHER ==
[2018-08-01 02:24] VITALS: BMI 42.3
[~2018-09-13 10:51] MED LIST changes: +FERROUS SULFAT325 MG PO; +KEFLEX500 MG PO; +SYNTHROID200 MC1 PO
== END | disposition home or self-care (01) ==
LOC: D.US 10:51
PROVIDERS: ATTEND Clinical Nurse Specialist Family Health
DX: M79.89 Other specified soft tissue disorders (principal)

== ENCOUNTER → 2018-09-26 16:33 | Outpatient (CLI) | payer MEDICARE, OTHER ==
[2018-08-01 02:24] VITALS: BMI 42.3
[2018-09-26 17:15] LABS: BASOPHILS 0.4 % (0-2); EOSINOPHILS 4.7 % (0-7); HEMOGLOBIN 13.3 g/dL (13.5-17.5); IMMATURE GRANULOCYTES 1.2 % (0-5); LYMPHOCYTES 28.6 % (15-50); MCH 28.5 pg (26.0-34.0); MCHC 32.4 g/dL (31.0-37.0); MEAN PLATELET VOLUME 9.6 fL (7.4-10.4); NEUTROPHILS 53.1 % (40-80); PLATELET COUNT 219 10x3/uL (130-400); RBC 4.66 10x6/uL (4.20-6.10); WBC 6.8 10x3/uL (4.8-10.8)
[2018-09-26 18:50] LABS: ERYTHROCYTE SEDIMENTATION RATE 26 mm/hr (0-20)
== END | disposition home or self-care (01) ==
LOC: D.LABREF 16:33
PROVIDERS: ATTEND Orthopaedic Surgery
DX: L03.116 Cellulitis of left lower limb (principal)

== ENCOUNTER → 2018-09-28 08:37 | Outpatient (CLI) | payer MEDICARE, OTHER ==
[2018-08-01 02:24] VITALS: BMI 42.3
== END | disposition home or self-care (01) ==
LOC: D.HCCARDIO 08:37
PROVIDERS: ATTEND Internal Medicine Cardiovascular Disease
DX: I25.10 Atherosclerotic heart disease of native coronary artery without angina pectoris (principal)

== ENCOUNTER 2018-10-17 10:37 | Outpatient (CLI) | payer MEDICARE, OTHER ==
[~2018-10-17] VITALS: Ht 180.3 cm; Wt 147.7 kg
--- NOTE | ~2018-10-17 | HEMODYNAMI ---
PATIENT:DAVON MONGE MEDICAL RECORD: [id number] : 49 LOCATION:[facility] ADMISSION DATE: 10/17/18 Generatedon:10/17/201813:23 Patient name: DAVON MONGE Patient #: [id number] S SN: : 1945 Date of study: 10/17/2018 Page: Of Hemodynamic Procedure Report Patient Data Patient Demographics Procedure consent was obtained First Name: DAVON Gender: Male Last Name: SALEEM : 1945 Patient #: [id number] Age: 73 year(s) Race: Additional ID: [id number] Contact details [address]: [address] [place] [address] State: [place] City: [place] Zip code: [address] Past Medical History History of disease Date Diagnosis Comments Sleep apnea Hypertension Allergies: No known allergies Admission Admission Data Admission Date: 10/17/2018 Admission Time: 10:37 Height (in.): 57.87 BSA: 2.43 (m2) Height (cm.): 147 BMI: 83.3 (kg/m2) Weight (lbs.): 396.83 Weight (kg.): 180 Lab Results Lab Result Date: 10/17/2018 Lab Result Time: 0:00 Biochemistry Name Units Result Min Max BUN mg/dl 18 --(---*)-- 7 18 Creatinine mg/dl 0.7 --(*---)-- 0.6 1.3 CBC Name Units Result Min Max Hemoglobin g/dl 13.2 -*(----)-- 13.5 17.5 Procedure Procedure Types Cath Procedure Diagnostic Procedure [facility] w/Coronaries Procedure Description Procedure Date Procedure Date: 10/17/2018 Procedure Start Time: 13:08 Procedure End Time: 13:22 Procedure Staff Name Function Avni Trejo MD Performing Physician Cher Singh RT Monitor Evelyn Wang RN Nurse Jeni Agarwal RT Scrub Procedure Data Cath Procedure Fluoroscopy Diagnostic fluoroscopy Total fluoroscopy Time: 2.2 time: 2.2 min min Diagnostic fluoroscopy Total fluoroscopy dose: dose: 1240 mGy 1240 mGy Contrast Material Contrast Material Type Amount (ml) Isovue 300 81 Entry Location Entry Primary Successful Side Size Upsize Upsize Entry Closure Clark ccessful Closure Location (Fr) 1 (Fr) 2 (Fr) Remarks Device Remarks Radial Right 6 Fr Mechanical artery Short Compression Estimated blood loss: 5 ml Diagnostic catheters Device Type Used For End Catheter Placement DIAGNOSTIC David 110cm Multi-vessel 5Fr catheter ([id number]) Angiography Procedure Complications No complications Procedure Medications Medication Administration Route Dosage 0.9% NaCl I.V. 100 ml/hr Oxygen etCO2 Nasal cannula 2 l/min Lidocaine 2% added to field 20 Heparin Flush Bag added to field 2 bags (1000units/500ml NS) Radial Cocktail added to field 1 syringe (Verapamil 2mg/Nitro 400mcg/Heparin 1500units) Versed I.V. 2 mg Fentanyl I.V. 50 mcg Fentanyl I.V. 50 mcg Hemodynamics Rest BSA: 2.43 (m2) HGB: 13.2 (g/dl) O2 Consumption: Estimated: 302.41 (ml/min) O2 Co nsumption indexed: Estimated:124.45 (ml/min/m) Heart Rate: 93 (bpm) Pressure Samples Time Site Value (mmHg) Purpose Heart Use Rate(bpm) 13:11 LV 128/6,16 Snapshot 80 Gradients Valve Time Site Site Mean SEP/DFP Peak To Heart Use 1 2 (mmHg) (sec/min) Peak Rate (mmHg) (bpm) Aortic 13:12 LV AO 63 Snapshots Pre Cath Intra NCS Post Cath Vital Signs Time Heart Resp SPO2 etCO2 NIBP (mmHg) Rhythm Pain Sedation Rate (ipm) (%) (mmHg) Status Level (bpm) 12:55:30 82 19 100 36.7 176/104(118) NSR 0 (11) 10(A) , No pain 13:00:29 63 12 98 32.9 Measuring NSR 0 (11) 10(A) , No pain 13:01:29 63 10 95 17.9 148/81(109) NSR 0 (11) 10(A) , No pain 13:05:59 62 11 95 8.2 153/87(121) NSR 0 (11) 10(A) , No pain 13:10:58 64 11 96 41.2 Measuring NSR 0 (11) 9(A) , No pain 13:11:43 68 14 98 29.2 165/91(116) NSR 0 (11) 9(A) , No pain 13:16:22 69 18 98 26.9 160/77(100) NSR 0 (11) 9(A) , No pain 13:21:02 67 19 97 8.2 146/78(108) NSR 0 (11) 10(A) , No pain Medications Time Medication Route Dose Verified Delivered Reason Notes E ffectiveness by by 12:53:57 0.9% NaCl I.V. 100 Avni Evelyn used for ml/hr Neil Wang biosecurity officer 12:54:03 Oxygen etCO2 2 l/min Avni Evelyn used for Nasal Neil Wang procedure cannula RN 12:54:08 Lidocaine 2% added 20ml Avni Avni for local to vial Neil Trejo MD anesthetic field 12:54:13 Heparin Flush added 2 bags Avni Avni used for Bag to Neil Trejo MD procedure (1000units/500ml field NS) 12:54:21 Radial Cocktail added 1 Avni Avni used for (Verapamil to syringe Neil Trejo MD procedure 2mg/Nitro field 400mcg/Heparin 1500units) 13:01:47 Versed I.V. 2 mg Avni Evelyn for Neil Wang sedation RN 13:01:58 Fentanyl I.V. 50 mcg Avni Evelyn for Neil Wang sedation RN 13:06:30 Fentanyl I.V. 50 mcg Avni Evelyn for Neil Wang sedation teacher emotionally impaired Log Time Note 12:23:27 Patient Height : 57.87 inches 12:23:32 Patient Weight : 396.83 lbs 12:24:00 Lab Result : Hemoglobin 13.2 g/dl 12:24:00 Lab Result : Creatinine 0.7 mg/dl 12:24:00 Lab Result : BUN 18 mg/dl 12:24:25 Diagnostic Cath status Elective 12:24:28 Cher Singh RT(R) sent for patient. Start room use. 12:24:29 Time tracking: Regular hours (M-F 7:00 - 5:00) 12:24:35 Plan of Care:Hemodynamics will remain stable., Cardiac rhythm will remain stable., Comfort level will be maintained., Respiratory function will remain adequate., Patient/ family verbilizes understanding of procedure., Procedure tolerated without complication., Recovers from procedure without complications.. 12:25:51 1) 90+ Normal kidney functon but urine findings or structural abnormalities or genetic trait point to kidney disease. 12:26:31 Maximum allowable contrast does (3.7 X eGFR X 0.75)249.75 ml. 12:47:07 Patient received from Pre/Post Procedure Room to CCL 2 Alert and oriented. Tansferred to table in Supine position. 12:47:09 Warm blankets applied, and jamal hugger turned on for patient comfort. 12:47:09 Correct patient and procedure confirmed by team. 12:47:10 Signed procedure consent form obtained from patient. 12:47:11 ECG and BP/O2 sat monitors applied to patient. 12:53:47 Vital chart was started 12:53:57 0.9% NaCl 100 ml/hr I.V. was administered by Evelyn Wang RN; used for procedure; 12:54:03 Oxygen 2 l/min etCO2 Nasal cannula was administered by Evelyn Wang RN; used for procedure; 12:54:08 Lidocaine 2% 20ml vial added to field was administered by Avni Trejo MD; for local anesthetic; 12:54:13 Heparin Flush Bag (1000units/500ml NS) 2 bags added to field was administered by Avni Trejo MD; used for procedure; 12:54:21 Radial Cocktail (Verapamil 2mg/Nitro 400mcg/Heparin 1500units) 1 syringe added to field was administered by Avni Trejo MD; used for procedure; 12:58:40 Baseline sample Acquired. 12:58:45 Rhythm: sinus rhythm 12:59:19 Full Disclosure recording started 12:59:22 H&P Date Dictated: 10/17/2018 Within 30 days and on chart., H&P Addendum completed by physician on day of procedure. (MUST COMPLETE FOR ALL OUTPATIENTS). 12:59:24 Pre-procedure instructions explained to patient. 12:59:24 Pre-op teaching completed and patient verbalized understanding. 12:59:26 Family in patients room. 12:59:28 Patient NPO since Midnight. 12:59:30 Is the patient allergic to Iodine/contrast media? No. 12:59:31 Was the patient premedicated? No 12:59:32 Is patient on blood thinner?No 12:59:34 Patient diabetic? No. 12:59:49 Previous problem with sedation/anesthesia? No ? 12:59:59 Snore? Yes 13:00:00 Sleep apnea? Yes 13:00:01 Deviated septum? No 13:00:02 Opens mouth fully? Yes 13:00:03 Sticks out tongue? Yes 13:00:07 Airway obstruction? No ? 13:00:11 Dentures? No ? 13:00:17 Pre procedure: right dorsailis pedis pulse Doppler 13:00:38 Patient pain scale 0/10 ?. 13:00:46 IV patent on arrival in left forearm with 0.9% NaCl at [facility]. 13:00:48 Lab results completed and on chart. 13:00:52 Right Radial & Right Groin area was prepped with chlora-prep and draped in sterile fashion 13:00:53 Alarms reviewed by R. N. 13:00:53 Sharps counted by scrub and verified by R.N. 13:00:55 Physician arrived 13:00:55 --------ALL STOP TIME OUT------ 13:00:55 Final Timeout: patient, procedure, and site verified with staff and physician. All members of the team are in agreement. 13:00:57 Right Radial & Right Groin site verified by team. 13:01:01 Fire Safety Assessment: A--An alcohol-based skin anteseptic being used preoperatively., C--Open oxygen or nitrous oxide is being used., D--An ESU, laser, or fiber-optic light is being used. 13:01:04 Physical assessment completed. ASA score P 2 - A patient with mild systemic disease as per Avni Trejo MD. 13:01:09 Sedation plan: IV Moderate Sedation Medication:Versed, Fentanyl 13:01:16 Use device set Radial Dx or PCI 13:01:17 ACIST Syringe (63760) opened to sterile field. 13:01:18 Medline Cath Pack ([id number]) opened to sterile field. 13:01:18 Bag Decanter (2002S) opened to sterile field. 13:01:19 ACIST Hand Control (35089) opened to sterile field. 13:01:19 ACIST Manifold (31363) opened to sterile field. 13:01:20 Tegaderm 4 x 4 (1626W) opened to sterile field. 13:01:20 MBrace Wrist Support ([id number]) opened to sterile field. 13:01:21 NEEDLE Cook 21G 4cm Radial (T02306) opened to sterile field. 13:01:22 EMERALD Guide Wire (043-028) opened to sterile field. 13:01:23 SHEATH 6FR Slender (63-1063) opened to sterile field. 13:01:47 Versed 2 mg I.V. was administered by Evelyn Wang RN; for sedation; 13:01:58 Fentanyl 50 mcg I.V. was administered by Evelyn Wang RN; for sedation; 13:06:30 Fentanyl 50 mcg I.V. was administered by Evelyn Wang RN; for sedation; 13:08:16 Procedure started. 13:08:28 Local anesthetic to right radial artery with Lidocaine 2% by Avni Trejo MD.INITIAL ACCESS ONLY 13:08:39 A 6 Fr Short sheath was inserted into the Right Radial artery 13:09:47 A DIAGNOSTIC David 110cm 5Fr catheter ([id number]) was advanced over the wire and used for Multi-vessel Angiography. 13:12:01 LV hemodynamics recorded. 13:12:02 LV gram done using DIAZ 13:12:05 Injector settings: Ml/sec: 5, Volume: 15, 13:12:16 EF : 50 % 13:13:17 LCA angiography performed. 13:13:20 Injector settings: Ml/sec: 3, Volume: 6, 13:16:42 RCA angiography performed. 13:16:47 Injector settings: Ml/sec: 3, Volume: 6, 13:19:58 Catheter removed. 13:20:03 TR BAND Standard ([id number]) opened to sterile field. 13:20:59 Sheath removed intact; hemostasis achieved with Mechanical Compression to the Right Radial artery. 13:21:01 Procedure ended.(Physican Out) 13:21:11 Fluoroscopy time 02.20 minutes. 13:21:15 Flurop Dose total: 1240 13:21:15 Fluoroscopy dose: 1240 mGy 13:21:27 Contrast amount:Isovue 300 81ml. 13:21:29 Sharps counted by scrub and verified by R.N. 13:21:35 Insertion/operative site no bleeding no hematoma. 13:21:48 TR band inflated with 10cc of air. 13:21:51 Post Procedure Pulses reassessed and unchanged 13:21:54 Post procedure rhythm: unchanged. 13:21:56 Estimated blood loss: 5 ml 13:21:58 Post procedure instruction explained to patient.Patient verbalizes understanding. 13:21:58 Patient needs reinforcement of post procedure teaching. 13:22:05 Procedure type changed to Cath procedure, Diagnostic procedure, LHC, LHC w/Coronaries 13:22:06 Procedure and supply charges have been captured, reviewed, submitted and are correct. 13:22:10 Procedure Complication : No complications 13:22:13 Vital chart was stopped 13:22:13 See physician's report for complete and final results. 13:22:16 Report given to Pre/Post Procedure Room. 13:22:20 Patient transfered to Pre/Post Procedure Room with Stretcher. 13:22:26 Procedure ended. 13:22:26 Full Disclosure recording stopped 13:22:30 End room use (Document Last) Device Usage Item Name Manufacture Quantity Catalog Hospital Part Current Minimal Lot# / Number Charge Number Stock Stock Serial# Code ACIST Acist 1 60241 134406 909712 940801 20 Syringe Medical (87494) Systems Inc Medline Medline 1 [id number] 415345 45890 776940 5 Cath Pack ([id number]) Bag Microtek 1 2001S 358415 49831 461369 5 Decanter Medical Inc. () ACIST Hand Acist 1 95384 865217 918059 786575 5 Control Medical (66498) Systems Inc ACIST Acist 1 75851 626606 109855 322512 5 Manifold Medical (96884) Systems Inc Tegaderm 4 3M 1 1626W 891326 948603 505880 5 x 4 (1626W) MBrace Advanced 1 140-0250-00 903998 70593 337504 5 Wrist Vascular Support Dynamics ([id number]) NEEDLE alike Medical 1 D92095 204107 936177 371329 5 21G 4cm Radial (B98560) EMERALD Cardinal 1 502-455 919598 036463 365098 5 Guide Wire [facility] (502455) SHEATH 6FR Terumo 1 [id number] 712337 845653 338018 5 Slender (16-6190) DIAGNOSTIC Terumo 1 40-3320 437602 954891 614223 5 David 110cm 5Fr catheter (018343) TR BAND Terumo 1 [id number] 610730 546822 257611 40 Standard ([id number]) Signature Audit [place] Stage Time Signature Unsigned Intra-Procedure 10/17/2018 Cher Singh 1:23:20 PM RT(R) Signatures Monitor : Cher Singh RT Signature : Date : Time : [facility] [address] [place] [address]
[2018-10-17] MEDS ORDERED: COLACE100 MG PO (10:59)
[2018-10-17] MEDS ORDERED: VITAMIN D31000 UNI2 PO (11:00)
[2018-10-17 11:09] VITALS: BP 140/66; Ht 180.3 cm; Wt 147.7 kg
[2018-10-17 11:17] LABS: BASOPHILS 0.6 % (0-2); EOSINOPHILS 4.2 % (0-7); HEMATOCRIT 40.1 % (42.0-54.0); HEMOGLOBIN 13.2 g/dL (13.5-17.5); IMMATURE GRANULOCYTES 0.7 % (0-5); LYMPHOCYTES 30.6 % (15-50); MCH 28.9 pg (26.0-34.0); MCHC 32.9 g/dL (31.0-37.0); MCV 87.7 fL (80.0-100.0); MEAN PLATELET VOLUME 9.6 fL (7.4-10.4); MONOCYTES 8.8 % (2-11); NEUTROPHILS 55.1 % (40-80); PLATELET COUNT 184 10x3/uL (130-400); RBC 4.57 10x6/uL (4.20-6.10); WBC 7.1 10x3/uL (4.8-10.8)
[2018-10-17 11:22] LABS: CALC OSMOLALITY 280 mosm/kg (275-300); CALCIUM 9.1 mg/dL (8.5-10.1); CARBON DIOXIDE 28.6 mmol/L (21.0-32.0); CHLORIDE - SERUM 104 mmol/L (98-107); CREATININE - SERUM 0.7 mg/dL (0.6-1.3); GLUCOSE 91 mg/dL (74-106); POTASSIUM - SERUM 4.3 mmol/L (3.5-5.1); SODIUM 140 mmol/L (136-145); UREA NITROGEN 18 mg/dL (7-18); eGFR NON AFRICAN AMERICAN > 90 mL/min (90-120)
--- NOTE | 2018-10-17 13:25 | NUR ---
PT RECEIVED VIA STRETCHER FOR RECOVERY, PT PLACED ON MONITORS. IV PATENT INFUSING VIA ORDERS TO L HAND. TR BAND AND IMMOBILIZER TO R WRIST, DRESSING CDI NO BLEEDING OR SWELLING NOTED. ARM PINK AND WARM, CAP REFILL BRISK. HR SINUS CAPO, RATE 58, BP 143/70, O2 PLACED AT 2L/NC, SAT 97%. PT SLEEPING BUT VERBALLY AROUSABLE, PT INSTRUCTED NOT TO USE R ARM, HE VERBALIZED UNDERSTANDING. CALL LIGHT IN REACH, AT BEDSIDE. DR DOWD AT BEDSIDE, SPOKE WITH REGARDING PROCEDURE RESULTS AND PLAN OF CARE.
--- NOTE | 2018-10-17 13:45 | NUR ---
PT SLEEPING COMFORTABLY, TR BAND IN PLACE, NO BLEEDING OR HEMATOMA NOTED. ARM PINK AND WARM, CAP REFILL BRISK. VSS. AT BEDSIDE, CALL LIGHT IN REACH
--- NOTE | 2018-10-17 14:15 | NUR ---
PT MORE AWAKE, DENIES PAIN OR DISCOMFORT. TOLERATING FLUIDS. TR BAND AND IMMOBILIZER IN PLACE, NO BLEEDING OR HEMATOMA NOTED. EXTREMITY WARM AND PINK. VSS. CALL LIGHT IN REACH, REMAINS AT BEDSIDE.
--- NOTE | 2018-10-17 14:45 | NUR ---
4CC AIR REMOVED FROM TR BAND, SMALL AMOUNT OF BLEEDING NOTED, 3 CC AIR REPLACED. NO ADD'L BLEEDING NOTED. PT DENIES PAIN OR NEEDS AT THIS TIME. OFFERED SANDWICH TRAY, PT STATED HE WAS GOING TO EAT AFTER DISCHARGE. CALL LIGHT IN REACH
--- NOTE | 2018-10-17 15:04 | NUR ---
5CC AIR REMOVED FROM TR BAND W/O BLEEDING NOTED. NO HEMATOMA OR SWELLING NOTED. VSS, EXTREMITY REMAINS WARM AND PINK, CAP REFILL BRISK.
--- NOTE | 2018-10-17 15:20 | NUR ---
3 ADD'L CC AIR REMOVED FROM TR BAND, NO BLEEDING NOTED. DISCHARGE INSTRUCTIONS REVIEWED W PT AND , BOTH VERBALIZED UNDERSTANDING. IV REMOVED W CATH INTACT, MONITORS AND O2 REMOVED. PT UP TO DRESS FOR DISCHARGE
--- NOTE | 2018-10-17 15:47 | NUR ---
1535 TR BAND AND REMAINING AIR REMOVED, NO BLEEDING OR HEMATOMA NOTED. 2X2 AND TEGADERM DRESSING APPLIED. PT AMBULATED TO BR, VOIDING W/O DIFFICULITY. 1545 PT DISCHARGED VIA WC TO PRIVATE VEHICLE WITH ALL BELONGINGS.
== END 2018-10-17 15:45 | disposition home or self-care (01) ==
LOC: D.CATH 10:37
PROVIDERS: ATTEND Internal Medicine Cardiovascular Disease
DX: R94.30 Abnormal result of cardiovascular function study, unspecified (principal); I25.119 Atherosclerotic heart disease of native coronary artery with unspecified angina pectoris; R06.02 Shortness of breath

== ENCOUNTER 2019-08-31 03:23 | Observation (INO) | payer MEDICARE, OTHER ==
[~2019-08-31] VITALS: Ht 152.4 cm; Wt 138.3 kg
[~2019-08-31 03:23] MED LIST changes: +CALAN SR120 MG PO; -CALAN120 MG PO; +COLACE100 MG PO; +VITAMIN D31000 UNI2 PO
[2019-08-31] MEDS ORDERED: AMOVIG ×2 (03:37→05:25)
[2019-08-31 03:47] LABS: BASOPHILS 0.1 % (0-2); EOSINOPHILS 0.1 % (0-7); HEMOGLOBIN 13.7 g/dL (13.5-17.5); IMMATURE GRANULOCYTES 0.3 % (0-5); LYMPHOCYTES 10.2 % (15-50); MCH 30.4 pg (26.0-34.0); MCHC 32.6 g/dL (31.0-37.0); MCV 93.1 fL (80.0-100.0); MEAN PLATELET VOLUME 9.7 fL (7.4-10.4); MONOCYTES 3.8 % (2-11); NEUTROPHILS 85.5 % (40-80); PLATELET COUNT 209 10x3/uL (130-400); RBC 4.51 10x6/uL (4.20-6.10); RDW 12.3 % (11.5-14.5); WBC 10.6 10x3/uL (4.8-10.8)
[2019-08-31 03:54] LABS: CALC OSMOLALITY 281 mosm/kg (275-300); CALCIUM 8.9 mg/dL (8.5-10.1); CARBON DIOXIDE 26.6 mmol/L (21.0-32.0); CHLORIDE - SERUM 102 mmol/L (98-107); CREATININE - SERUM 0.9 mg/dL (0.6-1.3); POTASSIUM - SERUM 3.9 mmol/L (3.5-5.1); SODIUM 136 mmol/L (136-145); UREA NITROGEN 18 mg/dL (7-18); eGFR NON AFRICAN AMERICAN 88 mL/min (90-120)
[2019-08-31 03:55] LABS: APTT 28.8 SECONDS (22.8-39.4); INR 0.99 (0.85-1.17)
[2019-08-31 04:00] LABS: GLUCOSE 238 mg/dL (74-106)
[2019-08-31 04:17] LABS: ALBUMIN 4.2 g/dL (3.4-5.0); ALKALINE PHOSPHATASE 119 U/L (30-120); ALT (SGPT) 28 U/L (10-68); BILIRUBIN - TOTAL 0.59 mg/dL (0.2-1.3); CKMB 2.6 U/L (0.0-3.6); CREATINE KINASE 167 UL (21-232); MAGNESIUM - SERUM 1.9 mg/dL (1.8-2.4); PROTEIN - SERUM 7.8 g/dL (6.4-8.2); TROPONIN-I 0.059 ng/mL (0.000-0.060)
[2019-08-31 05:15] VITALS: Ht 152.4 cm; Wt 138.3 kg
[2019-08-31] MEDS ORDERED: BACLOFEN10 MG PO (05:26)
[2019-08-31] MEDS ORDERED: HYDROCODON-ACE1 EA10 PO (05:29)
[2019-08-31] MEDS ORDERED: ZOLOFT100 MG PO (05:31)
[2019-08-31 10:22] LABS: CKMB 4.6 U/L (0.0-3.6); CREATINE KINASE 162 UL (21-232)
[2019-08-31 10:27] VITALS: BP 142/70
[2019-08-31 10:30] LABS: TROPONIN-I 0.787 ng/mL (0.000-0.060)
[2019-08-31 14:00] VITALS: BP 125/69
[2019-08-31 15:45] LABS: CKMB 4.8 U/L (0.0-3.6); CREATINE KINASE 141 UL (21-232)
[2019-08-31 17:24] VITALS: BP 125/72
--- NOTE | 2019-08-31 19:32 | NUR ---
PATIENT IS ALERT AND ORIENTED, RESTING COMFORTABLY IN BED. RESPIRATIONS ARE EVEN AND UNLABORED. NO S/S OF DISTRESS. NO C/O PAIN. CALL LIGHT WITHIN REACH. WILL CPOC.
[2019-08-31 20:00] VITALS: BP 149/85
[2019-08-31 22:22] LABS: CKMB 3.5 U/L (0.0-3.6); CREATINE KINASE 112 UL (21-232)
[2019-08-31 22:25] LABS: TROPONIN-I 0.492 ng/mL (0.000-0.060)
[2019-09-01 00:35] VITALS: BP 147/81
--- NOTE | 2019-09-01 03:42 | NUR ---
I have reviewed this patient and I concur with the Shift Assessment completed by the Licensed Practical Nurse today this shift.
[2019-09-01 04:00] VITALS: BP 149/84
--- NOTE | 2019-09-01 07:15 | NUR ---
RECEIVED PT SITTING ONSIDE OF BED AAOX4 RESP UNLABORED SKIN W/D COLOR WNL DENIES ANY NEEDS OR DISCOMFORT
[2019-09-01 07:57] VITALS: BP 123/69
[2019-09-01 09:37] LABS: BASOPHILS 0.6 % (0-2); EOSINOPHILS 3.4 % (0-7); HEMOGLOBIN 13.7 g/dL (13.5-17.5); IMMATURE GRANULOCYTES 0.6 % (0-5); LYMPHOCYTES 26.6 % (15-50); MCH 30.1 pg (26.0-34.0); MCHC 31.9 g/dL (31.0-37.0); MCV 94.5 fL (80.0-100.0); MEAN PLATELET VOLUME 9.6 fL (7.4-10.4); MONOCYTES 8.6 % (2-11); NEUTROPHILS 60.2 % (40-80); PLATELET COUNT 196 10x3/uL (130-400); RBC 4.55 10x6/uL (4.20-6.10); RDW 12.5 % (11.5-14.5); WBC 8.4 10x3/uL (4.8-10.8)
[2019-09-01 09:55] LABS: ALBUMIN 3.5 g/dL (3.4-5.0); ALKALINE PHOSPHATASE 100 U/L (30-120); BILIRUBIN - TOTAL 0.74 mg/dL (0.2-1.3); CALCIUM 8.5 mg/dL (8.5-10.1); CARBON DIOXIDE 29.5 mmol/L (21.0-32.0); CHLORIDE - SERUM 104 mmol/L (98-107); CREATININE - SERUM 0.9 mg/dL (0.6-1.3); POTASSIUM - SERUM 4.1 mmol/L (3.5-5.1); PROTEIN - SERUM 6.8 g/dL (6.4-8.2); SODIUM 138 mmol/L (136-145); UREA NITROGEN 16 mg/dL (7-18); eGFR NON AFRICAN AMERICAN 88 mL/min (90-120)
[2019-09-01 09:57] LABS: ALT (SGPT) 16 U/L (10-68); CALC OSMOLALITY 280 mosm/kg (275-300); GLUCOSE 171 mg/dL (74-106)
[2019-09-01 11:21] VITALS: BP 127/67
--- NOTE | 2019-09-01 16:04 | NUR ---
REVIEWED DISCHARGE INSTUCTIONS WITH PT STATES UNDERSTANDING COPY GIVEN DCD SALINE LOCK TO RFA WITH IV CATHETER INTACT SITE FREE OF REDNESS OR EDEMA PT DISCHARGED HOME LEFT UNIT VIA W/C WITH ALL PERSONAL BELONGINGS IN STABLE CONDITION
--- NOTE | 2019-09-01 16:57 | MORECARE ---
CASE MANAGEMENT DISCHARGE SUMMARY PATIENT: DAVON MONGE UNIT: [id number] ADM DATE: 08/31/19 AGE: 74 : [birth year] SEX: M ROOM/BED: D.2115 AUTHOR: EMMA EASLEY PHYSICIAN: REFERRING PHYSICIAN: CHAPITO FRENCH MD DATE OF SERVICE: 09/01/19 Discharge Plan Patient Name[facility] MON[facility] 1945 Planned Disposition: Anticipated Discharge Date: Discharge Date: 09/01/2019 Expected LOS: 0 Initial Reviewer: [email or web address] Initial Review Date: 09/01/2019 Generated: 09/01/19 5:56 pm Coverage Notice Reviewer: [email or web address] - Melanie Deleon Notice Issued Date-Time: 08/31/2019 15:20 Notice Type: Medicare Outpatient Observation Notice Notice Delivered To: Patient Relationship to Patient: Self Procurement Coordinator Name: Delivery Method: HAND - Hand Delivered Jessica Days: Prior Verbal Notification: Recipient Understood Notice: Yes Recipient Signature: Yes Med Rec Note Co-signed by Attending: Coverage Notice Comment: RODRÍGUEZ explained, signed, given, copy placed in Mr Patient Name: DAVON MONGE Page [id number] at 1657 All edits/amendments must be made on the electronic document DICTATION DATE: 09/01/191655 FACILITIES MAINTENANCE ASSISTANT: CECILIA 09/01/191655 RPT#: [id number] DC DATE:09/01/19 STATUS: DIS IN [facility] [address] [place] [address] END OF REPORT
== END 2019-09-01 16:03 | disposition home or self-care (01) ==
LOC: D.ER 03:23 → OBSVTIME 03:42 → D.M2 03:42 → D.SDCHOLD 09-01 15:36 → D.M2 09-01 15:38
PROVIDERS: Family Medicine; ADMIT Internal Medicine Nephrology; ATTEND Internal Medicine Nephrology
DX: I25.110 Atherosclerotic heart disease of native coronary artery with unstable angina pectoris (principal); I10 Essential (primary) hypertension; E78.5 Hyperlipidemia, unspecified; I48.91 Unspecified atrial fibrillation; G47.33 Obstructive sleep apnea (adult) (pediatric); E03.9 Hypothyroidism, unspecified; K21.9 Gastro-esophageal reflux disease without esophagitis; G89.29 Other chronic pain; G47.10 Hypersomnia, unspecified

== ENCOUNTER 2019-12-20 02:09 | Emergency (ER) | payer MEDICARE, OTHER ==
[~2019-12-20] VITALS: Ht 180.3 cm; Wt 134.1 kg
[~2019-12-20 02:09] MED LIST changes: +AMOVIG; +HYDROCODON-ACE1 EA10 PO
[2019-12-20 02:12] VITALS: Ht 180.3 cm; Wt 134.1 kg
[2019-12-20] MEDS ORDERED: MORPHINE IMMEDI15 MG PO (03:37)
[2019-12-20 03:59] VITALS: BP 187/95
== END 2019-12-20 04:00 | disposition home or self-care (01) ==
LOC: D.ER 02:09
DX: T85.848A Pain due to other internal prosthetic devices, implants and grafts, initial encounter (principal); I10 Essential (primary) hypertension; Z95.5 Presence of coronary angioplasty implant and graft; I48.91 Unspecified atrial fibrillation; K21.9 Gastro-esophageal reflux disease without esophagitis; R10.9 Unspecified abdominal pain